=== PATIENT | male | born 1965 | race Caucasian/White ===

== ENCOUNTER 2016-09-24 14:09 | Emergency (ER) | payer MEDICARE ==
[~2016-09-24] VITALS: Ht 180.3 cm; Wt 85.3 kg
[~2016-09-24 14:09] MED LIST: /DULO30CA PO; ACET500C OR; AMBI10TA OR; ASPI81TA83 OR; COUM1TAB17 PO; COUM2.5T17 PO; CYMB60CA3 PO; EPIP0.3I IM; LISI10TA4 PO; LISINOPRIL/HCTZ PO; LYRI150C OR; MULTIVIT PO; OXYC-141 PO; OXYC-517 PO; PERC5TAB12 PO; TYLE325T5 PO
[2016-09-24] MEDS ORDERED: HYDROmorphone HCL 1 MG/ML SYRINGE (J1170) IM ONE (15:30)
[2016-09-24] MEDS ORDERED: HYDROmorphone HCL 1 MG/ML SYRINGE (J1170) IV ONE (15:30)
--- NOTE | 2016-09-24 16:18 | REP ---
RIGHT FEMUR: AP and lateral views of the right femur are performed. No fracture or dislocation is seen. Total right knee prosthesis is noted. There are moderate degenerative changes at the right hip with joint space narrowing, subchondral sclerosis and spurring. IMPRESSION: No acute fracture or dislocation. Signed by Dre Fuller MD 09/24/2016 05:26 P
[2016-09-24 16:26] VITALS: BP 153/87
[2016-12-21] MEDS ORDERED: VITA100054 PO (11:05)
[2016-12-21] MEDS ORDERED: AMBI5TAB PO (11:05)
[2017-01-12] MEDS ORDERED: OXYC10TA12 PO (09:55)
[2017-01-12] MEDS ORDERED: COLA100C5 PO (09:55)
== END 2016-09-24 16:35 | disposition home or self-care (01) ==
LOC: M ED 15:27
DX: S73.101A Unspecified sprain of right hip, initial encounter (principal); W01.0XXA Fall on same level from slipping, tripping and stumbling without subsequent striking against object, initial encounter; Y92.019 Unspecified place in single-family (private) house as the place of occurrence of the external cause; Y93.89 Activity, other specified; Y99.9 Unspecified external cause status; I10 Essential (primary) hypertension; J30.1 Allergic rhinitis due to pollen; Z87.442 Personal history of urinary calculi; Z96.651 Presence of right artificial knee joint; Z79.891 Long term (current) use of opiate analgesic; Z79.899 Other long term (current) drug therapy; Z91.030 Bee allergy status
CPT/HCPCS: 73552; 96372; 99283; J1170

== ENCOUNTER → 2016-09-28 | Outpatient (CLI) | payer MEDICARE ==
[~2016-09-28] MED LIST changes: +CONRAY-43 43% 50ML VIAL (Q9960) As Ordered ONE; +COUM2.5T11 PO; -COUM2.5T17 PO; +LIDOCAINE 1% MDV 20ML VIAL As Ordered ONE; -OXYC-141 PO; +OXYC-299 PO; -PERC5TAB12 PO; +PERC5TAB6 PO; +TRIAMCINOLONE ACETONIDE SUSP 40 MG/ML VIAL (J3301) As Ordered ONE
== END ==
LOC: M RADPRO 10:18
PROVIDERS: ATTEND Physician Assistant
DX: M16.11 Unilateral primary osteoarthritis, right hip (principal); Z91.030 Bee allergy status; J30.89 Other allergic rhinitis
CPT/HCPCS: 20610; 77002; J3301; Q9960

== ENCOUNTER 2016-12-22 13:20 | Outpatient (CLI) | payer MEDICARE ==
[~2016-12-22] VITALS: Ht 180.3 cm; Wt 90.7 kg
[~2016-12-22 13:20] MED LIST changes: +AMBI5TAB PO; -CONRAY-43 43% 50ML VIAL (Q9960) As Ordered ONE; -COUM2.5T11 PO; +COUM2.5T17 PO; -LIDOCAINE 1% MDV 20ML VIAL As Ordered ONE; +OXYC-141 PO; -OXYC-299 PO; +PERC5TAB12 PO; -PERC5TAB6 PO; -TRIAMCINOLONE ACETONIDE SUSP 40 MG/ML VIAL (J3301) As Ordered ONE; +VITA100054 PO
[2016-12-22] MEDS ORDERED: NS 1,000 ML IV ONE (13:30)
[2016-12-22] MEDS ORDERED: LIDOCAINE 2% INJ 100 MG/5 ML SDV (FOR ANES.) As Ordered ONE (13:58)
[2016-12-22] MEDS ORDERED: PROPOFOL 200 MG/20 ML VIAL As Ordered ONE (13:58)
--- NOTE | 2016-12-22 14:17 | ROOR ---
Patient Name: Aaron Ceja Procedure Date: 12/22/2016 1:58 PM Date of : 1965 Age: 51 Room: [facility] Gender: Male Note Status: Finalized Procedure: Total Colonoscopy to Cecum Indications: Screening for colorectal malignant neoplasm, Last colonoscopy: 2006 Providers: Zackary Torres MD Referring MD: KAPIL BRISENO Requesting Provider: Medicines: Monitored Anesthesia Care Complications: No immediate complications. Procedure: Pre-Anesthesia Assessment: - The heart rate, respiratory rate, oxygen saturations, blood pressure, adequacy of pulmonary ventilation, and response to care were monitored throughout the procedure. The Colonoscope was introduced through the anus and advanced to the cecum, identified by appendiceal orifice and ileocecal valve. The colonoscopy was performed without difficulty. The patient tolerated the procedure well. The quality of the bowel preparation was excellent. Findings: The perianal and digital rectal examinations were normal. Non-bleeding internal hemorrhoids were found during retroflexion. The hemorrhoids were small and Grade I (internal hemorrhoids that do not prolapse). Multiple small and large-mouthed diverticula were found in the recto-sigmoid colon, sigmoid colon and descending colon. The exam was otherwise without abnormality on direct and retroflexion views. Impression: - Non-bleeding internal hemorrhoids. - Diverticulosis in the recto-sigmoid colon, in the sigmoid colon and in the descending colon. - The examination was otherwise normal on direct and retroflexion views. - No specimens collected. - The exam was otherwise normal to the cecum. Recommendation: - Patient has a contact number available for emergencies. The signs and symptoms of potential delayed complications were discussed with the patient. Return to normal activities tomorrow. Written discharge instructions were provided to the patient. - High fiber diet. - Discharge patient to home. - Continue present medications. - Repeat colonoscopy in 10 years for screening purposes. - Return to referring physician. - The findings and recommendations were discussed with the patient's family. Zackary Torres MD Zackary Torres MD 12/22/2016 2:17:02 PM This report has been signed electronically. Number of Addenda: 0 Note Initiated On: 12/22/2016 1:58 PM Estimated Blood Loss: Estimated blood loss: none.
[2016-12-22 14:43] VITALS: BP 120/83
[2017-01-12] MEDS ORDERED: COLA100C5 PO (09:55)
[2017-01-12] MEDS ORDERED: OXYC10TA12 PO (09:55)
== END 2016-12-22 14:46 | disposition home or self-care (01) ==
LOC: M OPP 13:20
PROVIDERS: ATTEND Internal Medicine Gastroenterology
DX: Z12.11 Encounter for screening for malignant neoplasm of colon (principal); K64.0 First degree hemorrhoids; K57.30 Diverticulosis of large intestine without perforation or abscess without bleeding; I10 Essential (primary) hypertension; F17.210 Nicotine dependence, cigarettes, uncomplicated; M19.90 Unspecified osteoarthritis, unspecified site; Z79.899 Other long term (current) drug therapy; Z91.030 Bee allergy status; J30.2 Other seasonal allergic rhinitis

== ENCOUNTER → 2017-01-12 | Outpatient (CLI) | payer MEDICARE ==
[~2017-01-12] MED LIST changes: +COLA100C5 PO; +OXYC10TA12 PO
[2017-01-12 11:04] LABS: MEAN CORPUSCULAR HEMOGLOBIN 32.8 pg (27.0-33.0); MEAN CORPUSCULAR HGB CONC 33.6 g/dl (32.0-36.5); MEAN CORPUSCULAR VOLUME 97.8 fl (80.0-96.0); RED CELL DISTRIBUTION WIDTH 13.8 % (11.5-14.5); WHITE BLOOD COUNT 10.8 10^3/uL (4.0-10.0)
[2017-01-12 11:14] LABS: INR 1.07
--- NOTE | 2017-01-12 11:41 | REP ---
A PA and lateral chest: Comparison 11/03/2015. There is chronic elevation of the right hemidiaphragm, unchanged, likely eventration. There is an orthopedic stabilization plate of the left clavicle, unchanged. Lung copeland are clear. Cardiac size is normal. The eligio, mediastinum, and bony thorax are unremarkable. Impression: There are no acute cardiopulmonary findings. There are chronic stable findings as described. Signed by Dre Rick MD 01/12/2017 11:32 A
[2017-01-12 11:44] LABS: ALBUMIN/GLOBULIN RATIO 1.29 (1.00-1.93); ALKALINE PHOSPHATASE 101 U/L (45-117); ALT/SGPT 22 U/L (12-78); ANION GAP 5 MEQ/L (8-16); AST/SGOT 14 U/L (15-37); BILIRUBIN,TOTAL 0.4 MG/DL (0.2-1.0); BLOOD UREA NITROGEN 19 MG/DL (7-18); CALCIUM LEVEL 9.6 MG/DL (8.5-10.1); CARBON DIOXIDE LEVEL 29 MEQ/L (21-32); CHLORIDE LEVEL 106 MEQ/L (98-107); CREATININE FOR GFR 1.09 MG/DL (0.70-1.30); GLOMERULAR FILTRATION RATE > 60.0 (>56); GLUCOSE, FASTING 90 MG/DL (70-105); SODIUM LEVEL 140 MEQ/L (136-145); TOTAL PROTEIN 7.1 GM/DL (6.4-8.2)
--- NOTE | 2017-01-12 20:58 | ECGEPIP ---
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
== END ==
LOC: M ADMPAT 09:25
PROVIDERS: ATTEND Orthopaedic Surgery
DX: M16.11 Unilateral primary osteoarthritis, right hip (principal); Z01.818 Encounter for other preprocedural examination; I10 Essential (primary) hypertension; F32.9 Major depressive disorder, single episode, unspecified; Z79.899 Other long term (current) drug therapy

== ENCOUNTER 2017-01-26 05:44 | Inpatient (IN) | payer MEDICARE ==
[2017-01-12 09:58] VITALS: BP 128/80
--- NOTE | 2017-01-24 08:04 | HPE ---
DATE OF ADMISSION: 01/26/2017 ATTENDING PHYSICIAN: Dr. Rivero CHIEF COMPLAINT: Right hip pain and stiffness. HISTORY: This pleasant 51-year-old male patient with progressive worsening left hip pain and stiffness. He failed to improve with conservative management. He has elected for surgery for his continued symptoms. He has pain with weightbearing activities and activities of daily living. He has consented for a right total hip arthroplasty by Dr. Rivero. X-rays notable for end-stage degenerative changes of his right hip. Medical optimization by Dr. Cali not present for review today. ALLERGIES: NO KNOWN DRUG ALLERGIES. CURRENT MEDICATIONS: - Lisinopril 40 mg 1 tablet once per day - Colace 100 mg 1 tablet twice a day - Ambien 5 mg at bedtime as needed - vitamin D 50,000 units 1 tablet once per week - oxycodone 10 mg 1 tablet twice a day as needed for pain MEDICAL HISTORY: Includes symptomatic osteoarthritis of the right hip, hypertension, depression. PAST SURGICAL HISTORY: Includes kidney stone, bilateral knee replacement. SOCIAL HISTORY: Does smoke. He does not use alcohol. FAMILY HISTORY: Noncontributory. REVIEW OF SYSTEMS: Denies fever or chills. Denies chest pain, shortness breath or cough. Denies difficulty breathing. Denies abdominal pain. Denies nausea or vomiting. He has persistent pain in his right hip with weightbearing activities. PHYSICAL EXAMINATION: Exam today reveals a well-nourished, well-developed alert male patient. His mood and affect appropriate for situation. He sits comfortably in the exam room table. Neck is supple without adenopathy or JVD. Lungs are clear to auscultation without rales or wheeze. Heart: Regular rate and rhythm. Abdomen: Bowel sounds are present. Vital signs: Height 70 inches, weight 196 pounds, temperature 97.3, blood pressure 110/62, pulse 71, respirations 15. Exam of the right hip reveals a decreased internal-external rotation of the hip and very irritable hip range of motion. Straight leg raise testing is negative. The skin is intact. No erythema, edema or ecchymosis. Well-perfused right lower extremity sensation is intact. Distal neurovascular intact as well. LABORATORY DATA: His PT is 14.0, INR 1.07, glucose 90.19, creatinine 1.09, sodium 140, potassium 5. Urine culture no growth. Nasal culture normal yossi. Urinalysis within normal limits. Sed rate 12, WBC count is 10.8, RBC count 4.84, hemoglobin 14.7, hematocrit 43.7. Chest x-ray: No acute cardiopulmonary process noted. EKG sinus rhythm. IMPRESSION: Symptomatic osteoarthritis of the right hip. PLAN: He has consented for right total hip arthroplasty by Dr. Rivero. cc: Stephon Rivero MD
[~2017-01-26] VITALS: Ht 180.3 cm; Wt 88.0 kg
[2017-01-26] VITALS (8 sets, daily range): BP systolic 100–122; BP diastolic 63–82; O2SAT 98
[2017-01-26] MEDS ORDERED: LR 1,000 ML IV ONE (06:00)
[2017-01-26] MEDS ORDERED: LR 1,000 ML IV SCH ×3 (06:30→09:45)
[2017-01-26] MEDS ORDERED: ceFAZolin 1GM INJ (J0690) As Ordered ONE (06:36)
[2017-01-26] MEDS ORDERED: EPINEPHrine INJ 1 MG/ML 1ML AMP As Ordered ONE (06:37)
[2017-01-26] MEDS ORDERED: TRANEXAMIC ACID 100 MG/ML 10ML VIAL As Ordered ONE (06:37)
--- NOTE | 2017-01-26 08:05 | IPN ---
DATE: 01/26/2017 Patient wishes to proceed with a right total hip arthroplasty. He was seen and examined today. He understands the nature of the procedure, the risks of bleeding, infection, damage to nerves, vessels, persistent pain, wear loosening, dislocation, leg length inequality, blood clots, medical problems, , among others. I anticipate doing a right [place] total hip arthroplasty and he has chosen to go with a likely ceramic head.
[2017-01-26] MEDS ORDERED: VASOPRESSIN INJ 20 UNITS/ML VIAL As Ordered ONE (08:08)
[2017-01-26] MEDS ORDERED: KETAMINE HCL 200 MG/20 ML VIAL As Ordered ONE (08:29)
[2017-01-26] MEDS ORDERED: ATROPINE SULF 1MG/10ML SYRINGE (J0461) As Ordered ONE ×2 (08:38→10:37)
[2017-01-26] MEDS ORDERED: CALCIUM CHLORIDE 10% 1 GM/10 ML SYR As Ordered ONE (08:38)
[2017-01-26] MEDS ORDERED: LIDOCAINE 2% INJ 100 MG/5 ML SDV (FOR ANES.) As Ordered ONE (08:38)
[2017-01-26] MEDS ORDERED: fentaNYL 100 MCG/2 ML INJECTION (J3010) As Ordered ONE (08:39)
[2017-01-26] MEDS ORDERED: MIDAZOLAM INJ 2 MG/2 ML VIAL (J2250) As Ordered ONE (08:39)
[2017-01-26] MEDS ORDERED: PROPOFOL 500 MG/50 ML VIAL As Ordered ONE (08:39)
[2017-01-26] MEDS ORDERED: PHENYLEPHRINE INJ 10MG/ML VIAL (J2370) As Ordered ONE (08:42)
[2017-01-26] MEDS ORDERED: PHENYLephrine HCL 500 MCG/5 ML (100MCG/ML) SYRINGE (J2370) As Ordered ONE (08:46)
[2017-01-26] MEDS ORDERED: MORPHINE 1MG/ML IN 0.9% NACL 100ML IV BAG As Ordered ONE (08:46)
[2017-01-26] MEDS ORDERED: ePHEDrine SULFATE 25 MG/5 ML(5MG/ML) SYRINGE As Ordered ONE (08:46)
[2017-01-26] MEDS ORDERED: ONDANSETRON 4MG/2ML VIAL (J2405) IV PRN ×2 (09:45→10:00)
[2017-01-26] MEDS ORDERED: fentaNYL 100 MCG/2 ML INJECTION (J3010) IV PRN (09:45)
[2017-01-26] MEDS ORDERED: MORPHINE 1MG/ML IN 0.9% NACL 100ML IV BAG IV PRN (10:00)
[2017-01-26] MEDS ORDERED: diphenhydrAMINE INJ 50MG/ML VIAL (J1200) IV PRN (10:00)
[2017-01-26] MEDS ORDERED: NALOXONE INJ 0.4 MG/1 ML VIAL (J2310) IV PRN ×2 (10:00→15:30)
[2017-01-26] MEDS ORDERED: EPIDURAL/PCA KEYS XX PRN (10:00)
[2017-01-26] MEDS ORDERED: NALBUPHINE HCL 10 MG/ML AMP (J2300) IV PRN (10:00)
[2017-01-26] MEDS ORDERED: ACETAMINOPHEN TAB 650MG DOSE (2X325MG) PO PRN (10:00)
[2017-01-26] MEDS ORDERED: FLEET ENEMA PR PRN (10:00)
--- NOTE | 2017-01-26 11:33 | RO ---
DATE OF PROCEDURE: 01/26/2017 PREOPERATIVE DIAGNOSIS: Right hip osteoarthritis. POSTOPERATIVE DIAGNOSIS: Right hip osteoarthritis. PROCEDURE: Right total hip arthroplasty using a Bowie size 6, a +5, 36 ball and a 54 cup. This is a ceramic ball SURGEON: Stephon Rivero MD PATCHER WOOD WELDER: Letitia Rivero NP ANESTHESIA: Spinal. ESTIMATED BLOOD LOSS: 200 COMPLICATIONS: None. INDICATIONS: This is a 51-year-old gentleman who has had gradually worsening right hip pain. He has done well with knee replacement in the past. He wished to go ahead with a hip replacement due to severe arthritis and ongoing pain. He understood the nature of this. The risks of bleeding, infection, damage to nerves, vessels, persistent pain, wear loosening, dislocation, leg length inequality, blood clots, medical problems, among others. DESCRIPTION OF PROCEDURE: The patient taken to replace supine position after spinal anesthesia was induced. He was placed in the left lateral decubitus position on the [place] positioner. All areas were padded appropriately. The right hip was prepped and draped in usual sterile fashion. Time-out was performed. I then created a longitudinal incision over the lateral aspect the hip and sharp dissection was carried down subcutaneous tissue, controlled hemostasis with cautery, incised the fascia jessica and then divided the abductors, taking approximately the anterior 40% of the abductor off of the femur, gradually externally rotated the femur as we exposed the neck and divided the labrum. I then dislocated the hip with a bone hook and the journeyman operator assistant's help and put the leg in the bag. Used a canal initiating reamer followed by the intramedullary canal finding reamer, the lateralizing reamer and then placed a trial broach in the canal as a template and made the neck cut at about three-quarters of a fingerbreadth up from the lesser trochanter. The head was removed. There is advanced arthritis. We then directed our attention to the acetabulum, anterior and posterior retractors were placed. I removed the labrum from around the acetabulum and the floor of the acetabulum was palpated. I then sequentially began reaming, reamed up to a size 53, which had good bleeding bone and good concentric reaming. I felt that this was the appropriate size. I then irrigated copiously and placed the 54 cup in the appropriate amount of anteversion and horizontal tilt and then impacted it in place. Excellent fit was noted. It seemed to be down and well seated. The apex hole eliminator was placed. The 54 x 36 cup was then inserted, impacted in place, that is the liner impacted into the cup. Again irrigated and directed our attention back to the femur, removed some of the proximal metaphyseal bone and then broached up to a size 6, which had a good fit. It was well aligned with the cut. Then I placed the +1.5 followed by the +5 neck length on the 36 ball and reduced the hip with the journeyman operator assistant's help. Put the hip through range of motion. I liked the 5 better. There was still little bit of shuck in full extension and it was very stable in flexion, internal rotation, extension, external rotation. There was no impingement. I then removed the trial components and irrigated copiously. Impacted in the size 6 standard stem Bowie and this was very well seated. I had irrigated prior to placement of this. I then dried the taper placed the ceramic 36 ball +5, impacted this in place, made sure it was well seated and then reduced the hip the journeyman operator assistant's help. I put the hip through range of motion and was very pleased with the stability and soft tissue tension and positioning. Copious irrigation was then performed. At this point, TXA solution was utilized. The deep layer was closed with #1-0 Vicryl suture. The abductor was repaired with multiple #1-0 Vicryl sutures and excellent repair was noted. I then repaired the fascia jessica with #1-0 Vicryl suture in interrupted fashion, followed by a Stratafix running suture in both directions. Excellent watertight closure was noted. I then irrigated, closed the subcutaneous with #2-0 Vicryl and the skin with janna. Sterile dressing was applied. He was taken to recovery room in stable condition. There were no known complications. He appeared to have symmetric leg lengths. The journeyman operator assistant was instrumental in holding retractors and helping reduce and dislocate the hip, assisting in wound closure.
[2017-01-26] MEDS ORDERED: ACETAMINOPHEN 500 MG TAB PO PRN (15:30)
[2017-01-26] MEDS: PERCOCET 5MG/325MG TAB PO PRN ×2 (15:42→23:58)
[2017-01-26] MEDS ORDERED: WARFARIN SOD 7.5 MG TAB PO ONE (17:00)
[2017-01-26] MEDS: ACETAMINOPHEN 500 MG TAB PO SCH (21:05)
[2017-01-26] MEDS: MORPHINE 30 MG SA TAB PO SCH (21:05)
[2017-01-27 00:45] VITALS: BP 116/58
[2017-01-27] MEDS: PERCOCET 5MG/325MG TAB PO PRN ×3 (04:14→18:46)
[2017-01-27 06:00] VITALS: BP 106/66
[2017-01-27 07:11] LABS: MEAN CORPUSCULAR HEMOGLOBIN 32.4 pg (27.0-33.0); MEAN CORPUSCULAR HGB CONC 33.7 g/dl (32.0-36.5); MEAN CORPUSCULAR VOLUME 96.1 fl (80.0-96.0); RED CELL DISTRIBUTION WIDTH 13.5 % (11.5-14.5); WHITE BLOOD COUNT 10.5 10^3/uL (4.0-10.0)
[2017-01-27 07:25] LABS: INR 1.34
--- NOTE | 2017-01-27 07:45 | IPNPDOC ---
Subjective Date Seen The patient was seen on 01/27/17. Subjective Chief Complaint/HPI The patient is a 51-year-old male admitted with a reason for visit of Arthritis Right Hip. General: Denies: ROS Unobtainable, Chills, Night Sweats, Fatigue, Malaise, Normal Appetite, Other Symptoms Constitutional: Denies: Chills, Fever, Malaise, Night Sweats, Weakness, Fatigue , Weight Loss, Lethargy, Other Eyes: Denies: Pain, Vision change, Conjunctivae inflammation, Eyelid inflammation, Redness, Other ENT: Denies: Head Aches, Ear Pain, Dysphagia, Sinus Congestion, Post Nasal Drip , Sore Throat, Epistaxis, Other Symptoms Skin: Denies: Rash, Lesions, Jaundice, Bruising, Itching, Dry, Breakdown, Nail Changes, Other Pulmonary: Denies: Dyspnea, Cough, Pleuritic Chest Pain, Other Symptoms Cardiovascular: Denies: Chest Pain, Palpitations, Orthopnea, Paroxysmal Noc. Dyspnea, Edema, Lt Headedness, Other Symptoms Gastrointestinal: Denies: Nausea, Vomiting, Abdominal Pain, Diarrhea, Constipation, Melena, Hematochezia, Other Symptoms Genitourinary: Denies: Dysuria, Frequency, Incontinence, Hematuria, Retention, Other Symptoms Hematologic: Denies: Bruising, Bleeding Excessively, Petecchia, Purpura, Enlarged Lymph Nodes, Other Hematologic Musculoskeletal: Reports: Leg Pain Objective Physical Examination General Exam: Positive: Alert, Cooperative, No Acute Distress Eye Exam: Positive: PERRLA, Conjunctiva & lids normal, EOMI ENT Exam: Positive: Atraumatic Neck Exam: Positive: Supple Chest Exam: Positive: Clear to auscultation, Normal air movement Heart Exam: Positive: Rate Normal, Regular Rhythm Abdomen Exam: Positive: Normal bowel sounds, Soft, Negative: Tenderness Extremity Exam: Negative: Edema Neuro Exam: Positive: Normal Speech Psych Exam: Positive: Mental status NL, Mood NL Assessment /Plan Problems (1) Osteoarthritis Status: Chronic Problem Specific Plan: Consult Specialist (2) Hypertension Status: Chronic Problem Specific Plan: Monitor Clinically Problem Text: lisinopril on hold (3) Depression Status: Chronic Problem Specific Plan: Monitor Clinically Plan/VTE VTE Prophylaxis Ordered?: Yes (as per ortho) Plan Diet: Continue Current (as per ortho) Activity: Continue Current Therapy: PT Diagnostics: Repeat Labs in AM Anticipated Discharge: Home, Home With Services VS, I&O, 24H, [place]q Vital Signs/I&O Vital Signs Date Time Temp Pulse Resp B/P (MAP) Pulse Ox O2 Delivery O2 Flow Rate FiO2 01/27/17 06:00 97.8 91 18 106/66 (79) 96 Nasal Cannula 2.0 Laboratory Data 24H LABS Laboratory Tests 2 01/27/17 06:45: Nucleated Red Blood Cells % (auto) 0.0, Prothrombin Time 16.9H, Prothromb Time International Ratio 1.34 CBC/BMP Laboratory Tests 01/27/17 06:45 Red Blood Count 4.11 L, Mean Corpuscular Volume 96.1 H, Mean Corpuscular Hemoglobin 32.4, Mean Corpuscular Hemoglobin Concent 33.7, Red Cell Distribution Width 13.5 FATUMA WANG MD Jan 27, 2017 07:45
[2017-01-27] MEDS: ACETAMINOPHEN 500 MG TAB PO SCH ×2 (08:11→21:50)
[2017-01-27] MEDS: SENOKOT S TAB PO SCH ×2 (08:11→21:50)
[2017-01-27] MEDS: MIRALAX *UNIT DOSE* 17GM PACKET PO SCH (08:12)
[2017-01-27] MEDS: MORPHINE 30 MG SA TAB PO SCH ×2 (08:12→21:49)
[2017-01-27] MEDS: MOM 30ML SUSPENSION UDC PO SCH (08:12)
--- NOTE | 2017-01-27 09:21 | REP ---
RIGHT HIP, TWO VIEWS: HISTORY: Hip replacement. COMPARISON: 09/24/2016. The patient is status post right total hip replacement. There is no acute fracture dislocation. Surgical janna are present in the overlying soft tissue. IMPRESSION: The patient is status post right total hip replacement. There is anatomic alignment. Signed by Luis Alberto Moise MD 01/27/2017 09:28 A
[2017-01-27 15:35] VITALS: BP 80/50
[2017-01-27] MEDS ORDERED: NS 500 ML IV ONE (16:15)
[2017-01-27 16:28] LABS: ANION GAP 7 MEQ/L (8-16); BLOOD UREA NITROGEN 21 MG/DL (7-18); CALCIUM LEVEL 8.9 MG/DL (8.5-10.1); CARBON DIOXIDE LEVEL 26 MEQ/L (21-32); CHLORIDE LEVEL 99 MEQ/L (98-107); CREATININE FOR GFR 1.06 MG/DL (0.70-1.30); GLOMERULAR FILTRATION RATE > 60.0 (>56); GLUCOSE, FASTING 98 MG/DL (70-105); POTASSIUM SERUM 4.5 MEQ/L (3.5-5.1); SODIUM LEVEL 132 MEQ/L (136-145)
[2017-01-27] MEDS ORDERED: WARFARIN SOD 7.5 MG TAB PO ONE (17:00)
[2017-01-27 18:46] VITALS: BP 119/59
[2017-01-27 22:00] VITALS: BP 107/68; O2SAT 94
[2017-01-28 06:00] VITALS: BP 127/86
[2017-01-28 06:38] LABS: MEAN CORPUSCULAR HEMOGLOBIN 32.4 pg (27.0-33.0); MEAN CORPUSCULAR HGB CONC 33.2 g/dl (32.0-36.5); MEAN CORPUSCULAR VOLUME 97.5 fl (80.0-96.0); PLATELET COUNT, AUTOMATED 257 10^3/uL (150-450); RED CELL DISTRIBUTION WIDTH 13.6 % (11.5-14.5); WHITE BLOOD COUNT 9.7 10^3/uL (4.0-10.0)
[2017-01-28] MEDS: PERCOCET 5MG/325MG TAB PO PRN ×2 (06:47→14:12)
[2017-01-28 06:51] LABS: INR 2.14
[2017-01-28] MEDS: MIRALAX *UNIT DOSE* 17GM PACKET PO SCH (08:43)
[2017-01-28] MEDS: MORPHINE 30 MG SA TAB PO SCH ×2 (08:44→21:07)
[2017-01-28] MEDS: ACETAMINOPHEN 500 MG TAB PO SCH ×2 (08:45→21:08)
[2017-01-28] MEDS: SENOKOT S TAB PO SCH ×2 (08:45→21:08)
[2017-01-28] MEDS: MOM 30ML SUSPENSION UDC PO SCH (08:46)
[2017-01-28 09:00] VITALS: O2SAT 94
[2017-01-28 14:00] VITALS: BP 142/90
[2017-01-28 20:00] VITALS: O2SAT 96
[2017-01-28 22:00] VITALS: BP 128/67
[2017-01-29] MEDS: PERCOCET 5MG/325MG TAB PO PRN ×3 (02:00→11:44)
[2017-01-29 06:00] VITALS: BP_SYST 128; BP_SYST 153; BP_DIAS 67; BP_DIAS 74
[2017-01-29 07:08] LABS: INR 2.46
[2017-01-29] MEDS: MOM 30ML SUSPENSION UDC PO SCH ×2 (08:40→08:41)
[2017-01-29] MEDS: MIRALAX *UNIT DOSE* 17GM PACKET PO SCH ×2 (08:40→08:41)
[2017-01-29] MEDS: ACETAMINOPHEN 500 MG TAB PO SCH (08:40)
[2017-01-29] MEDS: MORPHINE 30 MG SA TAB PO SCH (08:40)
[2017-01-29] MEDS: SENOKOT S TAB PO SCH (08:40)
[2017-01-29] MEDS ORDERED: PERC5TAB12 PO (08:54)
[2017-01-29] MEDS ORDERED: COUM2.5T17 PO (08:56)
--- NOTE | 2017-02-01 18:21 | DSES ---
DATE OF ADMISSION: 01/26/2017 DATE OF DISCHARGE: 01/29/2017 ATTENDING PHYSICIAN: Dr Stephon Rivero ADMITTING DIAGNOSIS: Right hip osteoarthritis. OTHER DIAGNOSES: 1. Hypertension. 2. Depression. DISCHARGE DIAGNOSIS: Right hip osteoarthritis status post right total hip arthroplasty. HISTORY: Patient is a 51-year-old male with progressively worsening right hip pain and stiffness. He failed to improve with conservative measures. He continues to have pain with weightbearing activities and activities of daily living. Patient consented for an elective right total hip arthroplasty with Dr. Rivero for his continued symptoms. OPERATION PERFORMED: Right total hip arthroplasty. HOSPITAL COURSE: The patient underwent a right total hip arthroplasty under spinal anesthesia, which was uneventful. Hospital course was without complication, and he was up with physical therapy per their protocol weightbearing as tolerated on the right lower extremity. He was discharged on oral pain medications and will resume his preoperative medications and diet. He will take his Coumadin and use his thromboembolic deterrent stockings for 30 days postoperatively to prevent deep vein thrombosis. He will followup in our office in 12-14 days for a wound check and staple removal. He is encouraged to contact our office sooner if there is any increased pain, drainage, numbness or tingling in the extremity, redness, fever greater than 101 degrees, or any other concerns. Please see medical record for additional details. PINA
== END 2017-01-29 14:30 | disposition home health service (06) | DRG 470 ==
LOC: M OR 05:44 → M MS5PR 11:55
PROVIDERS: ADMIT Orthopaedic Surgery; ATTEND Orthopaedic Surgery
PROC: 0SR904Z Replacement of Right Hip Joint with Ceramic on Polyethylene Synthetic Substitute, Open Approach (ICD-10-PCS; principal; 2017-01-26 07:30)
DX: M16.11 Unilateral primary osteoarthritis, right hip (principal); I10 Essential (primary) hypertension; F17.210 Nicotine dependence, cigarettes, uncomplicated; F32.9 Major depressive disorder, single episode, unspecified; G47.00 Insomnia, unspecified; J30.9 Allergic rhinitis, unspecified; E55.9 Vitamin D deficiency, unspecified; Z96.653 Presence of artificial knee joint, bilateral; Z79.891 Long term (current) use of opiate analgesic; Z79.899 Other long term (current) drug therapy; Z91.030 Bee allergy status

== ENCOUNTER → 2017-02-01 | Outpatient (REF) | payer MEDICARE ==
[2017-02-01 14:24] LABS: INR 1.45
== END ==
LOC: M SHH 13:34
PROVIDERS: ATTEND Nurse Practitioner Family
DX: Z51.81 Encounter for therapeutic drug level monitoring (principal); Z79.01 Long term (current) use of anticoagulants

== ENCOUNTER → 2017-02-03 | Outpatient (REF) | payer MEDICARE ==
[2017-02-03 14:55] LABS: INR 1.46
== END ==
LOC: M SHH 14:07
PROVIDERS: ATTEND Nurse Practitioner Family
DX: Z51.81 Encounter for therapeutic drug level monitoring (principal); Z79.01 Long term (current) use of anticoagulants

== ENCOUNTER → 2017-02-07 | Outpatient (REF) | payer MEDICARE ==
[2017-02-07 14:00] LABS: INR 1.4
== END ==
LOC: M SHH 13:18
PROVIDERS: ATTEND Nurse Practitioner Family
DX: Z51.81 Encounter for therapeutic drug level monitoring (principal); Z79.01 Long term (current) use of anticoagulants

== ENCOUNTER → 2017-02-17 | Outpatient (REF) | payer MEDICARE ==
[2017-02-17 13:08] LABS: INR 1.59
== END ==
LOC: M SHH 12:34
PROVIDERS: ATTEND Nurse Practitioner Family
DX: Z51.81 Encounter for therapeutic drug level monitoring (principal); Z79.01 Long term (current) use of anticoagulants

== ENCOUNTER → 2017-02-22 | Outpatient (REF) | payer MEDICARE ==
[2017-02-22 15:22] LABS: INR 1.09
== END ==
LOC: M SHH 14:37
PROVIDERS: ATTEND Nurse Practitioner Family
DX: Z51.81 Encounter for therapeutic drug level monitoring (principal); Z79.01 Long term (current) use of anticoagulants

== ENCOUNTER → 2017-02-24 | Outpatient (REF) | payer MEDICARE ==
[2017-02-24 14:23] LABS: INR 1.29
== END ==
LOC: M SHH 13:49
PROVIDERS: ATTEND Nurse Practitioner Family
DX: Z51.81 Encounter for therapeutic drug level monitoring (principal); Z79.01 Long term (current) use of anticoagulants

== ENCOUNTER 2017-12-01 20:05 | Emergency (ER) | payer MEDICARE ==
[2017-12-01] MEDS: methylPREDNISolone INJ 125 MG/2 ML VIAL (J2930) IV (20:26)
[2017-12-01] MEDS: diphenhydrAMINE INJ 50MG/ML VIAL (J1200) IV (20:27)
[2017-12-01 20:28] LABS: BASO % 0.4 % (0.0-1.0); EOS # 0.2 10^3/uL (0.0-0.50); EOS % 2.4 % (0.0-3.0); HEMATOCRIT 46.4 % (42.0-52.0); HEMOGLOBIN 16.2 g/dl (13.5-17.5); IMMATURE GRANULOCYTE % 0.4 % (0-3.0); LYMPH # 2.1 10^3/uL (1.5-4.5); LYMPH % 26.6 % (24.0-44.0); MEAN CORPUSCULAR HEMOGLOBIN 32.9 pg (27.0-33.0); MEAN CORPUSCULAR HGB CONC 34.9 g/dl (32.0-36.5); MEAN CORPUSCULAR VOLUME 94.3 fl (80.0-96.0); MONO # 0.7 10^3/uL (0.0-0.8); MONO % 8.5 % (0.0-5.0); NEUTROPHILS # 4.9 10^3/uL (1.8-7.7); NEUTROPHILS % 61.7 % (36.0-66.0); PLATELET COUNT, AUTOMATED 313 10^3/uL (150-450); RED BLOOD COUNT 4.92 10^6/uL (4.30-6.10); WHITE BLOOD COUNT 7.9 10^3/uL (4.0-10.0)
[2017-12-01] MEDS: FAMOTIDINE IV BAG 20 MG in APPROPRIATE DILUENT 1 EA IV (20:36)
[2017-12-01 20:55] LABS: ANION GAP 10 MEQ/L (8-16); BLOOD UREA NITROGEN 31 MG/DL (7-18); CALCIUM LEVEL 9.5 MG/DL (8.5-10.1); CARBON DIOXIDE LEVEL 22 MEQ/L (21-32); CHLORIDE LEVEL 108 MEQ/L (98-107); CREATININE FOR GFR 1.46 MG/DL (0.70-1.30); GLOMERULAR FILTRATION RATE 53.6 (>56); GLUCOSE, FASTING 90 MG/DL (70-100); POTASSIUM SERUM 4.4 MEQ/L (3.5-5.1); SODIUM LEVEL 140 MEQ/L (136-145)
== END 2017-12-01 23:52 | disposition home or self-care (01) ==
LOC: M ED 20:05
DX: T63.441A Toxic effect of venom of bees, accidental (unintentional), initial encounter (principal); R21 Rash and other nonspecific skin eruption; L29.9 Pruritus, unspecified; F17.200 Nicotine dependence, unspecified, uncomplicated; I10 Essential (primary) hypertension
CPT/HCPCS: J1200

== ENCOUNTER → 2018-03-20 | Outpatient (CLI) | payer MEDICARE ==
[2018-03-20 13:34] LABS: ANION GAP 7 MEQ/L (8-16); BLOOD UREA NITROGEN 22 MG/DL (7-18); CALCIUM LEVEL 8.8 MG/DL (8.5-10.1); CARBON DIOXIDE LEVEL 24 MEQ/L (21-32); CHLORIDE LEVEL 108 MEQ/L (98-107); CHOLESTEROL LEVEL 161 MG/DL (<200); CHOLESTEROL RISK RATIO 4.025 (<5); CREATININE FOR GFR 1.06 MG/DL (0.70-1.30); GLOMERULAR FILTRATION RATE > 60.0 (>56); GLUCOSE, FASTING 89 MG/DL (70-100); HDL CHOLESTEROL 40 MG/DL (>40); LDL CHOLESTEROL 104 MG/DL (<100); NON-HDL-C 121 MG/DL; POTASSIUM SERUM 4.9 MEQ/L (3.5-5.1); SODIUM LEVEL 139 MEQ/L (136-145); TRIGLYCERIDES LEVEL 87 MG/DL (<150)
[2018-03-20 13:36] LABS: TOTAL 25(OH) VITAMIN D 37.9 NG/ML (30.0-100.0)
== END ==
LOC: M LAB 12:12
DX: I10 Essential (primary) hypertension (principal); E55.9 Vitamin D deficiency, unspecified
CPT/HCPCS: 82306

== ENCOUNTER 2018-04-28 06:02 | Day surgery (SDC) | payer MEDICARE ==
[~2018-04-28] VITALS: Ht 180.3 cm; Wt 91.6 kg
[~2018-04-28 06:02] MED LIST changes: +GABA-843 PO; +PRED20TA PO; +VITA50005 PO
[2018-04-28] MEDS ORDERED: LR 1,000 ML IV ONE (07:00)
[2018-04-28] MEDS ORDERED: LIDOCAINE 1% SDV INJ 30 ML VIAL As Ordered ONE (07:11)
[2018-04-28] MEDS ORDERED: BUPIVACAINE HCL 0.25% 30 ML VIAL As Ordered ONE (07:11)
[2018-04-28] MEDS ORDERED: NEOSTIGMINE 10 MG/10 ML VIAL (J2710) As Ordered ONE (07:49)
[2018-04-28] MEDS ORDERED: ONDANSETRON 4MG/2ML VIAL (J2405) As Ordered ONE (07:49)
[2018-04-28] MEDS ORDERED: ROCURONIUM BROMIDE 50 MG/5 ML VIAL As Ordered ONE ×2 (07:49→08:20)
[2018-04-28] MEDS ORDERED: GLYCOPYRROLATE INJ 0.2 MG/ML 2 ML VIAL As Ordered ONE (07:49)
[2018-04-28] MEDS ORDERED: MIDAZOLAM INJ 2 MG/2 ML VIAL (J2250) As Ordered ONE (07:49)
[2018-04-28] MEDS ORDERED: fentaNYL 250 MCG/5 ML INJECTION (J3010) As Ordered ONE (07:49)
[2018-04-28] MEDS ORDERED: dexameTHASONE 4 MG/ML 1ML VIAL (J1100) As Ordered ONE (07:49)
[2018-04-28] MEDS ORDERED: PROPOFOL 200 MG/20 ML VIAL As Ordered ONE (07:49)
[2018-04-28] MEDS ORDERED: METOCLOPRAMIDE INJ 10MG/2ML VIAL (J2765) As Ordered ONE (07:49)
[2018-04-28] MEDS ORDERED: LIDOCAINE 2% INJ 100 MG/5 ML SDV (FOR ANES.) As Ordered ONE (07:49)
[2018-04-28] MEDS ORDERED: KETOROLAC 60 MG/2 ML VIAL (J1885) As Ordered ONE (08:12)
[2018-04-28] MEDS ORDERED: LR 1,000 ML IV SCH (09:30)
[2018-04-28] MEDS ORDERED: ONDANSETRON 4MG/2ML VIAL (J2405) IV PRN ×2 (09:30→09:45)
[2018-04-28] MEDS: PERCOCET 5MG/325MG TAB PO PRN ×2 (09:37→10:10)
[2018-04-28] MEDS: fentaNYL 100 MCG/2 ML INJECTION (J3010) IV PRN ×4 (09:37→09:52)
[2018-04-28] MEDS ORDERED: PERCOCET 5MG/325MG TAB PO PRN ×2 (09:45)
[2018-04-28] MEDS ORDERED: KETOROLAC 30 MG/ML VIAL (J1885) IV PRN (09:45)
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
[2018-04-28] MEDS ORDERED: MORPHINE 10 MG/ML 1ML VIAL (J2270) As Ordered ONE (09:56)
[2018-04-28] MEDS: MORPHINE 10 MG/ML 1ML VIAL (J2270) IV PRN ×4 (10:00→10:24)
[2018-04-28 13:20] VITALS: BP 134/92
== END 2018-04-28 13:30 | disposition home or self-care (01) ==
LOC: M SDC 06:02
PROVIDERS: ATTEND Surgery
DX: K43.0 Incisional hernia with obstruction, without gangrene (principal); I10 Essential (primary) hypertension; Z79.899 Other long term (current) drug therapy; F17.210 Nicotine dependence, cigarettes, uncomplicated; Z91.030 Bee allergy status
CPT/HCPCS: 49654; C1781; J0690; J1100; J1885; J2250; J2270; J2405; J2710; J2765; J3010

== ENCOUNTER 2018-05-13 18:38 | Emergency (ER) | payer MEDICARE ==
[~2018-05-13] VITALS: Ht 180.3 cm; Wt 98.2 kg
[2018-05-13] MEDS ORDERED: MORPHINE 2 MG/ML 1ML SYRINGE (J2270) IV PRN (20:00)
[2018-05-13] MEDS ORDERED: NS 1,000 ML IV ONE (20:00)
[2018-05-13] MEDS ORDERED: ONDANSETRON 4MG/2ML VIAL (J2405) IV ONE (20:00)
[2018-05-13 20:31] LABS: BASO # 0.1 10^3/uL (0.0-0.2); BASO % 0.9 % (0.0-1.0); EOS # 0.4 10^3/uL (0.0-0.50); EOS % 6.9 % (0.0-3.0); HEMATOCRIT 40.8 % (42.0-52.0); HEMOGLOBIN 13.6 g/dl (13.5-17.5); LYMPH # 1.6 10^3/uL (1.5-4.5); LYMPH % 27.7 % (24.0-44.0); MEAN CORPUSCULAR HEMOGLOBIN 32.9 pg (27.0-33.0); MEAN CORPUSCULAR HGB CONC 33.3 g/dl (32.0-36.5); MEAN CORPUSCULAR VOLUME 98.8 fl (80.0-96.0); MONO # 0.7 10^3/uL (0.0-0.8); MONO % 12.3 % (0.0-5.0); NEUTROPHILS # 2.9 10^3/uL (1.8-7.7); NEUTROPHILS % 51.7 % (36.0-66.0); PLATELET COUNT, AUTOMATED 350 10^3/uL (150-450); RED BLOOD COUNT 4.13 10^6/uL (4.30-6.10); WHITE BLOOD COUNT 5.6 10^3/uL (4.0-10.0)
--- NOTE | 2018-05-13 20:35 | REP ---
Clinical: Trauma. Fall. Technique: AP, lateral, bilateral oblique views of the left hand. Findings: Advanced chronic osteoarthritic changes at the third and fourth distal interphalangeal joints with chronic subluxation and angulation is appreciated. Underlying acute injury cannot be excluded. Mild/moderate arthritic degenerative changes are also appreciated involving the remainder of the interphalangeal joints and first metacarpophalangeal joint. Degenerative changes at the wrist including subchondral sclerosis, spurring and joint space narrowing at the first carpometacarpal joint as well as chondrocalcinosis at the radiocarpal joint. Evidence for old ulnar styloid fracture. Impression: 1. Osteoarthritic degenerative changes primarily noted at the third and fourth distal interphalangeal joints where superimposed acute subluxation or injury cannot be excluded. Correlation with mechanism of injury and point of tenderness is recommended. 2. Further osteoarthritic degenerative changes of the hand and wrist as noted above. Electronically Signed by Lawrence Kelly MD 05/13/2018 08:26 P
[2018-05-13 20:45] LABS: PROTHROMBIN TIME 13.3 SECONDS (12.1-14.4)
[2018-05-13 20:57] LABS: BLOOD UREA NITROGEN 16 MG/DL (7-18); CALCIUM LEVEL 8.7 MG/DL (8.5-10.1); CARBON DIOXIDE LEVEL 25 MEQ/L (21-32); CHLORIDE LEVEL 110 MEQ/L (98-107); CREATININE FOR GFR 1.05 MG/DL (0.70-1.30); GLOMERULAR FILTRATION RATE > 60.0 (>56); GLUCOSE, FASTING 87 MG/DL (70-100); POTASSIUM SERUM 4.5 MEQ/L (3.5-5.1); SODIUM LEVEL 143 MEQ/L (136-145)
[2018-05-13] MEDS ORDERED: ISOVUE-370 76% 100ML VIAL (Q9967) As Ordered ONE (21:00)
--- NOTE | 2018-05-13 22:16 | REPVR ---
EXAM: CT Abdomen and Pelvis With Contrast EXAM DATE/TIME: 05/13/2018 9:06 PM CLINICAL HISTORY: 53 years old, male; Injury or trauma; Fall; Initial encounter; Blunt; Generalized; Prior surgery; Surgery date: 3-7 days post-operative; Surgery type: Umbilical hernia repair; Additional info: Fall post surgical TECHNIQUE: Axial computed tomography images of the abdomen and pelvis with intravenous contrast. All CT scans at this facility use at least one of these dose optimization techniques: automated exposure control; mA and/or kV adjustment per patient size (includes targeted exams where dose is matched to clinical indication); or iterative reconstruction. Coronal and sagittal reformatted images were created and reviewed. CONTRAST: 100 ml of ISOVUE 370 administered intravenously. COMPARISON: CT ABD PELVIS W/O CONTRAST 05/13/2014 9:29 PM FINDINGS: Lower thorax: Linear stranding and groundglass at the lung bases, likely due to atelectasis and/or scarring. 4 mm left lower lobe nodular density (series 201, image 21). Elevated right hemidiaphragm. Small hiatal hernia and mild nonspecific distal esophageal wall thickening, suggesting chronic reflux/esophagitis. ABDOMEN: Liver: 6 mm low density lesion in the hepatic dome on the right, too small to characterize. Gallbladder and bile ducts: No radiodense gallstones. No biliary ductal dilatation. Pancreas: Unremarkable. Spleen: Unremarkable. Adrenals: Mild nonspecific bilateral adrenal thickening. 4 mm fat density right adrenal lesion, likely a myelolipoma. Kidneys and ureters: Mild left renal cortical scarring. 7.4 x 6.8 cm right renal cyst, similar to prior. No radiodense calculi. No hydronephrosis. Stomach and bowel: Moderate amount of retained stool in the colon. Scattered colonic diverticula without evidence of diverticulitis. No obstruction. No bowel wall thickening. No pneumatosis. Appendix: Normal. PELVIS: Bladder: Unremarkable. Reproductive: Mildly enlarged prostate. ABDOMEN and PELVIS: Intraperitoneal space: Trace ascites. No organized fluid collection. No free air. Bones/joints: No acute osseous abnormality. Osteopenia. Degenerative changes. Right hip arthroplasty in place. Right L5 pars defect. Soft tissues: Post surgical changes in the anterior abdominal wall. Fat containing supraumbilical hernias, similar to prior. Fat containing left inguinal hernia. Small right inguinal hernia, containing fat and a nonobstructed loop of small bowel. Vasculature: Mild atherosclerotic disease. No aneurysm or dissection. Lymph nodes: Small mesenteric lymph nodes, nonspecific in appearance. No pathologically enlarged lymph nodes. IMPRESSION: 1. No CT evidence of acute intra-abdominal or pelvic traumatic injury. 2. Trace nonspecific ascites. 3. 4 mm left lower lobe nodular density. For patients at low risk (minimal or absent history of smoking and of other known risk factors), no routine follow-up is indicated. For patients at high risk (history of smoking or of other known risk factors), consider optional CT at 12 months. (Amos et al., Fleischner Society, 2017) 4. Additional findings, as above. Electronically signed by: Jameel Marinelli On 05/13/2018 22:15:42 PM
[2018-05-13 22:53] VITALS: BP 133/78
--- NOTE | 2018-05-14 17:03 | ED PDOC ---
Post-Departure Follow-Up hope tian faxed formal report of ct abd/p fo rfu Floresita Castillo MD May 14, 2018 17:03
== END 2018-05-13 22:56 | disposition home or self-care (01) ==
LOC: M ED 18:38
DX: S60.222A Contusion of left hand, initial encounter (principal); S39.011A Strain of muscle, fascia and tendon of abdomen, initial encounter; W10.8XXA Fall (on) (from) other stairs and steps, initial encounter; Y92.018 Other place in single-family (private) house as the place of occurrence of the external cause; I10 Essential (primary) hypertension; Z79.899 Other long term (current) drug therapy; Z91.030 Bee allergy status; J30.89 Other allergic rhinitis
CPT/HCPCS: 73130; 74177; 80048; 85025; 85610; 96361; 96374; 96375; 99284; J2270; J2405; Q9967

== ENCOUNTER → 2019-01-09 | Outpatient (CLI) | payer MEDICARE ==
[~2019-01-09] MED LIST changes: -/DULO30CA PO; +CYMB1CAP5 PO; +LISI20TA19 PO; +NAPR-885 PO
[2019-01-09 15:12] LABS: HEMATOCRIT 50.2 % (42.0-52.0); HEMOGLOBIN 16.8 g/dl (13.5-17.5); MEAN CORPUSCULAR HEMOGLOBIN 33.6 pg (27.0-33.0); MEAN CORPUSCULAR HGB CONC 33.5 g/dl (32.0-36.5); MEAN CORPUSCULAR VOLUME 100.4 fl (80.0-96.0); PLATELET COUNT, AUTOMATED 346 10^3/uL (150-450); WHITE BLOOD COUNT 7.6 10^3/uL (4.0-10.0)
[2019-01-09 15:37] LABS: ALT/SGPT 26 U/L (12-78); BILIRUBIN,TOTAL 0.6 MG/DL (0.2-1.0); BLOOD UREA NITROGEN 23 MG/DL (7-18); CALCIUM LEVEL 10.3 MG/DL (8.5-10.1); CARBON DIOXIDE LEVEL 27 MEQ/L (21-32); CHLORIDE LEVEL 108 MEQ/L (98-107); CREATININE FOR GFR 1.23 MG/DL (0.70-1.30); GLOMERULAR FILTRATION RATE > 60.0 (>56); GLUCOSE, FASTING 121 MG/DL (70-100); POTASSIUM SERUM 4.6 MEQ/L (3.5-5.1); SODIUM LEVEL 143 MEQ/L (136-145); TOTAL PROTEIN 7.4 GM/DL (6.4-8.2)
[2019-01-09 16:02] LABS: ERYTHROCYTE SEDIMENTATION RATE 6 mm/hr (0-20)
--- NOTE | 2019-01-09 17:10 | REP ---
HISTORY: Preoperative examination due to arthritis. COMPARISON: 01/12/2017 Chronic right CP angle blunting is noted, status quo. There is a curvilinear right basilar density representing a change from the prior exam and likely representing either chronic subsegmental atelectatic change or chronic fibrosis. The lung copeland are otherwise clear and stable. The cardiomediastinal silhouette is unchanged. The heart is not enlarged. There is no significant change in the appearance of the osseous structures. IMPRESSION: Chronic findings suspected as described above. Electronically Signed by Byron Cherry DO 01/10/2019 11:29 A
--- NOTE | 2019-01-10 00:35 | ECGEPIP ---
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
== END ==
LOC: M LAB 14:15
PROVIDERS: ATTEND Orthopaedic Surgery
DX: M16.12 Unilateral primary osteoarthritis, left hip (principal)

== ENCOUNTER 2019-01-19 05:42 | Inpatient (IN) | payer MEDICARE ==
--- NOTE | 2019-01-17 15:29 | HPE ---
DATE OF ADMISSION: 01/19/2019 He arrived today for preoperative history and physical concerning his symptomatic left hip osteoarthritis. Mr. Ceja has consented for left total hip arthroplasty per Dr. Stephon Rivero. Medical optimization is pending. X-rays are consistent with advanced osteoarthritis. ALLERGIES: None known to drugs. MEDICAL PROBLEM LIST: Includes symptomatic left hip osteoarthritis, hypertension, depression, prior history of closed reduction clavicle. PAST SURGICAL HISTORY: Pertinent for right knee replacement, left knee replacement and left shoulder, and kidney stone removal. FAMILY HISTORY: Positive for heart disease, hypertension, diabetes, arthritis, hypercholesteremia. SOCIAL HISTORY: He is a current smoker, smokes every day half-pack. Rarely consumes ethanol. Denies illicit drugs. REVIEW OF SYSTEMS: Denies chest pain, shortness of breath, dyspnea on exertion, fever, chills, malaise, upper respiratory or urinary tract symptoms. CURRENT MEDICATIONS: - lidocaine 5% - lisinopril 40 mg - vitamin D 50,000 units Chest x-ray per [facility] service date 01/09 04/19: Chronic findings, specifically the right CP angle blunting. Curvilinear right basilar density representing a change from prior exam and likely representing either chronic subsegmental atelectatic change or chronic fibrosis. Lung copeland are otherwise clear and stable. The cardiomediastinal silhouette is unchanged. Heart is not enlarged, as read by Dr. Byron Cherry. EKG result showed sinus rhythm, minimal ST elevation noted mainly in the inferior leads, probably related to early repolarization. Compared to last three traces in the system, no significant changes as read by Dr. Jc Pink per [facility] service date 01/09/2019. LABORATORY DATA: Glucose at 121, that was fasting. BUN 23, GFR was greater than 60. Chloride level 108, calcium level 10.3. Mean corpuscular volume 100.4, mean corpuscular hemoglobin 33.6. PHYSICAL EXAMINATION Blood pressure 150/80, pulse 84, temperature 97.3, height 71 inches, weight 200 pounds, BMI 27.9, respiration 18. This is a pleasant well-developed, well-nourished male in no acute distress. Alert and oriented times three. Mood and affect are appropriate. He is ambulating without assistive device, favoring as noted about the right lower extremity. Left hip range of motion is limited and irritable through internal and external range of motion. Bilateral lower extremity skin is intact, benign and noninfectious looking. Bowel sounds soft, nontender times four. Chest with regular rate and rhythm. Negative murmurs, gallops or rubs. Lungs clear. Neck supple. Negative jugular venous distention (JVD) or bruits. Normocephalic. IMPRESSION: 1. Symptomatic left hip osteoarthritis. 2. The patient consented for left total hip of plenty per Dr. Stephon Rivero. 3. Medical optimization pending clearance. 4. On-call OR, 2 grams IV Kefzol in OR. 5. SCD and TEDs in OR.
[~2019-01-19] VITALS: Ht 180.3 cm; Wt 90.7 kg
[2019-01-19] MEDS ORDERED: LIDOCAINE 1% MDV 20ML VIAL SQ PRN (06:00)
[2019-01-19] MEDS ORDERED: LR 1,000 ML IV ONE (06:00)
[2019-01-19] MEDS ORDERED: ceFAZolin 2 GM/D5W 50 ML IV BAG (J0690 PER 500MG) As Ordered ONE (06:05)
[2019-01-19] MEDS ORDERED: ceFAZolin SOD 2 GM in IV 1 EA IV ONE (06:15)
[2019-01-19 06:22] LABS: INR 1.02; PROTHROMBIN TIME 13.1 SECONDS (11.8-14.0)
[2019-01-19] MEDS ORDERED: TRANEXAMIC ACID 100 MG/ML 10ML VIAL As Ordered ONE (06:54)
[2019-01-19] MEDS ORDERED: EPINEPHrine INJ 1 MG/ML 1ML AMP As Ordered ONE (06:55)
[2019-01-19] MEDS ORDERED: ceFAZolin 1GM INJ (J0690 PER 500MG) As Ordered ONE (06:55)
[2019-01-19] MEDS ORDERED: BUPIVACAINE LIPOSOME/PF 1.3% 20ML VIAL (13.3MG/ML)(EXPAREL)(C9290 PER1MG) As Ordered ONE (06:55)
[2019-01-19] MEDS ORDERED: PROPOFOL 200 MG/20 ML VIAL As Ordered ONE (07:16)
[2019-01-19] MEDS ORDERED: MIDAZOLAM INJ 2 MG/2 ML VIAL (J2250) As Ordered ONE (07:17)
[2019-01-19] MEDS ORDERED: fentaNYL 100 MCG/2 ML INJECTION (J3010) As Ordered ONE (07:17)
[2019-01-19] MEDS ORDERED: LIDOCAINE 2% INJ 100 MG/5 ML SDV (FOR ANES.) As Ordered ONE (07:19)
[2019-01-19] MEDS ORDERED: PHENYLephrine HCL 500 MCG/5 ML (100MCG/ML) SYRINGE (J2370) As Ordered ONE (08:09)
[2019-01-19] MEDS ORDERED: PHENYLEPHRINE INJ 10MG/ML VIAL (J2370) As Ordered ONE (08:16)
[2019-01-19] MEDS ORDERED: KETOROLAC 60 MG/2 ML VIAL (J1885) As Ordered ONE (08:43)
[2019-01-19] MEDS ORDERED: dexameTHASONE 4 MG/ML 1ML VIAL (J1100) As Ordered ONE (08:43)
[2019-01-19] MEDS ORDERED: ONDANSETRON 4MG/2ML VIAL (J2405) As Ordered ONE (08:43)
[2019-01-19] MEDS ORDERED: ACETAMINOPHEN 1000MG 100ML IV BTL (OFIRMEV) (J0131 PER 10MG) As Ordered ONE (08:43)
[2019-01-19] MEDS ORDERED: LR 1,000 ML IV SCH ×2 (09:30)
[2019-01-19] MEDS ORDERED: FLEET ENEMA PR PRN (09:30)
[2019-01-19] MEDS ORDERED: fentaNYL 100 MCG/2 ML INJECTION (J3010) IV PRN (09:30)
[2019-01-19] MEDS ORDERED: ONDANSETRON 4MG/2ML VIAL (J2405) IV PRN ×2 (09:30)
[2019-01-19] MEDS ORDERED: ACETAMINOPHEN TAB 650MG DOSE (2X325MG) PO PRN (09:30)
[2019-01-19] MEDS ORDERED: PERCOCET 5MG/325MG TAB PO PRN ×3 (09:30→13:45)
[2019-01-19] MEDS ORDERED: MORPHINE 4 MG/ML 1ML VIAL/SYRINGE (J2270) IV PRN ×2 (09:30)
[2019-01-19] MEDS ORDERED: METOCLOPRAMIDE INJ 10MG/2ML VIAL (J2765) IV PRN (09:30)
--- NOTE | 2019-01-19 09:53 | REP ---
Left hip: Portable exam two views. History: Postop. Findings: Portably obtained AP and lateral views of the left hip document left hip arthroplasty components in good position. Lateral skin janna and soft tissue swelling are seen. Some postoperative soft tissue emphysema is visible. Impression: Status post left hip arthroplasty. Electronically Signed by Mahendra Titus MD 01/19/2019 09:45 A
--- NOTE | 2019-01-19 11:20 | IPN ---
DATE: 01/19/2019 The patient seen and examined. He wished to have a left total hip arthroplasty. He understands the nature this and the risks of bleeding, infection, damage to nerves, vessels, persistent pain, blood clots, medical problems, among others. He wished to ahead with a ceramic head on polyethylene.
[2019-01-19 12:55] VITALS: BP 134/80
[2019-01-19 14:39] VITALS: BP 127/85
[2019-01-19] MEDS: ceFAZolin SOD 2 GM in IV 1 EA IV SCH ×2 (15:46→22:09)
[2019-01-19] MEDS: PERCOCET 5MG/325MG TAB PO PRN ×2 (15:46→20:19)
--- NOTE | 2019-01-19 16:08 | RO ---
DATE OF PROCEDURE: 01/19/2019 PREOPERATIVE DIAGNOSIS: Left hip osteoarthritis. POSTOPERATIVE DIAGNOSIS: Left hip osteoarthritis. PROCEDURE: Left total hip arthroplasty using a [employer] [place] standard size 6 stem, 54 acetabular component, 36 femoral head, +5 neck. SURGEON: Stephon Rivero MD SOLDERER: KAPIL Read ANESTHESIA: Spinal. ESTIMATED BLOOD LOSS: 200. COMPLICATIONS: None. INDICATIONS: This is a 53-year-old gentleman's who has had gradually worsening hip pain and he wished proceed with surgical treatment. DESCRIPTION OF PROCEDURE: The patient was taken to the operating room and placed in the right lateral decubitus position on the [facility] area. All areas were padded appropriately. The left hip was prepped and draped in usual sterile fashion. Time-out was performed. I then created a longitudinal incision over the lateral aspect of the hip. Sharp dissection was carried down through the subcutaneous tissue. Controlled hemostasis with cautery. I incised the fascia jessica and exposed the abductors. About the anterior 40% or so of the abductors were dissected off the femur exposing the head and neck and proximal femur. We externally rotated the femur and dislocated the hip without difficulty. The canal initiating reamer followed by the canal finding reamer and lateralizing reamer were then used on the femoral side and the neck cut was made at about a half of fingerbreadth up from the lesser trochanter. Removed the femoral head, which had severe arthritis. Directed our attention to the acetabulum. I realized I could medialize to some degree. I sequentially reamed up to a size 53 reamer. Good bleeding bone was noted. His acetabular bone was somewhat soft. The wound and cup were irrigated out carefully. I then impacted in a 54 cup and made sure it was well seated. It was in the appropriate amount of anteversion and horizontal tilt. I then impacted in the liner, which is a 54 x 36 liner, made sure it was well seated after irrigation. I then directed attention the femur. A box cutting device was then used, followed by sequential broaches up to a size 6, which had a good fit and fill. I then trialed off this a 1.5 and a 5 neck and elected to go ahead with the +5 neck. I then irrigated the canal copiously, impacted in the size 6 standard stem, which is what I had trialed, and excellent fit was noted. It was solidly seated. I then dried the taper, impacted on the femoral head +5, 36. Made sure this was well seated and then we reduced the hip. I put the hip through a range of motion as I had several times with the trial and was very pleased with the stability and extension external rotation, flexion internal rotation, and he had minimal about 1 mm of shuck in full extension. I then irrigated the wound copiously, placed the Exparel and tranexamic acid (TXA) in the deep wound. The deep layer was closed #1 Vicryl suture. I then irrigated again, closed the medius with #1 Vicryl suture obtaining an excellent closure. I then irrigated, closed the fascia jessica with #1 Vicryl suture in running Stratafix in both directions. Subcu was closed with #2-0 and the skin with janna. Sterile dressing was applied, and he was taken to recovery room in stable condition. There were no known complications. The plan will be routine postop. The assistant hairstylist was instrumental in holding retractors and assisting in reducing and dislocating the hip and assisting in wound closure.
[2019-01-19] MEDS ORDERED: NAPROXEN 250 MG TAB PO PRN (17:00)
[2019-01-19] MEDS ORDERED: zolPIDEM TARTRATE 5 MG TAB PO PRN (17:00)
--- NOTE | 2019-01-19 17:01 | CR.PDOC ---
General Date of Consultation: Jan 19, 2019 Referring Provider: SALTY NICHOLAS DO Consultation REASON FOR CONSULTATION/CHIEF COMPLAINT: Physical evaluation after surgery HISTORY OF PRESENT ILLNESS: Patient is 53 years old male with past medical history of erosive osteoarthritis, hypertension, nephrolithiasis presenting hospital for left hip replacement which was done today. Patient tolerated surgery well. When I saw patient in the room he was resting comfortably on the bed. Patient denies fever, chills, shortness of breath, palpitations, nausea, vomiti ng, diarrhea or dysuria ALLERGIES: Please see below. HOME MEDICATIONS: Please see below. PAST MEDICAL HISTORY: Erosive osteoarthritis, hypertension, insomnia, depression, anxiety, nephrolithiasis PAST SURGICAL HISTORY: Bilateral knee replacement, bilateral hip replacement Multiple hands surgery FAMILY HISTORY: Father: from heart attack Mother: Coronary artery diseases SOCIAL HISTORY: Tobacco use: Active smoker around 1 pack a day ETOH: Occasional IV drug use: Denies REVIEW OF SYSTEMS: 10 point review of system is negative except as listed above PHYSICAL EXAMINATION: VITAL SIGNS: Please see below. GENERAL APPEARANCE: NAD HEENT: PERRLA, EOMI RESPIRATORY: Clear to auscultation CARDIOVASCULAR: S1-S2, no gallops, no rubs ABDOMEN: Nontender, nondistended EXTREMITIES: No swelling, no cyanosis, multiple deformities of the distal phalanx NEUROLOGICAL: Nonfocal, no nuchal rigidity, moves 4 limbs LABORATORY DATA: Please see below. ASSESSMENT/PLAN: Patient is 53 years old male with past medical history of erosive osteoarthritis, hypertension, nephrolithiasis presenting hospital for left hip replacement which was done today. Patient tolerated surgery well. Hypertension Blood pressures under control Continue home medications Status post left hip replacement Pain management Anticoagulation per ortho Insomnia Continue zolpidem Vital Signs/I&O Vital Signs Date Time Temp Pulse Resp B/P (MAP) Pulse Ox O2 Delivery O2 Flow Rate FiO2 01/19/19 16:16 18 01/19/19 12:55 97.6 64 134/80 (98) 94 Laboratory Data Labs 24H Laboratory Tests 2 01/19/19 06:00: Prothrombin Time 13.1, Prothromb Time International Ratio 1.02 Allergies Coded Allergies: HAY FEVER (Verified Allergy, Unknown, 01/08/19) bee venom protein (honey bee) (Verified Allergy, Unknown, HIVES, SWELLING,BREATHING DIFFICULTIES, 01/08/19) Home Medications Scheduled Ergocalciferol (Vitamin D2) (Vitamin D2) 50,000 Unit Cap, 50,000 UNIT PO QMONTH, (Reported) Gabapentin (Gabapentin) 300 Mg Cap, 600 MG PO TID, (Reported) Lisinopril/Hydrochlorothiazide (Lisinopril-Hctz 20-12.5 mg Tab) 1 Each Tablet, 1 TAB PO DAILY, (Reported) Scheduled PRN Naproxen (Naproxen) 500 Mg Tablet, 500 MG PO BID PRN for PAIN, (Reported) Zolpidem Tartrate (Ambien) 5 Mg Tab, 5 MG PO PRN PRN for SLEEP, (Reported) SALTY NICHOLAS DO Jan 19, 2019 17:01
[2019-01-19 18:11] VITALS: BP 143/89
[2019-01-19 20:00] VITALS: BP 137/87
[2019-01-19] MEDS: GABAPENTIN 300 MG CAP PO SCH (20:18)
[2019-01-20 02:11] VITALS: BP 113/64
[2019-01-20] MEDS: PERCOCET 5MG/325MG TAB PO PRN ×2 (06:09→12:08)
[2019-01-20 06:15] VITALS: BP 127/82
[2019-01-20] MEDS ORDERED: PERC5TAB12 PO (06:31)
[2019-01-20] MEDS ORDERED: XARE10TA PO (06:31)
[2019-01-20 06:48] LABS: HEMATOCRIT 38.2 % (42.0-52.0); HEMOGLOBIN 12.9 g/dl (13.5-17.5); MEAN CORPUSCULAR HEMOGLOBIN 33.6 pg (27.0-33.0); MEAN CORPUSCULAR HGB CONC 33.8 g/dl (32.0-36.5); MEAN CORPUSCULAR VOLUME 99.5 fl (80.0-96.0); PLATELET COUNT, AUTOMATED 257 10^3/uL (150-450); RED BLOOD COUNT 3.84 10^6/uL (4.30-6.10); WHITE BLOOD COUNT 14.5 10^3/uL (4.0-10.0)
[2019-01-20 06:53] LABS: PROTHROMBIN TIME 12.9 SECONDS (11.8-14.0)
[2019-01-20] MEDS: GABAPENTIN 300 MG CAP PO SCH (07:53)
[2019-01-20] MEDS ORDERED: VITAMIN D 50,000 UNITS CAPSULE (ERGOCALCIFEROL 1.25MG) PO SCH (09:00)
[2019-01-20] MEDS ORDERED: MIRALAX *UNIT DOSE* 17GM PACKET PO SCH (09:00)
[2019-01-20] MEDS ORDERED: hydroCHLOROthiazide 12.5 MG CAPSULE PO SCH (09:00)
[2019-01-20] MEDS ORDERED: MOM 30ML SUSPENSION UDC PO SCH (09:00)
[2019-01-20] MEDS ORDERED: LISINOPRIL 20 MG TAB PO SCH (09:00)
--- NOTE | 2019-01-20 16:51 | IPNPDOC ---
Text Note Date of Service The patient was seen on 01/20/19. NOTE Subjective: Patient tolerates procedure well. No any acute events overnight. Patient denies fever, chills, shortness of breath, nausea, vomiting, diarrhea or dysuria PHYSICAL EXAMINATION: VITAL SIGNS: Please see below. GENERAL APPEARANCE: NAD HEENT: PERRLA, EOMI RESPIRATORY: Clear to auscultation CARDIOVASCULAR: S1-S2, no gallops, no rubs ABDOMEN: Nontender, nondistended EXTREMITIES: No swelling, no cyanosis, multiple deformities of the distal phalanx NEUROLOGICAL: Nonfocal, no nuchal rigidity, moves 4 limbs ASSESSMENT/PLAN: Patient is 53 years old male with past medical history of erosive osteoarthritis, hypertension, nephrolithiasis presenting hospital for left hip replacement which was done today. Patient tolerated surgery well. Hypertension Blood pressures under control Continue home medications Status post left hip replacement Pain management Anticoagulation per ortho Insomnia Continue zolpidem PT/OT VS,Fishbone, I+O VS, Fishbone, I+O Laboratory Tests 01/20/19 06:27 Red Blood Count 3.84 L, Mean Corpuscular Volume 99.5 H, Mean Corpuscular Hemoglobin 33.6 H, Mean Corpuscular Hemoglobin Concent 33.8, Red Cell Distribution Width 13.4 Vital Signs Date Time Temp Pulse Resp B/P (MAP) Pulse Ox O2 Delivery O2 Flow Rate FiO2 01/20/19 12:38 18 01/20/19 06:15 97.9 85 127/82 (97) 93 I&O- Last 24 Hours up to 6 AM 01/20/19 06:00 Intake Total 3105 ml Output Total 1950 ml Balance 1155 ml SALTY NICHOLAS DO Jan 20, 2019 16:51
[2019-01-20] MEDS ORDERED: RIVAROXABAN 10 MG TAB (XARELTO) PO SCH (18:00)
== END 2019-01-20 13:20 | disposition home health service (06) | DRG 470 ==
LOC: M OR 05:42 → M MS5PR 12:45
PROVIDERS: ADMIT Orthopaedic Surgery; ATTEND Orthopaedic Surgery
PROC: 0SRB04Z Replacement of Left Hip Joint with Ceramic on Polyethylene Synthetic Substitute, Open Approach (ICD-10-PCS; principal; 2019-01-19 07:30)
DX: M16.12 Unilateral primary osteoarthritis, left hip (principal); I10 Essential (primary) hypertension; F32.9 Major depressive disorder, single episode, unspecified; J30.9 Allergic rhinitis, unspecified; G47.00 Insomnia, unspecified; F41.9 Anxiety disorder, unspecified; Z96.653 Presence of artificial knee joint, bilateral; Z87.442 Personal history of urinary calculi; F17.210 Nicotine dependence, cigarettes, uncomplicated; Z79.899 Other long term (current) drug therapy; Z91.030 Bee allergy status

== ENCOUNTER 2019-03-02 03:39 | Emergency (ER) | payer MEDICARE ==
[~2019-03-02] VITALS: Ht 180.3 cm; Wt 95.5 kg
[~2019-03-02 03:39] MED LIST changes: +XARE10TA PO
[2019-03-02 04:30] LABS: BASO # 0.1 10^3/uL (0.0-0.2); BASO % 0.5 % (0.0-1.0); EOS % 0.2 % (0.0-3.0); HEMOGLOBIN 15.4 g/dl (13.5-17.5); LYMPH % 16.5 % (24.0-44.0); MEAN CORPUSCULAR HEMOGLOBIN 32.6 pg (27.0-33.0); MEAN CORPUSCULAR HGB CONC 32.8 g/dl (32.0-36.5); MEAN CORPUSCULAR VOLUME 99.6 fl (80.0-96.0); MONO # 0.8 10^3/uL (0.0-0.8); MONO % 6.8 % (0.0-5.0); NEUTROPHILS # 9.1 10^3/uL (1.5-8.5); NEUTROPHILS % 75.5 % (36.0-66.0); PLATELET COUNT, AUTOMATED 339 10^3/uL (150-450); RED BLOOD COUNT 4.72 10^6/uL (4.30-6.10); WHITE BLOOD COUNT 12.1 10^3/uL (4.0-10.0)
[2019-03-02 04:42] LABS: INR 1.13; PROTHROMBIN TIME 14.2 SECONDS (11.8-14.0)
[2019-03-02 04:52] LABS: CALCIUM LEVEL 9.8 MG/DL (8.5-10.1); CREATININE FOR GFR 1.45 MG/DL (0.70-1.30); GLOMERULAR FILTRATION RATE 53.8 (>56); POTASSIUM SERUM 4.7 MEQ/L (3.5-5.1)
[2019-03-02] MEDS ORDERED: ISOVUE-370 76% 100ML VIAL (Q9967) As Ordered ONE (05:05)
--- NOTE | 2019-03-02 05:57 | REPVR ---
PROCEDURE INFORMATION: Exam: CT Angiography Abdomen and Pelvis With Contrast Exam date and time: 03/02/2019 5:14 AM Age: 53 years old Clinical history: Pain; Other: Leg; Additional info: Cold pain left TECHNIQUE: Imaging protocol: Computed tomographic angiography of the abdomen and pelvis with intravenous contrast material. 3D rendering: MIP and/or 3D reconstructed images were created and reviewed. COMPARISON: No relevant prior studies available. FINDINGS: Lungs: There are left basilar atelectatic changes. Aorta: Noncalcified mural plaque seen in the supra-and infrarenal abdominal aorta resulting in less than 30% stenosis. Celiac trunk and mesenteric arteries: The SMA, celiac trunk as well as the renal arteries are patent. There is less than 50% stenosis of the accessory right renal artery. The SALINAS is patent however with atherosclerotic plaque possibly resulting in high grade stenosis at the origin. Renal arteries: See Celiac Trunk And Mesenteric Arteries Finding. Right iliac arteries: The right internal iliac artery is widely patent. Left iliac arteries: The left internal iliac artery is widely patent. The left external iliac artery is widely patent. Left femoral/popliteal arteries: There is noncalcified plaque in the left common femoral artery resulting in less than 30% stenosis. Liver: No mass. Gallbladder and bile ducts: Unremarkable. No calcified stones. No ductal dilation. Pancreas: Unremarkable. No mass. No ductal dilation. Spleen: Unremarkable. No splenomegaly. Adrenals: There is diffuse thickening of the adrenal glands. Kidneys and ureters: Unremarkable. No solid mass. No hydronephrosis. Stomach and bowel: There is descending colon diverticulosis. Appendix: No evidence of appendicitis. Intraperitoneal space: Unremarkable. No free air. No significant fluid collection. Lymph nodes: Unremarkable. No enlarged lymph nodes. Bladder: Unremarkable. No mass. Reproductive: Unremarkable as visualized. Bones/joints: The right common iliac and proximal external iliac are widely patent. Soft tissues: There is a small left inguinal fat containing hernia. IMPRESSION: 1. Calcified plaques in the abdominal aorta and left AYANA resulting in less than 30% stenosis. 2. Noncalcified plaque at the origin of patent SALINAS however resulting in severe stenosis at least 70-90%. 3. Descending colon diverticulosis. 4. Right side of the abdomen including the right hepatic lobe, gallbladder, right kidney as well as the right colon and some of the small bowel loops are not included on this exam. PROCEDURE INFORMATION: Exam: CTA Left Lower Extremity With Contrast Exam date and time: 03/02/2019 5:14 AM Age: 53 years old Clinical history: Pain; Other: Leg; Additional info: Cold pain left TECHNIQUE: Imaging protocol: Computed tomographic angiography of the Left lower extremity with intravenous contrast. 3D rendering: MIP reconstructed images were created and reviewed. MIP and/or 3D reconstructed images were created and reviewed. Radiation optimization: All CT scans at this facility use at least one of these dose optimization techniques: automated exposure control; mA and/or kV adjustment per patient size (includes targeted exams where dose is matched to clinical indication); or iterative reconstruction. Contrast material: ISOVUE 370; Contrast volume: 100 ml; Contrast route: IV; COMPARISON: No relevant prior studies available. FINDINGS: Left femoral/popliteal arteries: There is a noncalcified thrombus in the left common femoral artery extending to the bifurcation at the origin of the deep femoral and superficial femoral arteries. The left deep femoral artery and its muscular branches are patent. The left superficial femoral artery is widely patent. Evaluation of the popliteal artery is limited due to streak artifacts from left knee prosthesis however filling defects seen in the left popliteal artery. The distal left popliteal artery is patent. The left HARMONY is patent and then occludes in its distal third with no flow seen in the dorsal artery. Left infrapopliteal arteries: The left TP trunk is widely patent. The left posterior tibial artery is widely patent with flow seen to the level of the hindfoot. No flow seen in the plantar artery. Other arteries: The proximal peroneal artery is patent then occludes throughout its distal half. Bones/joints: A prosthesis is seen and appears grossly intact. There is a linear lucency across the anterior cortex best seen on axial image 168 Soft tissues: Unremarkable. IMPRESSION: 1. Large left CURATOR [employer]USCRIPTS thrombus with some flow seen extending to the bifurcation at the origin of the left deep and superficial femoral arteries in addition to clot in the left popliteal artery evaluation of which is limited due to left knee prosthesis however there is apparent short segmental occlusion followed by occluded distal left HARMONY and peroneal artery with single vessel flow to the ankle via the X RAY EXAMINER OF AIRCRAFT which is occluded at the level of the hindfoot with no flow in the plantar artery. Essentially no flow seen in the foot via the dorsal or plantar artery. 2. Left hip and knee prosthesis. 3. Apparent linear defect at the anterior and posterior cortex of the left femoral neck suspicious for fracture. Electronically signed by: Maurice Rome On 03/02/2019 05:57:03 AM
[2019-03-02] MEDS ORDERED: HEPARIN DRIP 25,000 UNITS in IV 1 EA IV SCH (06:00)
[2019-03-02] MEDS ORDERED: HEPARIN SOD (PORCINE) 5000 UNITS/ML VIAL IV ONE (06:00)
[2019-03-02] MEDS ORDERED: MORPHINE 4 MG/ML 1ML VIAL/SYRINGE (J2270) IV ONE (06:15)
[2019-03-02 07:10] VITALS: BP 110/63
== END 2019-03-02 07:15 | disposition short-term general hospital (02) ==
LOC: M ED 03:39
DX: I74.3 Embolism and thrombosis of arteries of the lower extremities (principal); I10 Essential (primary) hypertension; F33.9 Major depressive disorder, recurrent, unspecified; Z79.899 Other long term (current) drug therapy; Z91.030 Bee allergy status; J30.89 Other allergic rhinitis; F17.210 Nicotine dependence, cigarettes, uncomplicated
CPT/HCPCS: 73706; 80048; 85025; 85610; 85730; 96374; 96375; 99284; J2270; Q9967

== ENCOUNTER 2019-03-09 14:27 | Emergency (ER) | payer MEDICARE ==
[~2019-03-09] VITALS: Ht 180.3 cm; Wt 93.2 kg
[2019-03-09] MEDS ORDERED: MORPHINE 4 MG/ML 1ML VIAL/SYRINGE (J2270) IV ONE (15:30)
[2019-03-09] MEDS ORDERED: OXYC1TAB23 PO (15:50)
[2019-03-09] MEDS ORDERED: XARE10TA PO (15:50)
[2019-03-09] MEDS ORDERED: LISI20TA20 PO (15:50)
--- NOTE | 2019-03-09 16:04 | REP ---
Clinical: Trauma. Evaluate for fracture. Technique: Single view of the pelvis with neutral and frog lateral views of the left hip. Findings: Evidence of prior bilateral hip replacement. No acute fracture or dislocation. Surrounding soft tissues grossly normal. Impression: No acute fracture or dislocation. Electronically Signed by Lawrence Kelly MD 03/09/2019 03:56 P
[2019-03-09 16:08] LABS: BASO # 0.1 10^3/uL (0.0-0.2); BASO % 0.5 % (0.0-1.0); EOS # 0.3 10^3/uL (0.0-0.5); EOS % 3.1 % (0.0-3.0); HEMATOCRIT 37.8 % (42.0-52.0); HEMOGLOBIN 12.2 g/dl (13.5-17.5); LYMPH # 1.9 10^3/uL (1.5-5.0); LYMPH % 18.4 % (24.0-44.0); MEAN CORPUSCULAR HGB CONC 32.3 g/dl (32.0-36.5); MEAN CORPUSCULAR VOLUME 102.2 fl (80.0-96.0); MONO % 9.5 % (0.0-5.0); NEUTROPHILS # 7.1 10^3/uL (1.5-8.5); NEUTROPHILS % 67.6 % (36.0-66.0); PLATELET COUNT, AUTOMATED 348 10^3/uL (150-450); WHITE BLOOD COUNT 10.5 10^3/uL (4.0-10.0)
--- NOTE | 2019-03-09 16:10 | REP ---
Clinical: Trauma. Fall. Technique: AP and frog lateral views of the femur (in conjunction with left hip series). Findings: Evidence for left hip and left knee replacement. No acute fracture or dislocation. Surrounding soft tissues are unremarkable. Impression: No acute fracture or dislocation. Electronically Signed by Lawrence Kelly MD 03/09/2019 04:02 P
[2019-03-09 16:27] LABS: INR 1.27; PROTHROMBIN TIME 15.6 SECONDS (11.8-14.0)
[2019-03-09 16:28] LABS: PARTIAL THROMBOPLASTIN TIME 31.4 SECONDS (25.0-38.4)
[2019-03-09 16:30] LABS: ALBUMIN 3.8 GM/DL (3.2-5.2); ALT/SGPT 35 U/L (12-78); BILIRUBIN,DIRECT 0.2 MG/DL (0.0-0.2); BILIRUBIN,TOTAL 0.7 MG/DL (0.2-1.0); BLOOD UREA NITROGEN 24 MG/DL (7-18); CALCIUM LEVEL 9.5 MG/DL (8.5-10.1); CARBON DIOXIDE LEVEL 24 MEQ/L (21-32); CHLORIDE LEVEL 107 MEQ/L (98-107); CPK CREATINE PHOSPHOKINASE 160 U/L (39-308); GLOMERULAR FILTRATION RATE > 60.0 (>56); GLUCOSE, FASTING 95 MG/DL (70-100); POTASSIUM SERUM 4.7 MEQ/L (3.5-5.1); SODIUM LEVEL 137 MEQ/L (136-145); TOTAL PROTEIN 7.1 GM/DL (6.4-8.2)
--- NOTE | 2019-03-09 16:46 | REP ---
Clinical: Left lower extremity pain and swelling . Technique: Fuller scale and color Doppler evaluation using linear high frequency transducer. Findings: Ultrasound examination of the left lower extremity deep venous structures from the common femoral vein to the popliteal vein demonstrates normal compressibility flow and wave patterns in response to respiration and augmentation. There is no evidence for deep venous thrombosis. Impression: No evidence for deep venous thrombosis. Electronically Signed by Lawrence Kelly MD 03/09/2019 04:37 P
[2019-03-09 18:01] VITALS: BP 119/74
== END 2019-03-09 18:02 | disposition home or self-care (01) ==
LOC: M ED 14:27
DX: M79.605 Pain in left leg (principal); E11.9 Type 2 diabetes mellitus without complications; I10 Essential (primary) hypertension; M19.90 Unspecified osteoarthritis, unspecified site; E78.9 Disorder of lipoprotein metabolism, unspecified; Z79.899 Other long term (current) drug therapy; Z79.01 Long term (current) use of anticoagulants; J30.89 Other allergic rhinitis; Z91.030 Bee allergy status; F17.210 Nicotine dependence, cigarettes, uncomplicated
CPT/HCPCS: 73502; 73552; 80048; 80076; 82550; 85025; 85610; 85730; 93971; 96374; 99284; J2270

== ENCOUNTER 2019-03-27 20:35 | Emergency (ER) | payer MEDICARE ==
[~2019-03-27] VITALS: Ht 180.3 cm; Wt 95.5 kg
[2019-03-27 20:35] VITALS: BP 152/82
[~2019-03-27 20:35] MED LIST changes: +LISI20TA20 PO; +OXYC1TAB23 PO
[2019-03-27] MEDS ORDERED: CYCL10TA PO (20:41)
[2019-03-27] MEDS ORDERED: ROBA750T4 PO (21:27)
[2019-03-27] MEDS ORDERED: METHOCARBAMOL 750 MG TAB PO ONE (21:30)
--- NOTE | 2019-03-28 08:11 | ECGEPIP ---
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 Order Number: [id number] Reading MD: Marisa Goldsmith Measurements Intervals [place] Rate: 98 P: -24 ME: 150 QRS: 31 QRSD: 84 T: 46 QT: 323 QTc: 414 Interpretive Statements SINUS RHYTHM EARLY REPOLARIZATION SIMILAR 01/09/19 Electronically Signed on 03-28-2019 8:11:30 EST by Marisa Goldsmith
== END 2019-03-27 21:34 | disposition home or self-care (01) ==
LOC: M ED 20:35
DX: M43.6 Torticollis (principal); Z86.718 Personal history of other venous thrombosis and embolism; Z79.899 Other long term (current) drug therapy; Z79.01 Long term (current) use of anticoagulants; Z91.030 Bee allergy status; J30.89 Other allergic rhinitis; F17.210 Nicotine dependence, cigarettes, uncomplicated

== ENCOUNTER 2019-06-19 01:44 | Inpatient (IN) | payer MEDICARE ==
[2019-06-19] VITALS (8 sets, daily range): BP systolic 102–139; BP diastolic 62–85
[~2019-06-19] VITALS: Ht 177.8 cm; Wt 99.0 kg
[~2019-06-19 01:44] MED LIST changes: +CYCL10TA PO; +ROBA750T4 PO
[2019-06-19 02:05] LABS: BASO # 0.1 10^3/uL (0.0-0.2); BASO % 0.5 % (0.0-1.0); EOS # 0.1 10^3/uL (0.0-0.5); EOS % 0.9 % (0.0-3.0); HEMATOCRIT 47.4 % (42.0-52.0); HEMOGLOBIN 14.9 g/dl (13.5-17.5); LYMPH # 1.6 10^3/uL (1.5-5.0); LYMPH % 15.1 % (24.0-44.0); MEAN CORPUSCULAR HEMOGLOBIN 30.6 pg (27.0-33.0); MEAN CORPUSCULAR HGB CONC 31.4 g/dl (32.0-36.5); MEAN CORPUSCULAR VOLUME 97.3 fl (80.0-96.0); MONO # 0.5 10^3/uL (0.0-0.8); MONO % 4.4 % (0.0-5.0); NEUTROPHILS # 8.6 10^3/uL (1.5-8.5); NEUTROPHILS % 78.7 % (36.0-66.0); PLATELET COUNT, AUTOMATED 284 10^3/uL (150-450); RED BLOOD COUNT 4.87 10^6/uL (4.30-6.10); WHITE BLOOD COUNT 10.9 10^3/uL (4.0-10.0)
[2019-06-19] MEDS ORDERED: XARE20TA (02:12)
[2019-06-19] MEDS ORDERED: FUROSEMIDE 100 MG/10 ML VIAL (J1940) IV ONE (02:15)
[2019-06-19] MEDS ORDERED: dexameTHASONE 20 MG/5 ML VIAL (J1100) IV ONE (02:15)
[2019-06-19 02:16] LABS: INR 1.55; PARTIAL THROMBOPLASTIN TIME 31.8 SECONDS (25.0-38.4); PROTHROMBIN TIME 18.4 SECONDS (11.8-14.0)
[2019-06-19] MEDS: IPRATROPIUM 0.5MG/ALBUTEROL 2.5MG INH SOL UD 3ML (DUONEB)(J7620) NEB SCH ×3 (02:22→09:28)
[2019-06-19 02:40] LABS: ABG HCO3 16.8 MEQ/L (22.0-26.0); ABG O2 SATURATION 92.9 % (95.0-99.0); ABG PARTIAL PRESSURE CO2 29.6 mmHg (35.0-45.0); ABG PARTIAL PRESSURE O2 66.7 mmHg (75.0-100.0); ABG STANDARD HCO3 18.8 MEQ/L (22.0-26.0); ABG TOTAL CO2 17.8 MEQ/L (22.0-29.0); ABG pH (ARTERIAL) 7.373 UNITS (7.350-7.450)
[2019-06-19 02:46] LABS: BLOOD UREA NITROGEN 35 MG/DL (7-18); CALCIUM LEVEL 9.4 MG/DL (8.5-10.1); CARBON DIOXIDE LEVEL 25 MEQ/L (21-32); CHLORIDE LEVEL 109 MEQ/L (98-107); CK-MB VALUE MASS 65.8 NG/ML (<3.6); CPK CREATINE PHOSPHOKINASE 3818 U/L (39-308); CREATININE FOR GFR 2.37 MG/DL (0.70-1.30); GLOMERULAR FILTRATION RATE 30.4 (>56); GLUCOSE, FASTING 132 MG/DL (70-100); MB/CK RELATIVE INDEX 1.72 (< OR =4); POTASSIUM SERUM 5.3 MEQ/L (3.5-5.1); SODIUM LEVEL 140 MEQ/L (136-145); TROPONIN I < 0.02 NG/ML (< 0.10)
[2019-06-19 03:13] LABS: AMPHETAMINES LEVEL URINE POSITIVE (NEGATIVE); BARBITURATES URINE NEGATIVE (NEGATIVE); BENZODIAZEPINES URINE NEGATIVE (NEGATIVE); CANNABINOIDS URINE NEGATIVE (NEGATIVE); COCAINE METABOLITE URINE NEGATIVE (NEGATIVE); METHADONE URINE NEGATIVE (NEGATIVE); OPIATES URINE POSITIVE (NEGATIVE); PHENCYCLIDINE URINE NEGATIVE (NEGATIVE)
[2019-06-19] MEDS ORDERED: NS 1,000 ML IV ONE ×4 (03:15→13:00)
--- NOTE | 2019-06-19 03:30 | IPNPDOC ---
Text Note Date of Service The patient was seen on 06/19/19. NOTE TIME OF SERVICE 545AM is a54 yr old M w a PMH of HTN, Dyslipidemia. L fem thrombus who presented w AMS 2/2 drug OD; he is more alert now. He will be admitted for: 1 SIRS w lactic acidosis possibly 2/2 drug use f/u UA, respiratory panel and final chest x-ray report 2 Hypoxia possibly 2/2 aspiration pneumonitis ABG reviewed c/w O2, f/u xray report and resp panel 3 Hyperkalemia 2/2 DURGA IVF / f/u ulytes and renal US / f/u repeat K 4 Rhabdo 2/2 Drug use IVF / trend CPK / f/u ETHO / CIWA protocol / fall and seizure precautions / will ask staff to put him on camview 5 AMS 2/2 drug OD resolved. Rest per 's note VS,Fishbone, I+O VS, Fishbone, I+O Laboratory Tests 06/19/19 01:56 Vital Signs Date Time Temp Pulse Resp B/P (MAP) Pulse Ox O2 Delivery O2 Flow Rate FiO2 06/19/19 03:16 119/70 (86) 06/19/19 03:14 109 20 98 Non-Rebreather 10.0 06/19/19 01:59 99.1 KY OLIVIER MD Jun 19, 2019 03:30
[2019-06-19] MEDS ORDERED: SOD POLYSTYRENE SULFONATE SUSP 15 GM/60 ML UD PO ONE (03:45)
[2019-06-19] MEDS ORDERED: DICL1GEL3 TOP (04:08)
[2019-06-19] MEDS ORDERED: CYCL10TA PO (04:08)
[2019-06-19] MEDS ORDERED: OXYC10TA12 PO (04:08)
[2019-06-19] MEDS ORDERED: XARE20TA PO (04:08)
[2019-06-19] MEDS ORDERED: PROAAER10 INH (04:08)
[2019-06-19] MEDS ORDERED: VITA50005 PO (04:08)
[2019-06-19] MEDS ORDERED: ALBUTEROL 90 MCG/ACT 8GM HFA INHALER INH PRN (04:15)
--- NOTE | 2019-06-19 04:55 | HPEPDOC ---
[facility] Medical History & Physical Date of Admission Jun 19, 2019 Date of Service: Jun 19, 2019 Attending Physician: KY OLIVIER MD History and Physical CHIEF COMPLAINT: Cocaine overdose HISTORY OF PRESENT ILLNESS: Patient is a 54-year-old male who presents with emergency department via EMS status post Narcan administration after he was found unresponsive in his home following intranasal heroine use at approximately 2300 on 06/18/19. 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 Patient states that this evening, he snorted an undetermined amount of cocaine in an attempt to help him relax, focus, and assist with his chronic pain. He does not use recreational drugs. He does take opioid medications pain. He denies any intent to harm himself. He does not have any history of suicide attempts or overdoses. Prior to his heroine use this evening, patient reports being in his usual state of health. Upon arrival to the emergency department, patient was found to be afebrile, normotensive with a pulse ox of 93%. Patient was placed on 10 L of oxygen via nonrebreathing mask. EKG did not show any arrhythmia or concerning signs of i schemia. Further evaluation demonstrated a mild leukocytosis of 10.9 with macrocytosis of 97.3 MCV. H/H of 14.9/47.7. INR of 1.5. Potassium of 5.3. BUN/Cr of 35/2.37. Baseline creatinine of 1.0. Lactic acid of 3.6. CK of 3,818. Tox screen was positive for opiates and amphetamines. Patient's rhabdo/DURGA was treated with a 1 L saline bolus. Patient was given albuterol nebulizers, dexamethasone for his hypoxia which subsequently improved significantly prior to evaluation. REVIEW OF SYSTEMS: CONSTITUTIONAL: Patient denies any recent fevers, chills, night sweats, generalized fatigue or changes in weight HEENT: Denies any headache, recent changes in vision, photophobia, rhinorrhea or nasal congestion, earache or ear pain, decreased hearing, sore throat or difficulty swallowing. CARDIOVASCULAR: Denies any chest pain, palpitations RESPIRATORY: Denies any shortness of breath, recent cough or respiratory illness. No history of orthopnea or sleep apnea GASTROINTESTINAL: No reflux, abdominal pain, diarrhea or constipation, black or tarry stools GENITOURINARY: Reports a history of feeling of incomplete voids, otherwise denies dysuria or hematuria SKIN: Denies any rashes or new lesions MUSCULOSKELETAL: Patient does have a number of chronic MSK complaints including bilateral knee replacements. He reports that his right knee is currently bothering him when he flexes. Patient also carries a history of significant left shoulder pain, low back pain, cervical pain. NEUROLOGICAL: Denies any confusion, does not remember hitting his head. Denies any tongue or cheek bites. No history of migraines. No history of peripheral neuropathy. Denies being weak in any of his extremities. PSYCHIATRIC: Patient denies any depression. Reports some work-related anxiety. Denies any suicidal ideation or intent. HEMATOLOGIC/LYMPHATIC: Patient carries a history of left femoral artery occlusion. Per patient, he has seen hematology in the recent past with a negative workup. PAST MEDICAL HISTORY: Hypertension Hypercholesterolemia Osteoarthritis Left femoral artery thrombosis, status post angioplasty, on Xarelto PAST SURGICAL HISTORY: Exploratory laparotomy, 1986 Right hand fracture, 1990 Inguinal hernia repair, 1993 Clavicular fracture, 1995 Kidney stone removal 1997, 1998 Right knee replacement Left knee replacement Left shoulder replacement SOCIAL HISTORY: Marital status: , 9 years Resides in: Patient lives alone in his own home. No birds cancer dogs. Travel: Patient denies any recent travel outside the immediate area. Tobacco use: Smokes approximately one pack per day, cigarettes ETOH: Reports occasional alcohol use, none prior to presentation. Illicit drug use: Admits to using marijuana recreationally, no prior history of cocaine use IV drug use: Patient denies IV heroin use FAMILY HISTORY: Father: , age 64, heart attack Mother: Alive, healthy Siblings: 2 brothers, 2 sisters, no known medical problems Children: 2 sons, healthy Unexpected deaths due to medical reasons: No family history of breast, colon or prostate cancer ALLERGIES: Patient reports anaphylaxis to honeybee venom HOME MEDICATIONS: Please see below. PHYSICAL EXAMINATION: VITAL SIGNS: Temperature 99.1, pulse 109, respiratory rate 20, blood pressure 119/70 (86), pulse oximetry 98 % 10 L via nonrebreather. GENERAL APPEARANCE: Patient was interviewed and examined in the emergency department. Patient was found to be resting comfortably on his stretcher. He is alert and oriented 3. He does appear somewhat anxious. He is able to answer questions regarding his medical history and the events leading to his presentation appropriately. Non-diaphoretic though patient does appear to have rigors. HEENT: Normocephalic, atraumatic. His pupils are equal, approximately 0.3mm in diameter, reactive to light bilaterally. EOMI. Sclera are nonicteric, noninjected. Nasal turbinates are pink and moist. Fair oral hygiene. Mucous membranes are moist. No posterior erythema or tonsillar swelling/exudates CARDIOVASCULAR: Tachycardic on examination, regular rhythm with normal S1 and S2. No murmurs LUNGS: Crackles noted in the right base posteriorly. Patient was otherwise clear to auscultation with good air movement without discernible wheezing or rhonchi. CHEST: Surgical scar noted over her left shoulder. Nontender to palpation ABDOMEN: Soft, nontender, nondistended MUSCULOSKELETAL: Patient does have right knee pain with extreme flexion. No effusions appreciated. Hips and shoulders are stable. No point tenderness along see, T, L-spine. EXTREMITIES: No lower extremity swelling or edema. Posterior tibial and radial pulses are 2+. Capillary refill less than 2 seconds. R Hand s/p saw injury in early 90s. NEUROLOGICAL: Cranial nerves III through XII are intact. Strength in upper and lower extremities is 5 out of 5, myotomes are intact. Sensation is equal bilaterally. Symmetric soft palate elevation and tongue protrusion. PSYCHIATRIC: Mood and affect are appropriate given patient's current medical condition. LABORATORY DATA: See below. IMAGING: Chest x-ray (06/19/2019): Pending official radiologic read. Chest x-ray reviewed. Suspicion of aspiration pneumonitis, particularly on the right. MICROBIOLOGY: Please see below. ASSESSMENT: Patient is a 54-year-old male who presented to emergency department on 06/19/19 the EMS, status post Narcan, after being found by his friend unresponsive on the floor after utilizing intranasal cocaine. Patient denies intent to harm himself. He does carry a past medical history significant for hypertension, left sided femoral artery thrombosis and significant osteoarthritis requiring replacement of his bilateral knees, and hips. In the emergency department, patient was found to be tachycardic. He has a significant elevation in his CK indicating some degree of rhabdomyolysis with an overlying DURGA. PLAN: #Heroine overdose -AMS, resolved at time of admission. -PCU admission with telemetry and continuous pulse ox. -Fall/seizure precautions -Vitals every 4 with active monitoring for hyperthermia, seizures. #Rhabdomyolysis -CK of 3818, >5x ULN, continue to trend -Patient is status post 1L IV bolus in the emergency department. -Patient also received a dose of IV Lasix to increase urine output and reduce the likelihood of hyperkalemia. -Moisés score for rhabdomyolysis: 6.5 points, indicating not low risk. -Renal protective therapy with fluid resuscitation at 200 ml/hr targeting a urinary output of at least 2-3 ml/kg/hr. Close monitoring as to not volume overload the patient. -Strict I&Os -Close monitoring of patient's potassium and calcium with BMP every 6 hours -Consider urine alkalinization with sodium bicarbonate after initial resuscitation if urine pH remains less than 6.0 #DURGA -BUN/Cr of 35/2.37. Baseline creatinine of 1.0. -Will continue with aggressive IV hydration, close monitoring of I's and O's #Hypoxia 2/2 to suspected aspiration pneumonitis -Patient received DuoNeb's and dexamethasone in the emergency department. -Oxygen therapy to maintain saturations above 92%. -Repeat CXR if warranted by radiology report. -Consider Respiratory panel if no improvement. -Continue supportive care. #SIRS criteria with Lactic Acidosis -Pt meets criteria for sepsis given HR >90 and PaCO2 <32 mmHg. Likely 2/2 to drug use and hyperventilation. -Lactic acidosis of 3.6 -UA, repeat CXR to rule out source of infection #Tachycardia -Suspected likely due to patient's amphetamine overdose. Tachycardia improving. Admission to PCU with telemetry monitoring. -Troponins ordered in the ER and found to be negative. #Right knee pain -History of significant bilateral knee pain. Patient reporting specific, new on set of right knee pain status post fall this evening. -Nonemergent plain film imaging to rule out fracture or prosthesis instability #Hyperkalemia -Potassium of 5.3. Pt did receive IV lasix in ED. -Continue to monitor with BMPs #Hypertension -Normotensive on admission -We'll continue patient's home lisinopril/hydrochlorothiazide #Diabetes Patient carries a history of diabetes though he is on any home medications. -A1c to be ordered and patient placed on appropriate pharmacotherapy prior to discharge. #Obesity -BMI of >30, complicating care. Consider sleep study for SALVADOR. Recommend lifesty le modifications DVT prophylaxis: Patient currently anticoagulated with Xarelto. DISPO: will need at least 2 midnight's stay Laboratory Data Labs 24H Laboratory Tests 2 06/19/19 01:56: Immature Granulocyte % (Auto) 0.4, Neutrophils (%) (Auto) 78.7H, Lymphocytes (%) (Auto) 15.1L, Monocytes (%) (Auto) 4.4, Eosinophils (%) (Auto) 0.9, Basophils (%) (Auto) 0.5, Neutrophils # (Auto) 8.6H, Lymphocytes # (Auto) 1.6, Monocytes # (Auto) 0.5, Eosinophils # (Auto) 0.1, Basophils # (Auto) 0.1, Nucleated Red Blood Cells % (auto) 0.0, Prothrombin Time 18.4H, Prothromb Time International Ratio 1.55, Activated Partial Thromboplast Time 31.8, Anion Gap 6L, Glomerular Filtration Rate 30.4L, Lactic Acid Level 3.6*H, Calcium Level 9.4, Total Creatine Kinase 3818H, Creatine Kinase MB 65.8H, Creatine Kinase MB Relative Index 1.72, Troponin I < 0.02 06/19/19 02:26: Blood Gas Bicarbonate Standard 18.8L, Arterial Blood pH 7.373, Arterial Blood Partial Pressure CO2 29.6L, Arterial Blood Partial Pressure O2 66.7L, Arterial Blood Total CO2 17.8L, Arterial Blood HCO3 16.8L, Arterial Blood Base Excess - 7.0L, Arterial Blood Oxygen Saturation 92.9L 06/19/19 02:56: Urine Opiates Screen POSITIVEH, Urine Methadone Screen NEGATIVE, Urine Barbiturates Screen NEGATIVE, Urine Phencyclidine Screen NEGATIVE, Urine Ampheta mines Screen POSITIVEH, Urine Benzodiazepines Screen NEGATIVE, Urine Cocaine Metabolite Screen NEGATIVE, Urine Cannabinoids Screen NEGATIVE CBC/BMP Laboratory Tests 06/19/19 01:56 Home Medications Scheduled Ergocalciferol (Vitamin D2) (Vitamin D2) 50,000 Units Cap, 50,000 UNITS PO QMONTH 1ST OF EVERY MONTH Gabapentin (Gabapentin) 300 Mg Cap, 600 MG PO TID Lisinopril/Hydrochlorothiazide (Lisinopril-Hctz 20-25 mg Tab) 1 Each Tablet, 1 TAB PO DAILY Rivaroxaban (Xarelto) 20 Mg Tablet, 20 MG PO DAILY Scheduled PRN Albuterol Sulfate (Proair Hfa) 8.5 Gm Hfa.aer.ad, 2 PUFF INH Q4H PRN for SHORTNESS OF BREATH Cyclobenzaprine HCl (Cyclobenzaprine HCl) 10 Mg Tablet, 10 MG PO TID PRN for MUSCLE SPASMS Diclofenac Sodium (Diclofenac Sodium) 1% 100GM Gel..gram., 2 GM TOP BID PRN for PAIN APPLIES TO HANDS AND WRISTS NEEDED Oxycodone HCl (Oxycodone HCl) 10 Mg Tablet, 10 MG PO TID PRN for PAIN Allergies Coded Allergies: HAY FEVER (Verified Allergy, Unknown, 01/08/19) bee venom protein (honey bee) (Verified Allergy, Unknown, HIVES, SWELLING,BREATHING DIFFICULTIES, 01/08/19) A-FIB/CHADSVASC A-FIB History Current/History of A-Fib/PAF?: No GME ATTESTATION GME ATTESTATION My faculty preceptor for this patient encounter was physically present during the encounter and was fully available. All aspects of the patient interview, ex amination, medical decision making process, and medical care plan development were reviewed and approved by the faculty preceptor. The faculty preceptor is aware and concurs with the plan as stated in the body of this note and will attest to such by his/her cosignature. ATTENDING NOTE Pls see my progress note from 06/19/19. I reviewed and edited the note and agree with the findings as documented by JENNIFER Cruz DO Jun 19, 2019 04:55 KY OLIVIER MD Jun 21, 2019 07:36
[2019-06-19] MEDS ORDERED: NS 1,000 ML IV SCH ×2 (05:15→13:00)
[2019-06-19] MEDS ORDERED: LORazepam 2 MG TAB PO PRN (05:30)
[2019-06-19] MEDS: THIAMINE 100 MG TAB PO SCH ×2 (05:38→20:05)
[2019-06-19] MEDS ORDERED: LIDOCAINE 5% OINT 30 GM TOP PRN (06:15)
[2019-06-19] MEDS ORDERED: oxyCODONE 5MG TAB PO PRN ×2 (06:15→10:15)
[2019-06-19 06:28] LABS: BLOOD UREA NITROGEN 36 MG/DL (7-18); CARBON DIOXIDE LEVEL 22 MEQ/L (21-32); CHLORIDE LEVEL 109 MEQ/L (98-107); CREATININE FOR GFR 1.98 MG/DL (0.70-1.30); ETHYL ALCOHOL (ETHANOL) < 0.003 % (0.000-0.010); GLOMERULAR FILTRATION RATE 37.4 (>56); GLUCOSE, FASTING 116 MG/DL (70-100); HEMOGLOBIN A1c 6.4 %; POTASSIUM SERUM 4.6 MEQ/L (3.5-5.1); SODIUM LEVEL 138 MEQ/L (136-145)
--- NOTE | 2019-06-19 07:26 | REP ---
Portable chest, 01:58 a.m., single AP view with the patient semi upright: Comparison is the PA and lateral chest study of 01/09/2019. The lung copeland are clear. The cardiac size is normal. The eligio, mediastinum, and skeletal structures are unremarkable. There is an internal fixation plate on the left clavicle, unchanged. Impression: Negative portable chest. There is no interval change. Electronically Signed by Dre Rick MD 06/19/2019 07:17 A
[2019-06-19] MEDS ORDERED: ACETAMINOPHEN 650MG ER TAB (TYLENOL ARTHRITIS) PO SCH (08:00)
--- NOTE | 2019-06-19 08:16 | REP ---
Renal ultrasound for A K I: Comparison is the abdomen/pelvis CT with IV contrast dated 05/13/2018. The right kidney measures 14.0 x 6.3 x 7.3 cm. The left kidney measures 12.0 x 4.9 x 5.7 cm. The kidneys are normal size. Renal cortical echogenicity is normal bilaterally. There is no hydronephrosis or calculus on the right or the left. There are no solid renal masses on the right or the left. There is a right renal mid pole Bosniak type 1 cyst containing a small thin septation, and measuring 5.8 x 6.6 x 6.8 centimeters, similar to the comparison CT. No other cysts are identified. Bladder: No bladder wall polyps or masses are identified. No bladder calculi are identified. Impression: There is a 6.8 cm Bosniak type 1 right renal cyst. Otherwise, negative renal ultrasound. Electronically Signed by Dre Rick MD 06/19/2019 08:07 A
[2019-06-19] MEDS ORDERED: hydroCHLOROthiazide 25 MG TAB PO SCH (09:00)
[2019-06-19] MEDS ORDERED: GABAPENTIN 300 MG CAP PO SCH (09:00)
[2019-06-19] MEDS ORDERED: lisinopriL 20 MG TAB PO SCH (09:00)
[2019-06-19] MEDS: FOLIC ACID 1 MG TAB PO SCH (10:53)
[2019-06-19] MEDS: oxyCODONE 5MG TAB PO SCH ×3 (10:54→20:07)
[2019-06-19] MEDS: RIVAROXABAN 20 MG TAB (XARELTO) PO SCH (10:54)
[2019-06-19] MEDS: GABAPENTIN 300 MG CAP PO SCH ×2 (10:55→20:05)
[2019-06-19] MEDS: MULTIVITAMINS/MINERALS THERAP 1 TAB PO SCH (10:55)
[2019-06-19 11:11] LABS: CALCIUM LEVEL 8.8 MG/DL (8.5-10.1); CREATININE FOR GFR 1.87 MG/DL (0.70-1.30); POTASSIUM SERUM 4.8 MEQ/L (3.5-5.1)
[2019-06-19] MEDS: NS 1,000 ML IV SCH ×2 (14:23→20:50)
[2019-06-19] MEDS: ACETAMINOPHEN 650MG ER TAB (TYLENOL ARTHRITIS) PO SCH ×2 (14:24→20:07)
[2019-06-19 19:29] LABS: C REACTIVE PROTEIN QUANTITATIV 7.34 MG/DL (0.00-0.30); CALCIUM LEVEL 7.8 MG/DL (8.5-10.1); CREATININE FOR GFR 1.54 MG/DL (0.70-1.30); POTASSIUM SERUM 4.1 MEQ/L (3.5-5.1)
[2019-06-20] MEDS: NS 1,000 ML IV SCH ×4 (03:47→21:28)
[2019-06-20 04:00] VITALS: BP_SYST 132; BP_DIAS 67; BP_DIAS 68
[2019-06-20 05:11] LABS: BASO % 0.1 % (0.0-1.0); HEMATOCRIT 35.3 % (42.0-52.0); HEMOGLOBIN 11.2 g/dl (13.5-17.5); LYMPH # 0.7 10^3/uL (1.5-5.0); LYMPH % 5.7 % (24.0-44.0); MEAN CORPUSCULAR HEMOGLOBIN 30.7 pg (27.0-33.0); MEAN CORPUSCULAR HGB CONC 31.7 g/dl (32.0-36.5); MEAN CORPUSCULAR VOLUME 96.7 fl (80.0-96.0); MONO # 0.6 10^3/uL (0.0-0.8); MONO % 5.3 % (0.0-5.0); NEUTROPHILS # 10.2 10^3/uL (1.5-8.5); NEUTROPHILS % 88.3 % (36.0-66.0); PLATELET COUNT, AUTOMATED 198 10^3/uL (150-450); RED BLOOD COUNT 3.65 10^6/uL (4.30-6.10); WHITE BLOOD COUNT 11.5 10^3/uL (4.0-10.0)
[2019-06-20 05:55] LABS: BLOOD UREA NITROGEN 30 MG/DL (7-18); CALCIUM LEVEL 7.8 MG/DL (8.5-10.1); CARBON DIOXIDE LEVEL 25 MEQ/L (21-32); CHLORIDE LEVEL 108 MEQ/L (98-107); CPK CREATINE PHOSPHOKINASE 2111 U/L (39-308); CREATININE FOR GFR 1.29 MG/DL (0.70-1.30); GLOMERULAR FILTRATION RATE > 60.0 (>56); GLUCOSE, FASTING 179 MG/DL (70-100); MAGNESIUM LEVEL 2.2 MG/DL (1.8-2.4); SODIUM LEVEL 140 MEQ/L (136-145)
[2019-06-20 06:00] VITALS: BP 122/64
[2019-06-20] MEDS: ACETAMINOPHEN 650MG ER TAB (TYLENOL ARTHRITIS) PO SCH ×3 (06:51→21:32)
[2019-06-20 08:00] VITALS: BP 135/71
[2019-06-20] MEDS: GABAPENTIN 300 MG CAP PO SCH ×2 (08:25→19:57)
[2019-06-20] MEDS: MULTIVITAMINS/MINERALS THERAP 1 TAB PO SCH (08:25)
[2019-06-20] MEDS: THIAMINE 100 MG TAB PO SCH ×2 (08:27→19:56)
[2019-06-20] MEDS: FOLIC ACID 1 MG TAB PO SCH (08:27)
[2019-06-20] MEDS: RIVAROXABAN 20 MG TAB (XARELTO) PO SCH (08:27)
[2019-06-20] MEDS: oxyCODONE 5MG TAB PO SCH ×3 (08:27→19:56)
[2019-06-20] MEDS: TAMSULOSIN 0.4 MG CAP PO SCH (14:52)
[2019-06-20 15:30] VITALS: BP 136/99
[2019-06-20 15:40] VITALS: BP 136/99
--- NOTE | 2019-06-20 16:14 | IPNPDOC ---
Subjective Date Seen The patient was seen on 06/20/19. Subjective Chief Complaint/HPI Resting in bed awake and alert, repentant this morning. Says it was unintentional OD. Objective Physical Examination General Exam: Positive: Alert, Cooperative, No Acute Distress Eye Exam: Negative: Sclera icteric ENT Exam: Positive: Mucous membr. moist/pink Neck Exam: Positive: Supple Chest Exam: Positive: Clear to auscultation Abdomen Exam: Positive: Normal bowel sounds Extremity Exam: Negative: Edema Skin Exam: Negative: Rash Neuro Exam: Positive: Normal Speech Psych Exam: Positive: Mental status NL, Mood NL Assessment /Plan Assessment # Heroin overdose - transfer to med/surg - NA referral as outpatient - likely home in 24-48 hours - pt eval # Acute Rhabdomyolysis - improved, continue IVFs #DURGA - resolved #Hypoxia 2/2 to suspected aspiration pneumonitis and narcotic effect - nebs prn #SIRS due to non-infectious cause #Hyperkalemia - resolved #Hypertension -Normotensive on admission -We'll continue patient's home lisinopril/hydrochlorothiazide #Diabetes Patient carries a history of diabetes though he is on any home medications. -A1c to be ordered and patient placed on appropriate pharmacotherapy prior to discharge. Plan/VTE VTE Prophylaxis Ordered?: Yes VTE Exclusion Mechanical Proph: N/A:VTE Prophy Ordered VTE Exclusion Pharmacological: N/A:VTE Prophy Ordered VS[facility] Sign[facility]/I&O Vital Signs Date Time Temp Pulse Resp B/P (MAP) Pulse Ox O2 Delivery O2 Flow Rate FiO2 06/20/19 15:40 79 136/99 06/20/19 15:30 97.8 18 93 Room Air 06/20/19 04:00 1.0 I&O- Last 24 Hours up to 6 AM 06/20/19 06:00 Intake Total 8080 ml Output Total 1450 ml Balance 6630 ml Laboratory Data 24H LABS Laboratory Tests 2 06/19/19 18:55: Erythrocyte Sedimentation Rate 28H, Anion Gap 6L, Glomerular Filtration Rate 50.0L, Lactic Acid Level 4.6*H, Calcium Level 7.8L, C-Reactive Protein, Quantitative 7.34H 06/19/19 23:35: Lactic Acid Followup at 4 Hours 3.1*H 06/20/19 04:24: Anion Gap 7L, Glomerular Filtration Rate > 60.0, Calcium Level 7.8L, Immature Granulocyte % (Auto) 0.6, Neutrophils (%) (Auto) 88.3H, Lymphocytes (%) (Auto) 5.7L, Monocytes (%) (Auto) 5.3H, Eosinophils (%) (Auto) 0.0, Basophils (%) (Auto) 0.1, Neutrophils # (Auto) 10.2H, Lymphocytes # (Auto) 0.7L, Monocytes # (Auto) 0.6, Eosinophils # (Auto) 0.0, Basophils # (Auto) 0.0, Nucleated Red Blood Cells % (auto) 0.0, Magnesium Level 2.2, Total Creatine Kinase 2111H CBC/BMP Laboratory Tests 06/19/19 18:55 06/20/19 04:24 Microbiology Microbiology 06/19/19 Blood Culture, Received Pending 06/19/19 Blood Culture, Received Pending 06/19/19 Respiratory Virus Panel (PCR) (ROLANDA) - Final, Complete JULIOCESAR CRYSTAL MD Jun 20, 2019 16:14
--- NOTE | 2019-06-20 20:41 | ECGEPIP ---
[facility] - ED Test Date: 2019-06-19 Pat Name: SARAH YOU Department: Room: 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
[2019-06-20 22:00] VITALS: BP 140/98
[2019-06-21] MEDS: NS 1,000 ML IV SCH (05:00)
[2019-06-21] MEDS: ACETAMINOPHEN 650MG ER TAB (TYLENOL ARTHRITIS) PO SCH (05:00)
[2019-06-21 06:00] VITALS: BP 147/87
[2019-06-21] MEDS ORDERED: ALBUTEROL SULFATE 2.5 MG/0.5 ML INH NEB SOLN NEB ONE (06:00)
[2019-06-21 07:28] LABS: HEMATOCRIT 34.1 % (42.0-52.0); HEMOGLOBIN 11.1 g/dl (13.5-17.5); MEAN CORPUSCULAR HEMOGLOBIN 31.3 pg (27.0-33.0); MEAN CORPUSCULAR HGB CONC 32.6 g/dl (32.0-36.5); MEAN CORPUSCULAR VOLUME 96.1 fl (80.0-96.0); PLATELET COUNT, AUTOMATED 182 10^3/uL (150-450); RED BLOOD COUNT 3.55 10^6/uL (4.30-6.10); WHITE BLOOD COUNT 8.6 10^3/uL (4.0-10.0)
[2019-06-21 08:06] LABS: ALBUMIN 2.6 GM/DL (3.2-5.2); ALT/SGPT 41 U/L (12-78); BILIRUBIN,TOTAL 0.2 MG/DL (0.2-1.0); BLOOD UREA NITROGEN 23 MG/DL (7-18); CALCIUM LEVEL 7.8 MG/DL (8.5-10.1); CARBON DIOXIDE LEVEL 24 MEQ/L (21-32); CHLORIDE LEVEL 112 MEQ/L (98-107); CPK CREATINE PHOSPHOKINASE 769 U/L (39-308); CREATININE FOR GFR 0.96 MG/DL (0.70-1.30); GLOMERULAR FILTRATION RATE > 60.0 (>56); GLUCOSE, FASTING 91 MG/DL (70-100); POTASSIUM SERUM 4.2 MEQ/L (3.5-5.1); SODIUM LEVEL 140 MEQ/L (136-145); TOTAL PROTEIN 5.3 GM/DL (6.4-8.2)
[2019-06-21] MEDS: GABAPENTIN 300 MG CAP PO SCH (08:07)
[2019-06-21] MEDS: FOLIC ACID 1 MG TAB PO SCH (08:07)
[2019-06-21] MEDS: RIVAROXABAN 20 MG TAB (XARELTO) PO SCH (08:07)
[2019-06-21] MEDS: MULTIVITAMINS/MINERALS THERAP 1 TAB PO SCH (08:07)
[2019-06-21] MEDS: TAMSULOSIN 0.4 MG CAP PO SCH (08:07)
[2019-06-21] MEDS: THIAMINE 100 MG TAB PO SCH (08:07)
[2019-06-21] MEDS: oxyCODONE 5MG TAB PO SCH (08:07)
[2019-06-21] MEDS ORDERED: DOXY-350 PO (10:54)
[2019-06-21] MEDS ORDERED: PROAAER10 INH (10:54)
[2019-06-21] MEDS ORDERED: FLOM0.4C39 PO (10:54)
--- NOTE | 2019-06-21 10:58 | IPNPDOC ---
Subjective Date Seen The patient was seen on 06/21/19. Subjective Chief Complaint/HPI feels alot better, ambulating ok. Objective Physical Examination General Exam: Positive: Alert, Cooperative, No Acute Distress Eye Exam: Negative: Sclera icteric ENT Exam: Positive: Mucous membr. moist/pink Neck Exam: Positive: Supple Chest Exam: Positive: Clear to auscultation Abdomen Exam: Positive: Normal bowel sounds Extremity Exam: Negative: Edema Skin Exam: Negative: Rash Neuro Exam: Positive: Normal Speech Psych Exam: Positive: Mental status NL, Mood NL Assessment /Plan Assessment # Heroin overdose - discharge home today - f/u with pcp in 1 week # Acute Rhabdomyolysis - resolving with improved CPK level #DURGA - resolved #Hypoxia 2/2 to suspected aspiration pneumonitis and narcotic effect - nebs prn - doxy x 5 days - albuterol inh prn #SIRS due to non-infectious cause #Hyperkalemia - resolved #Hypertension -Normotensive on admission -We'll continue patient's home lisinopril/hydrochlorothiazide #Diabetes Patient carries a history of diabetes though he is on any home medications. -A1c 6.4, continue diet control, no need for medications Plan/VTE VTE Prophylaxis Ordered?: Yes VTE Exclusion Mechanical Proph: N/A:VTE Prophy Ordered VTE Exclusion Pharmacological: N/A:VTE Prophy Ordered VS, I&O, 24H, Fishbone Vital Signs/I&O Vital Signs Date Time Temp Pulse Resp B/P (MAP) Pulse Ox O2 Delivery O2 Flow Rate FiO2 06/21/19 09:00 18 Room Air 06/21/19 06:00 98.7 70 147/87 (107) 94 06/20/19 04:00 1.0 I&O- Last 24 Hours up to 6 AM 06/21/19 06:00 Intake Total 5070 ml Output Total 800 ml Balance 4270 ml Laboratory Data 24H LABS Laboratory Tests 2 06/21/19 07:10: Nucleated Red Blood Cells % (auto) 0.0, Anion Gap 4L, Glomerular Filtration Rate > 60.0, Calcium Level 7.8L, Total Bilirubin 0.2, Aspartate Amino Transf (AST/SGOT) 45H, Alanine Aminotransferase (ALT/SGPT) 41, Alkaline Phosphatase 66, Total Creatine Kinase 769H, Total Protein 5.3L, Albumin 2.6L, Albumin/Globulin Ratio 0.96L CBC/BMP Laboratory Tests 06/21/19 07:10 Microbiology Microbiology 06/19/19 Blood Culture - Preliminary, Resulted No growth after 24 hours . All specim... 06/19/19 Blood Culture - Preliminary, Resulted No growth after 24 hours . All specim... 06/19/19 Respiratory Virus Panel (PCR) (ROLANDA) - Final, Complete JULIOCESAR CRYSTAL MD Jun 21, 2019 10:58
--- NOTE | 2019-06-21 12:59 | REP ---
Chest x-ray: Two views. History: Shortness of breath. Comparison study: June 19, 2019. Findings: Right hemidiaphragm is slightly elevated unchanged. There is mild linear fibrosis in the right base and right perihilar region also unchanged. Lung copeland are otherwise clear. Pleural angles are sharp. Heart is not enlarged. The patient is status post screw plate fixation device in the left clavicle. No other bony abnormality is seen. Impression: Elevated right hemidiaphragm with right perihilar and right base fibrosis. No acute disease. Electronically Signed by Mahendra Titus MD 06/21/2019 12:51 P
== END 2019-06-21 11:45 | disposition home or self-care (01) | DRG 917 ==
LOC: M ED 01:44 → M ED INP 03:27 → ENRESERVTM 04:13 → ENRESERVDT 04:13 → ENRESERVTM 07:51 → ENRESERVDT 07:51 → M ICU 08:53 → M MS5PR 06-20 15:15
PROVIDERS: ADMIT Internal Medicine; ATTEND Internal Medicine
DX: T40.1X1A Poisoning by heroin, accidental (unintentional), initial encounter (principal); J69.0 Pneumonitis due to inhalation of food and vomit; M62.82 Rhabdomyolysis; N17.9 Acute kidney failure, unspecified; E87.2 Acidosis; R65.10 Systemic inflammatory response syndrome (SIRS) of non-infectious origin without acute organ dysfunction; I10 Essential (primary) hypertension; R09.02 Hypoxemia; E78.00 Pure hypercholesterolemia, unspecified; E11.9 Type 2 diabetes mellitus without complications; J30.1 Allergic rhinitis due to pollen; M19.90 Unspecified osteoarthritis, unspecified site; Z86.718 Personal history of other venous thrombosis and embolism; Z79.01 Long term (current) use of anticoagulants; Z96.651 Presence of right artificial knee joint; Z96.611 Presence of right artificial shoulder joint; Z96.612 Presence of left artificial shoulder joint; Z87.891 Personal history of nicotine dependence; Z87.442 Personal history of urinary calculi; E87.5 Hyperkalemia; E66.9 Obesity, unspecified; Z68.30 Body mass index [BMI] 30.0-30.9, adult; Z79.899 Other long term (current) drug therapy; Z91.030 Bee allergy status

== ENCOUNTER → 2019-09-10 | Outpatient (CLI) | payer MEDICARE ==
[~2019-09-10] MED LIST changes: +CYCL-707 PO; -CYCL10TA PO; +DICL1GEL3 TOP; +DOXY-350 PO; +FLOM0.4C39 PO; +ISOVUE-370 76% 100ML VIAL As Ordered ONE; +PROAAER10 INH; +XARE20TA; +XARE20TA PO
--- NOTE | 2019-09-11 00:09 | REP ---
REASON FOR EXAM: Followup pulmonary nodule. The only prior for comparison is dated 03/06/2019 from an outside institution. I have no report from that exam. CONTRAST: 100 mL Isovue-370. There is no mediastinal or hilar adenopathy. There are no pleural or pericardial effusions. The imaged upper abdomen again shows a large right renal cyst and partially imaged on this chest CT. The imaged osseous structures are within normal limits for the patient's age and unchanged. Evaluation of the lung copeland shows a wedge shaped opacity in the right lower lobe with some air bronchograms within it. There is a curvilinear density in the right middle lobe. The asymmetric, somewhat round density seen previously in the superior segment of the right lower lobe has resolved. A few parenchymal bullae are seen in its stead. There is a 5 mm sized nodule in the left lower lobe. This is unchanged from the prior exam. There are three intrafissural nodules on the left, also unchanged. There is an incidental calcified granuloma in the left upper lobe. IMPRESSION: 1. Asymmetric, somewhat wedge shaped density in the right lower lobe with air bronchograms, suspicious for subsegmental atelectatic and/or fibrotic change. 2. Curvilinear, somewhat discoid appearing density in the right middle lobe, likely chronic fibrotic and/or subsegmental atelectatic change. 3. Resolution of the nodular irregular density in the superior segment of the right lower lobe and now with possible postinfectious pneumatocele. 4. Lung nodules, as described above. 5. A 3-month followup is recommended to ensure resolution of the aforementioned right lung findings. There is no revised Fleischner Society criteria on the recommendation for followup of such findings. Electronically Signed by Byron Cherry DO 09/11/2019 08:08 A
== END ==
LOC: M RAD 16:09
PROVIDERS: ATTEND Physician Assistant Medical
DX: R91.8 Other nonspecific abnormal finding of lung field (principal)
CPT/HCPCS: 71260; Q9967

== ENCOUNTER → 2019-12-19 | Outpatient (CLI) | payer MEDICARE ==
[~2019-12-19] MED LIST changes: -LISI20TA19 PO; +LISI20TA35 PO
--- NOTE | 2020-01-09 12:51 | REP ---
CONTRAST ENHANCED CHEST CT: 12/19/19 CLINICAL: Follow-up solitary pulmonary nodule. TECHNIQUE: Axial contrast enhanced images from the thoracic inlet to the upper abdomen using 75cc Isovue 370 intravenous contrast material with coronal and sagittal reformations. COMPARISON: 09/10/19, 03/06/19. FINDINGS: Curvilinear fibrotic scarring in the right middle lobe and lingula are again noted and stable. Post infectious changes in the apical segment of the right lower lobe with small pneumatocele and linear adjacent scarring appears slightly more prominent than prior examination (images [id number]). The previously noted wedge shaped atelectasis in the anterior segment right lower lobe has resolved. No new areas of consolidation or atelectasis are appreciated. Previously noted scattered non-calcified nodules primarily identified in a left perifascial distribution and within the left lower lobe remained stable. No new area of consolidation, nodule or mass lesion appreciated. No effusion. No pneumothorax. Tracheobronchial tree is patent. No significant adenopathy. Further evaluation of the mediastinum demonstrates normal thoracic aorta, pulmonary vasculature, and heart/pericardium. Surrounding musculoskeletal structures are intact and without focal osseous abnormality. Limited upper abdomen again demonstrates adenomatosis changes to the bilateral adrenal glands and incompletely evaluated right renal cyst measuring at least 6.5cm diameter. IMPRESSION: 1. The previously noted wedge shaped atelectasis in the right lower lobe has resolved and linear fibrotic changes in the right middle lobe and lingula remain stable along with stable small non-calcified nodules primarily noted in the left lower lobe. 2. The postinfectious changes in the apical right lower lobe now demonstrate slightly increased linear presumed scarring. This may warrant follow-up at 6 months to confirm stability. 3. No further acute mediastinal or pleural parenchymal process appreciated. MTDD
== END ==
LOC: M RAD 14:13
PROVIDERS: ATTEND Nurse Practitioner Family
DX: R91.1 Solitary pulmonary nodule (principal)
CPT/HCPCS: 71260; Q9967

== ENCOUNTER 2020-02-09 17:13 | Emergency (ER) | payer MEDICARE ==
[~2020-02-09] VITALS: Ht 180.3 cm; Wt 90.9 kg
[~2020-02-09 17:13] MED LIST changes: -ISOVUE-370 76% 100ML VIAL As Ordered ONE
[2020-02-09] MEDS ORDERED: NS 1,000 ML IV ONE ×2 (17:45→18:15)
[2020-02-09] MEDS ORDERED: ONDANSETRON 4MG/2ML VIAL IV ONE (18:00)
--- NOTE | 2020-02-09 18:33 | REPVR ---
PROCEDURE INFORMATION: Exam: CT Chest Without Contrast Exam date and time: 02/09/2020 5:59 PM Age: 54 years old Clinical indication: Other: Recent femoral surgery sudden pain; Prior surgery; Surgery date: 3-7 days post-operative; Surgery type: Femoral artery; Additional info: Llq pain TECHNIQUE: Imaging protocol: Computed tomography of the chest without contrast. Radiation optimization: All CT scans at this facility use at least one of these dose optimization techniques: automated exposure control; mA and/or kV adjustment per patient size (includes targeted exams where dose is matched to clinical indication); or iterative reconstruction. COMPARISON: CT Chest with contrast 12/19/2019 2:46 PM FINDINGS: Lungs: Bilateral apical pleuroparenchymal scarring. Thickened inferior aspect of the left major fissure. Lungs otherwise clear. Calcified and noncalcified granulomas left lower lobe abut the major fissure. Calcified granuloma left upper lobe. Pleural space: Unremarkable. No pneumothorax. No pleural effusion. Heart: Unremarkable. No cardiomegaly. No pericardial effusion. Aorta: There is fusiform dilatation of the ascending thoracic aorta which measures 3.7 cm. maximally. There is no saccular component. Lymph nodes: Unremarkable. No enlarged lymph nodes. Bones/joints: Unremarkable. No acute fracture. Soft tissues: Unremarkable. Other findings: Status post ORIF left clavicle. IMPRESSION: 1. There is fusiform dilatation of the ascending thoracic aorta which measures 3.7 cm. maximally. There is no saccular component. 2. Findings consistent with remote intrathoracic granulomatous infection. 3. No acute findings. Electronically signed by: Holland Tidwell On 02/09/2020 18:32:59 PM
[2020-02-09 18:34] LABS: BASO # 0.1 10^3/uL (0.0-0.2); BASO % 0.4 % (0.0-1.0); EOS % 0.2 % (0.0-3.0); HEMATOCRIT 52.4 % (42.0-52.0); HEMOGLOBIN 17.3 g/dl (13.5-17.5); LYMPH # 1.9 10^3/uL (1.5-5.0); LYMPH % 13.8 % (24.0-44.0); MEAN CORPUSCULAR HEMOGLOBIN 31.7 pg (27.0-33.0); MEAN CORPUSCULAR VOLUME 96.1 fl (80.0-96.0); MONO # 1.4 10^3/uL (0.0-0.8); MONO % 9.9 % (0.0-5.0); NEUTROPHILS # 10.2 10^3/uL (1.5-8.5); NEUTROPHILS % 75.1 % (36.0-66.0); PLATELET COUNT, AUTOMATED 421 10^3/uL (150-450); RED BLOOD COUNT 5.45 10^6/uL (4.30-6.10); WHITE BLOOD COUNT 13.6 10^3/uL (4.0-10.0)
--- NOTE | 2020-02-09 18:38 | REPVR ---
PROCEDURE INFORMATION: Exam: CT Abdomen And Pelvis Without Contrast Exam date and time: 02/09/2020 5:59 PM Age: 54 years old Clinical indication: Abdominal pain; Localized; Left lower quadrant (llq); Additional info: Llq pain TECHNIQUE: Imaging protocol: Computed tomography of the abdomen and pelvis without contrast. Radiation optimization: All CT scans at this facility use at least one of these dose optimization techniques: automated exposure control; mA and/or kV adjustment per patient size (includes targeted exams where dose is matched to clinical indication); or iterative reconstruction. COMPARISON: CT PELVIS W/ CONTRAST - OUTSIDE PRIOR 03/03/2019 12:00 AM FINDINGS: Liver: Normal. No mass. Gallbladder and bile ducts: Normal. No calcified stones. No ductal dilation. Pancreas: Normal. No ductal dilation. Spleen: Normal. No splenomegaly. Adrenal glands: There is bilateral adrenal hyperplasia. Kidneys and ureters: Large cyst right kidney measures 6.5 cm with a thin calcified septum (Bosniak type II lesion). No follow-up suggested. Stomach and bowel: Mild diverticulosis is present in the left colon. No diverticulitis. Appendix: No evidence of appendicitis. Intraperitoneal space: Unremarkable. No free air. No significant fluid collection. Vasculature: The aortoiliac vessels demonstrate mild atherosclerotic calcification. Lymph nodes: Unremarkable. No enlarged lymph nodes. Urinary bladder: Unremarkable as visualized. Reproductive: The prostate gland demonstrates mild hyperplasia. Bones/joints: There is a grade 1/2 anterior spondylolisthesis of L5 on S1 secondary to bilateral L5 spondylolysis. Status post bilateral hip replacements. Soft tissues: Calcified injection granuloma anterior abdominal wall. Fatty supraumbilical hernia without incarceration. IMPRESSION: 1. There is a grade 1/2 anterior spondylolisthesis of L5 on S1 secondary to bilateral L5 spondylolysis. 2. There is bilateral adrenal hyperplasia. 3. Large cyst right kidney measures 6.5 cm with a thin calcified septum (Bosniak type II lesion). No follow-up suggested. 4. Mild diverticulosis is present in the left colon. No diverticulitis. 5. Mild prostatic hyperplasia. 6. Fatty supraumbilical hernia without incarceration. COMMENTS: Consistent with the [employer]'s Incidental Findings Committee white paper (J Am Jodi Radiol 2018): Any incidental renal lesion less than 1 cm or classified as too small to characterize, or any incidental cystic renal lesion characterized as simple-appearing, is likely benign. No follow-up imaging is recommended for these lesions per consensus recommendations based on imaging criteria. Electronically signed by: Holland Tidwell On 02/09/2020 18:38:16 PM
[2020-02-09 19:10] LABS: ALBUMIN 4.3 GM/DL (3.2-5.2); BILIRUBIN,DIRECT 0.3 MG/DL (0.0-0.2); BILIRUBIN,TOTAL 1.4 MG/DL (0.2-1.0); TOTAL PROTEIN 8.1 GM/DL (6.4-8.2)
[2020-02-09] MEDS: fentaNYL 100 MCG/2 ML INJECTION (J3010) IV PRN ×3 (19:36→19:39)
[2020-02-09 19:41] VITALS: BP 127/76
--- NOTE | 2020-02-09 22:13 | ECGEPIP ---
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
== END 2020-02-09 19:52 | disposition short-term general hospital (02) ==
LOC: M ED 17:13
DX: J96.00 Acute respiratory failure, unspecified whether with hypoxia or hypercapnia (principal); R10.30 Lower abdominal pain, unspecified; I95.9 Hypotension, unspecified; I10 Essential (primary) hypertension; J44.9 Chronic obstructive pulmonary disease, unspecified; N40.0 Benign prostatic hyperplasia without lower urinary tract symptoms; Z79.899 Other long term (current) drug therapy; Z79.01 Long term (current) use of anticoagulants; Z91.030 Bee allergy status; F17.210 Nicotine dependence, cigarettes, uncomplicated
CPT/HCPCS: 36415; 71250; 74176; 80076; 81001; 83690; 85025; 86850; 86900; 86901; 87040; 87086; 93005; 93041; 96361; 96374; 96375; 99291; 99292; J2405; J3010; U0002

== ENCOUNTER → 2020-05-15 | Outpatient (CLI) | payer MEDICARE ==
[~2020-05-15] MED LIST changes: +GABA-282 PO; -GABA-843 PO
[2020-05-15 14:07] LABS: BASO % 0.6 % (0.0-1.0); EOS % 0.4 % (0.0-3.0); HEMOGLOBIN 13.3 g/dl (13.5-17.5); LYMPH # 1.8 10^3/uL (1.5-5.0); MEAN CORPUSCULAR HEMOGLOBIN 31.2 pg (27.0-33.0); MEAN CORPUSCULAR HGB CONC 31.7 g/dl (32.0-36.5); MEAN CORPUSCULAR VOLUME 98.6 fl (80.0-96.0); MONO # 0.7 10^3/uL (0.0-0.8); MONO % 9.9 % (0.0-5.0); NEUTROPHILS # 4.4 10^3/uL (1.5-8.5); NEUTROPHILS % 62.8 % (36.0-66.0); PLATELET COUNT, AUTOMATED 310 10^3/uL (150-450); RED BLOOD COUNT 4.26 10^6/uL (4.30-6.10)
[2020-05-15 14:41] LABS: C REACTIVE PROTEIN QUANTITATIV < 0.30 MG/DL (0.00-0.30); RHEUMATOID FACTOR QUANT < 10.0 IU/ML (<15.0)
[2020-05-15 14:42] LABS: ERYTHROCYTE SEDIMENTATION RATE 7 mm/hr (0-20)
[2020-05-16 17:12] LABS: ANTINUCLEAR ANTIBODIES DIRECT Negative (Negative); Lyme Disease IgG/IgM Antibodie <0.91 ISR (0.00-0.90); Lyme Disease IgM Ab Quantitati <0.80 index (0.00-0.79)
== END ==
LOC: M LAB 12:39
PROVIDERS: ATTEND Orthopaedic Surgery
DX: M19.071 Primary osteoarthritis, right ankle and foot (principal); Z79.899 Other long term (current) drug therapy

== ENCOUNTER → 2020-05-15 | Outpatient (CLI) | payer MEDICARE ==
[2020-05-15 14:07] LABS: BASO % 0.5 % (0.0-1.0); EOS % 0.6 % (0.0-3.0); HEMATOCRIT 41.4 % (42.0-52.0); LYMPH # 1.6 10^3/uL (1.5-5.0); MEAN CORPUSCULAR HEMOGLOBIN 31.1 pg (27.0-33.0); MEAN CORPUSCULAR HGB CONC 31.4 g/dl (32.0-36.5); MONO # 0.6 10^3/uL (0.0-0.8); MONO % 9.6 % (0.0-5.0); NEUTROPHILS # 4.2 10^3/uL (1.5-8.5); PLATELET COUNT, AUTOMATED 307 10^3/uL (150-450); RED BLOOD COUNT 4.18 10^6/uL (4.30-6.10); WHITE BLOOD COUNT 6.6 10^3/uL (4.0-10.0)
[2020-05-15 14:46] LABS: ALBUMIN 3.9 GM/DL (3.2-5.2); ALT/SGPT 41 U/L (12-78); BILIRUBIN,TOTAL 0.2 MG/DL (0.2-1.0); BLOOD UREA NITROGEN 29 MG/DL (7-18); CALCIUM LEVEL 9.8 MG/DL (8.5-10.1); CARBON DIOXIDE LEVEL 25 MEQ/L (21-32); CHLORIDE LEVEL 111 MEQ/L (98-107); CHOLESTEROL LEVEL 122 MG/DL (<200); CREATININE FOR GFR 1.02 MG/DL (0.70-1.30); GLOMERULAR FILTRATION RATE > 60.0 (>56); GLUCOSE, FASTING 113 MG/DL (70-100); HDL CHOLESTEROL 40 MG/DL (>40); LDL CHOLESTEROL 47 MG/DL (<100); NON-HDL-C 82 MG/DL; POTASSIUM SERUM 4.5 MEQ/L (3.5-5.1); SODIUM LEVEL 144 MEQ/L (136-145); TOTAL PROTEIN 6.8 GM/DL (6.4-8.2); TRIGLYCERIDES LEVEL 173 MG/DL (<150)
== END ==
LOC: M LAB 12:35
PROVIDERS: ATTEND Nurse Practitioner Family
DX: I10 Essential (primary) hypertension (principal)

== ENCOUNTER 2020-06-08 17:49 | Emergency (ER) | payer MEDICARE ==
[~2020-06-08] VITALS: Ht 180.3 cm; Wt 89.5 kg
[~2020-06-08 17:49] MED LIST changes: +LISI10TA22 PO; -LISI10TA4 PO
[2020-06-08] MEDS ORDERED: LISI10TA22 (18:01)
[2020-06-08] MEDS ORDERED: NS 1,000 ML IV SCH (18:18)
[2020-06-08] MEDS ORDERED: ONDANSETRON 4MG/2ML VIAL IV ONE (18:20)
[2020-06-08 18:44] LABS: BASO % 0.6 % (0.0-1.0); EOS # 0.2 10^3/uL (0.0-0.5); EOS % 3.6 % (0.0-3.0); HEMATOCRIT 46.8 % (42.0-52.0); HEMOGLOBIN 15.1 g/dl (13.5-17.5); LYMPH # 1.7 10^3/uL (1.5-5.0); LYMPH % 27.3 % (24.0-44.0); MEAN CORPUSCULAR HEMOGLOBIN 30.2 pg (27.0-33.0); MEAN CORPUSCULAR HGB CONC 32.3 g/dl (32.0-36.5); MEAN CORPUSCULAR VOLUME 93.6 fl (80.0-96.0); MONO # 0.7 10^3/uL (0.0-0.8); MONO % 11.3 % (2.0-8.0); NEUTROPHILS # 3.5 10^3/uL (1.5-8.5); NEUTROPHILS % 56.9 % (36.0-66.0); PLATELET COUNT, AUTOMATED 306 10^3/uL (150-450); WHITE BLOOD COUNT 6.2 10^3/uL (4.0-10.0)
[2020-06-08 18:54] LABS: INR 0.97; PROTHROMBIN TIME 13.1 SECONDS (12.5-14.3)
[2020-06-08] MEDS: MORPHINE 4 MG/ML 1ML VIAL/SYRINGE (J2270) IV PRN ×2 (18:54→19:49)
[2020-06-08 19:48] LABS: ALBUMIN 3.4 GM/DL (3.2-5.2); ALT/SGPT 30 U/L (12-78); BILIRUBIN,DIRECT < 0.1 MG/DL (0.0-0.2); BILIRUBIN,TOTAL < 0.1 MG/DL (0.2-1.0); BLOOD UREA NITROGEN 18 MG/DL (7-18); CALCIUM LEVEL 9.3 MG/DL (8.5-10.1); CARBON DIOXIDE LEVEL 23 MEQ/L (21-32); CHLORIDE LEVEL 111 MEQ/L (98-107); CREATININE FOR GFR 0.89 MG/DL (0.70-1.30); GLOMERULAR FILTRATION RATE > 60.0 (>56); GLUCOSE, FASTING 81 MG/DL (70-100); LIPASE 125 U/L (73-393); POTASSIUM SERUM 4.4 MEQ/L (3.5-5.1); SODIUM LEVEL 141 MEQ/L (136-145); TOTAL PROTEIN 6.6 GM/DL (6.4-8.2)
[2020-06-08] MEDS ORDERED: TAMSULOSIN 0.4 MG CAP PO ONE (22:00)
[2020-06-08] MEDS ORDERED: KETOROLAC 30 MG/ML 1ML VIAL IV ONE (22:00)
--- NOTE | 2020-06-08 22:42 | REPVR ---
PROCEDURE INFORMATION: Exam: CT Abdomen And Pelvis Without Contrast Exam date and time: 06/08/2020 10:06 PM Age: 55 years old Clinical indication: Abdominal pain; Localized; Left; Additional info: Kidney stone protocol if possible cut low to include hips TECHNIQUE: Imaging protocol: Computed tomography of the abdomen and pelvis without contrast. Radiation optimization: All CT scans at this facility use at least one of these dose optimization techniques: automated exposure control; mA and/or kV adjustment per patient size (includes targeted exams where dose is matched to clinical indication); or iterative reconstruction. COMPARISON: CT ABD PELVIS W/O CONTRAST 02/09/2020 5:55 PM FINDINGS: Lungs: There is dependent atelectasis in both lower lobes. The lungs were not fully imaged. Heart: No cardiomegaly or pericardial effusion. Diaphragm: There is mild elevation of the right hemidiaphragm. Liver: Unremarkable. No liver lesion is identified. The contour of the liver is smooth. No hepatomegaly is noted. Gallbladder and bile ducts: No calcified gallstones are noted. No gallbladder wall thickening, pericholecystic fluid, or pericholecystic inflammatory changes are identified. No dilation of the bile ducts is noted. No calcified stones are seen in the common bile duct. Pancreas: Unremarkable. No dilation of the main pancreatic duct is noted. There is no inflammatory fat stranding around the pancreas to suggest acute pancreatitis. Spleen: Unremarkable. No splenomegaly is noted. Incidental note is made of a small accessory spleen. Adrenal glands: There is thickening of the adrenal glands that is similar in appearance compared to the prior CT abdomen and pelvis on 02/09/2020. Kidneys and ureters: There is a 6.5 cm benign-appearing cyst containing a thin calcified septation that is unchanged compared to the prior CT abdomen and pelvis on 02/09/2020 and for which follow-up imaging is not recommended. There is nonobstructive right nephrolithiasis. No stones are seen in the left kidney or ureters. No hydronephrosis or hydroureter is noted. Stomach and bowel: The stomach is decompressed, limiting its optimal evaluation. The small bowel is unremarkable. There is colonic diverticulosis without evidence for diverticulitis. There is no evidence for a bowel obstruction, colitis, pneumatosis intestinalis, intussusception, volvulus, or perforated viscus. Appendix: Normal. There is no evidence for appendicitis. Intraperitoneal space: No free air. No ascites. No abscess. Retroperitoneal space: No fluid collection. No mass. Vasculature: The abdominal aorta is normal in caliber. There are mild atherosclerotic calcifications. Lymph nodes: No enlarged lymph nodes. Urinary bladder: The distended urinary bladder is normal in appearance. No stones or masses are seen in the bladder. Reproductive: The prostate gland is enlarged and measures 3.8 cm x 5 cm x 4.3 cm and the volume of the prostate gland is increased and measures 42.7 mL. The seminal vesicles are unremarkable. Bones/joints: There is no fracture or dislocation. No suspicious osteolytic or osteoblastic lesion. Bilateral total hip arthroplasty hardware is in place, which causes streak artifact, and the hardware is intact and appropriately positioned as visualized. However, the femoral stem components of the hardware is were not fully imaged in their distal portions. There is a chronic right L5 pars defect and a grade 1 anterolisthesis of L5 on S1, which are similar findings compared to the prior CT abdomen and pelvis on 02/09/2020. Soft tissues: There is a small fat containing periumbilical hernia located just above the umbilicus, which is similar in appearance compared to the prior CT abdomen and pelvis on 02/09/2020. There is a ventral hernia repair mesh in place above this periumbilical hernia. There are dystrophic calcifications in the subcutaneous tissues in the upper anterior abdominal wall just to the left of midline. IMPRESSION: 1. No acute findings in the abdomen or pelvis. 2. Nonobstructive right nephrolithiasis. No stones in the left kidney, ureters, or urinary bladder. 3. Colonic diverticulosis without evidence for diverticulitis. 4. Small fat containing periumbilical hernia located just above the umbilicus that is stable compared to the prior CT abdomen and pelvis on 02/09/2020. 5. Enlarged prostate. Electronically signed by: Donnie Soto On 06/08/2020 22:42:34 PM
[2020-06-09] MEDS ORDERED: ACETAMINOPHEN 325 MG TAB PO ONE (00:35)
[2020-06-09] MEDS ORDERED: MORPHINE 4 MG/ML 1ML VIAL/SYRINGE (J2270) IV ONE (01:05)
[2020-06-09] MEDS ORDERED: ISOVUE-370 76% 100ML VIAL As Ordered ONE (01:08)
--- NOTE | 2020-06-09 01:50 | REPVR ---
PROCEDURE INFORMATION: Exam: CT Abdomen And Pelvis With Contrast Exam date and time: 06/09/2020 1:21 AM Age: 55 years old Clinical indication: R/O diverticulitis; Abdominal pain; Localized; Left TECHNIQUE: Imaging protocol: Computed tomography of the abdomen and pelvis with contrast. Radiation optimization: All CT scans at this facility use at least one of these dose optimization techniques: automated exposure control; mA and/or kV adjustment per patient size (includes targeted exams where dose is matched to clinical indication); or iterative reconstruction. Contrast material: ISOVUE 370; Contrast volume: 100 ml; Contrast route: INTRAVENOUS (IV); COMPARISON: 1. CT ABD PELVIS W/O CONTRAST 06/08/2020 10:[address] ABD/PEL W/IV CONTRAST ONLY 05/13/2018 8:58:24 PM FINDINGS: Lungs: There is mild dependent atelectasis in both lower lobes. The lungs were not fully imaged. Heart: No cardiomegaly or pericardial effusion. Diaphragm: The right hemidiaphragm is elevated, which is similar in appearance compared to the prior CT abdomen and pelvis on 06/08/2020. Liver: Unremarkable. No liver lesion is identified. The contour of the liver is smooth. No hepatomegaly is noted. Gallbladder and bile ducts: No calcified gallstones are noted. No gallbladder wall thickening, pericholecystic fluid, or pericholecystic inflammatory changes are identified. No dilation of the bile ducts is noted. No calcified stones are seen in the common bile duct. Pancreas: Normal. No dilation of the main pancreatic duct is noted. There is no inflammatory fat stranding around the pancreas to suggest acute pancreatitis. Spleen: Normal. No splenomegaly is noted. Incidental note is made of a small accessory spleen. Adrenal glands: There is thickening of the adrenal glands that is similar in appearance compared to the prior CT abdomen and pelvis on 06/08/2020. Kidneys and ureters: There is a 6.5 cm benign-appearing cyst containing a thin calcified septation in the right kidney that is unchanged compared to the prior CT abdomen and pelvis on 06/08/2020 and for which further imaging follow-up is not necessary. There is a 3 mm calculus in an upper pole calyx of the right kidney that is unchanged compared to the prior CT abdomen and pelvis on 06/08/2020. There is left renal cortical scarring. No solid renal mass is noted. No calculi are noted in the left kidney or in the ureters. There is no hydronephrosis or hydroureter. There are no wedge-shaped areas of low attenuation in the kidneys to suggest pyelonephritis. There is no renal abscess or perinephric fluid collection. Stomach and bowel: The stomach and small bowel are unremarkable. There is colonic diverticulosis without evidence for diverticulitis. There is no evidence for a bowel obstruction, colitis, pneumatosis intestinalis, intussusception, volvulus, or perforated viscus. Appendix: Normal. There is no evidence for appendicitis. Intraperitoneal space: No free air. No ascites. No abscess. Retroperitoneal space: No fluid collection. No mass. Vasculature: The abdominal aorta is patent, normal in caliber, and there is no dissection. The iliac arteries, common femoral arteries, renal arteries, celiac artery, superior mesenteric artery, and inferior mesenteric artery are patent. There are mild atherosclerotic calcifications. Lymph nodes: Normal. No enlarged lymph nodes. Urinary bladder: The distended urinary bladder is normal in appearance. No stones or masses are seen in the bladder. Reproductive: The prostate gland is enlarged and measures 3.8 cm x 5 cm x 4.3 cm and the volume of the prostate gland is increased and measures 42.7 mL. The seminal vesicles are unremarkable. Bones/joints: There is no acute fracture. No suspicious osteolytic or osteoblastic lesion. Bilateral total hip arthroplasty hardware is in place, which causes streak artifact, and the hardware is intact and appropriately positioned as visualized. However, the femoral stem components of the hardware were not fully imaged in their distal portions. There is a chronic right L5 pars defect and a grade 1 anterolisthesis of L5 on S1, which are similar findings compared to the prior CT abdomen and pelvis on 06/08/2020. There is an old healed fracture deformity involving the left posterolateral 7th rib that is unchanged compared to the prior CT abdomen and pelvis on 05/13/2018. There is a mild levoscoliosis of the lumbar spine and degenerative changes in the lumbar spine. Soft tissues: There is a small fat containing periumbilical hernia located just above the umbilicus, which is similar in appearance compared to the prior CT abdomen and pelvis on 06/08/2020. There is a ventral hernia repair mesh in place above this periumbilical hernia. There are dystrophic calcifications in the subcutaneous tissues in the upper anterior abdominal wall just to the left of midline. IMPRESSION: 1. No acute findings in the abdomen or pelvis. 2. Nonobstructive right nephrolithiasis. No stones in the left kidney, ureters, or urinary bladder. 3. Colonic diverticulosis without evidence for diverticulitis. 4. Small fat containing periumbilical hernia located just above the umbilicus that is stable compared to the prior CT abdomen and pelvis on 06/08/2020. 5. Enlarged prostate. Electronically signed by: Donnie Soto On 06/09/2020 01:50:28 AM
[2020-06-09 03:00] VITALS: BP 130/73
[2020-06-09] MEDS ORDERED: CYCLOBENZAPRINE 5MG TABLET PO ONE (03:00)
[2020-06-09] MEDS ORDERED: CYCL-707 PO (03:13)
[2020-06-09] MEDS ORDERED: PERC5TAB12 PO (03:13)
[2020-06-09] MEDS ORDERED: IBUP-1022 PO (03:13)
== END 2020-06-09 03:32 | disposition home or self-care (01) ==
LOC: M ED 17:49
DX: I10 Essential (primary) hypertension (principal); E78.5 Hyperlipidemia, unspecified; M19.90 Unspecified osteoarthritis, unspecified site; Z91.030 Bee allergy status; J30.89 Other allergic rhinitis; Z79.899 Other long term (current) drug therapy; F17.210 Nicotine dependence, cigarettes, uncomplicated
CPT/HCPCS: 74176; 74177; 80048; 80076; 81001; 83690; 85025; 85610; 93041; 96374; 96375; 96376; 99285; J1885; J2270; J2405; Q9967

== ENCOUNTER 2020-07-05 04:38 | Emergency (ER) | payer MEDICARE ==
[~2020-07-05] VITALS: Ht 180.3 cm; Wt 95.5 kg
[~2020-07-05 04:38] MED LIST changes: +IBUP-1022 PO; +LISI10TA22
[2020-07-05 05:05] LABS: HEMATOCRIT 42.9 % (42.0-52.0); HEMOGLOBIN 13.8 g/dl (13.5-17.5); MEAN CORPUSCULAR HEMOGLOBIN 30.7 pg (27.0-33.0); MEAN CORPUSCULAR HGB CONC 32.2 g/dl (32.0-36.5); MEAN CORPUSCULAR VOLUME 95.3 fl (80.0-96.0); PLATELET COUNT, AUTOMATED 290 10^3/uL (150-450); WHITE BLOOD COUNT 12.9 10^3/uL (4.0-10.0)
[2020-07-05 05:32] LABS: ALT/SGPT 28 U/L (12-78); BILIRUBIN,TOTAL 0.3 MG/DL (0.2-1.0); BLOOD UREA NITROGEN 21 MG/DL (7-18); CALCIUM LEVEL 8.9 MG/DL (8.5-10.1); CARBON DIOXIDE LEVEL 26 MEQ/L (21-32); CHLORIDE LEVEL 106 MEQ/L (98-107); CPK CREATINE PHOSPHOKINASE 385 U/L (39-308); CREATININE FOR GFR 0.84 MG/DL (0.70-1.30); ETHYL ALCOHOL (ETHANOL) < 0.003 % (0.000-0.010); GLOMERULAR FILTRATION RATE > 60.0 (>56); GLUCOSE, FASTING 141 MG/DL (70-100); MB/CK RELATIVE INDEX 2.08 (< OR =4); POTASSIUM SERUM 3.8 MEQ/L (3.5-5.1); SODIUM LEVEL 139 MEQ/L (136-145); TOTAL PROTEIN 7.2 GM/DL (6.4-8.2)
[2020-07-05 06:30] LABS: TROPONIN I < 0.02 NG/ML (< 0.10)
[2020-07-05] MEDS ORDERED: LISI20TA33 (07:33)
[2020-07-05 07:37] LABS: AMPHETAMINES LEVEL URINE NEGATIVE (NEGATIVE); BARBITURATES URINE NEGATIVE (NEGATIVE); BENZODIAZEPINES URINE NEGATIVE (NEGATIVE); CANNABINOIDS URINE NEGATIVE (NEGATIVE); COCAINE METABOLITE URINE POSITIVE (NEGATIVE); METHADONE URINE NEGATIVE (NEGATIVE); OPIATES URINE POSITIVE (NEGATIVE); PHENCYCLIDINE URINE NEGATIVE (NEGATIVE)
[2020-07-05 07:46] VITALS: BP 150/98
[2020-07-05 08:03] LABS: BASO # 0.1 10^3/uL (0.0-0.2); BASO % 0.5 % (0.0-1.0); EOS # 0.2 10^3/uL (0.0-0.5); EOS % 1.3 % (0.0-3.0); LYMPH # 1.4 10^3/uL (1.5-5.0); LYMPH % 10.2 % (24.0-44.0); MONO # 0.9 10^3/uL (0.0-0.8); MONO % 6.9 % (2.0-8.0); NEUTROPHILS # 10.6 10^3/uL (1.5-8.5); NEUTROPHILS % 80.6 % (36.0-66.0)
--- NOTE | 2020-07-06 07:33 | ECGEPIP ---
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
== END 2020-07-05 08:27 | disposition home or self-care (01) ==
LOC: M ED 04:38
DX: R41.82 Altered mental status, unspecified (principal); F14.10 Cocaine abuse, uncomplicated; T50.995A Adverse effect of other drugs, medicaments and biological substances, initial encounter; X58.XXXA Exposure to other specified factors, initial encounter; Y92.89 Other specified places as the place of occurrence of the external cause; I10 Essential (primary) hypertension; Z86.718 Personal history of other venous thrombosis and embolism; Z91.030 Bee allergy status; J30.89 Other allergic rhinitis

== ENCOUNTER → 2020-08-11 | Outpatient (CLI) | payer BC, MEDICARE ==
[~2020-08-11] MED LIST changes: +LISI20TA33
--- NOTE | 2020-08-11 23:12 | REP ---
INDICATION: ABNORMAL FINDING OF LUNG FIELD COMPARISON: None TECHNIQUE: Axial noncontrast images from the thoracic inlet to the upper abdomen with coronal and sagittal reformations. This CT examination was performed using the following dose reduction techniques: Automated exposure control, adjustment of mA and/or kv according to the patient's size, and use of iterative reconstruction technique. FINDINGS: Biapical scarring along with few small scattered small calcified and noncalcified parenchymal nodules and perifissural nodules are again identified and similar to prior examination consistent with prior granulomatous disease. There is presumed increased linear fibro atelectatic changes in the posterior right lower lobe. No further acute consolidation. No effusion. No pneumothorax. No significant adenopathy. Tracheobronchial tree is patent. Mediastinum demonstrates mild/moderate aneurysmal dilatation to the ascending thoracic aorta measuring 3.9 cm diameter. Pulmonary vasculature appears normal. Heart and pericardium appear normal. No pericardial effusion. Musculoskeletal structures are intact and without acute osseous abnormality. Limited upper abdomen demonstrates stable hyperplastic changes to the adrenal glands and large incompletely evaluated right renal cyst. IMPRESSION: 1. Parenchymal changes suggesting granulomatous disease with small stable nodules and apical scarring. 2. Increased presumed progressive fibroatelectatic changes in the right lower lobe. No acute consolidation or new suspicious nodule. Consider follow-up examination at 9-12 months if necessary. 3. Aneurysmal dilatation to the ascending thoracic aorta measuring 3.9 cm diameter. Findings slightly increased in size from prior examination of 2019. <Electronically signed by Lawrence Kelly > 08/11/20 [id number]
== END ==
LOC: M RAD 13:20
PROVIDERS: ATTEND Internal Medicine Pulmonary Disease
DX: R91.8 Other nonspecific abnormal finding of lung field (principal); I77.810 Thoracic aortic ectasia

== ENCOUNTER 2020-10-11 13:17 | Inpatient (IN) | payer MEDICARE ==
[~2020-10-11] VITALS: Ht 180.3 cm; Wt 83.4 kg
[~2020-10-11 13:17] MED LIST changes: +ERGO500029 PO; -LISI20TA33; +LISI20TA33 PO
[2020-10-11] MEDS ORDERED: DULO1CAP4 PO (13:35)
[2020-10-11] MEDS ORDERED: ECOT81TA5 PO (13:35)
[2020-10-11] MEDS ORDERED: ONDANSETRON 4MG/2ML VIAL IV ONE (13:55)
[2020-10-11 13:59] LABS: BASO % 0.2 % (0.0-1.0); EOS % 0.1 % (0.0-3.0); HEMATOCRIT 51.7 % (42.0-52.0); HEMOGLOBIN 17.4 g/dl (13.5-17.5); LYMPH # 0.6 10^3/uL (1.5-5.0); LYMPH % 5.9 % (24.0-44.0); MEAN CORPUSCULAR HEMOGLOBIN 31.6 pg (27.0-33.0); MEAN CORPUSCULAR HGB CONC 33.7 g/dl (32.0-36.5); MEAN CORPUSCULAR VOLUME 93.8 fl (80.0-96.0); MONO # 0.3 10^3/uL (0.0-0.8); MONO % 2.6 % (2.0-8.0); NEUTROPHILS # 8.7 10^3/uL (1.5-8.5); NEUTROPHILS % 90.7 % (36.0-66.0); PLATELET COUNT, AUTOMATED 338 10^3/uL (150-450); RED BLOOD COUNT 5.51 10^6/uL (4.30-6.10); WHITE BLOOD COUNT 9.6 10^3/uL (4.0-10.0)
[2020-10-11] MEDS ORDERED: KETOROLAC 30 MG/ML 1ML VIAL IV ONE (14:05)
[2020-10-11] MEDS ORDERED: MORPHINE 4 MG/ML 1ML VIAL/SYRINGE (J2270) IV ONE (14:20)
[2020-10-11 14:21] LABS: ALBUMIN 4.6 GM/DL (3.2-5.2); ALT/SGPT 26 U/L (12-78); BILIRUBIN,DIRECT 0.2 MG/DL (0.0-0.2); BILIRUBIN,TOTAL 0.9 MG/DL (0.2-1.0); LIPASE 97 U/L (73-393); TOTAL PROTEIN 7.8 GM/DL (6.4-8.2)
[2020-10-11 14:30] LABS: BLOOD UREA NITROGEN 21 MG/DL (7-18); CALCIUM LEVEL 10.1 MG/DL (8.5-10.1); CARBON DIOXIDE LEVEL 25 MEQ/L (21-32); CHLORIDE LEVEL 106 MEQ/L (98-107); CREATININE FOR GFR 1.12 MG/DL (0.70-1.30); GLOMERULAR FILTRATION RATE > 60.0 (>56); GLUCOSE, FASTING 122 MG/DL (70-100); POTASSIUM SERUM 4.2 MEQ/L (3.5-5.1); SODIUM LEVEL 137 MEQ/L (136-145)
[2020-10-11] MEDS ORDERED: GASTROGRAFIN SOLUTION 30ML (Q9963) As Ordered ONE (14:48)
[2020-10-11] MEDS: GASTROGRAFIN SOLUTION 30ML PO SCH ×2 (15:12→15:46)
[2020-10-11] MEDS ORDERED: MORPHINE 2 MG/ML 1ML VIAL (J2270) IV ONE (15:35)
[2020-10-11] MEDS ORDERED: ISOVUE-370 76% 100ML VIAL As Ordered ONE (16:40)
--- NOTE | 2020-10-11 17:22 | REP ---
INDICATION: sbo. COMPARISON: 06/09/2020 TECHNIQUE: Axial contrast-enhanced images from the lung bases to the pubic symphysis using oral and 100 cc Isovue 370 intravenous contrast material. Coronal and sagittal reformations obtained. This CT examination was performed using the following dose reduction techniques: Automated exposure control, adjustment of mA and/or kv according to the patient's size, and the use of iterative reconstruction technique. FINDINGS: Liver, spleen, pancreas, gallbladder, and bilateral adrenal glands are essentially normal/stable. Left kidney demonstrates mild cortical scarring, and the right kidney includes 7.8 cm simple cyst with single thin septation. The enteric system including stomach, small, and large bowel appears normal. No evidence for obstruction or acute inflammatory process. Normal terminal ileum and appendix are identified in the right lower quadrant. Sigmoid diverticulosis noted without acute diverticulitis. Fat containing supraumbilical periumbilical again hernia noted. Evaluation of the pelvis is limited due to beam hardening artifact from bilateral hip prostheses. Visualized portions of the bladder and prostate/seminal vesicles appear relatively normal. No ascites. No free air. No intraperitoneal or retroperitoneal adenopathy. Abdominal aorta and vasculature appear normal. Musculoskeletal structures are intact and without acute osseous abnormality. IMPRESSION: No acute abdominopelvic pathology appreciated. Nonacute findings as described above. No ascites, focal inflammatory stranding, free air or adenopathy. <Electronically signed by Lawrence Kelly > 10/11/20 [id number]
[2020-10-11] MEDS ORDERED: hydrALAZINE 20MG/ML 1ML VIAL (J0360 PER 20MG) IV ONE ×3 (17:40→23:05)
[2020-10-11] MEDS ORDERED: HYDROMORPHONE HCL 0.5 MG/ 0.5 ML SYRINGE (J1170 PER 1) IV ONE (18:45)
[2020-10-11] MEDS ORDERED: GI COCKTAIL 50ML BTL(HYOSCYAMINE/MAALOX/LIDOCAINE VISCOUS)(1:3:1) PO ONE (18:55)
[2020-10-11] MEDS ORDERED: MOM 30ML SUSPENSION UDC PO PRN (21:00)
[2020-10-11] MEDS ORDERED: ACETAMINOPHEN TAB 650MG DOSE (2X325MG) PO PRN (21:00)
[2020-10-11 21:03] LABS: RSV AMPLIFICATION NEGATIVE (NEGATIVE)
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
[2020-10-11] MEDS ORDERED: PANTOPRAZOLE 40MG VIAL (C9113 PER 1) IV ONE (21:25)
[2020-10-11] MEDS: NORCO, ANEXSIA 5/325MG TABLET (HYDROcodone/ACETAMINOPHEN) PO PRN (22:08)
[2020-10-11] MEDS: GABAPENTIN 300 MG CAP PO SCH (22:09)
[2020-10-11] MEDS: MORPHINE 4 MG/ML 1ML VIAL/SYRINGE (J2270) IV PRN (22:55)
[2020-10-11 23:30] VITALS: BP 140/99
[2020-10-11] MEDS: DOCUSATE SODIUM 100MG CAPSULE PO SCH (23:43)
[2020-10-11] MEDS: MAALOX 30 ML SUSP *UDC PO PRN (23:46)
[2020-10-12] MEDS: MAALOX 30 ML SUSP *UDC PO PRN (05:28)
[2020-10-12 06:00] VITALS: BP 129/82
[2020-10-12 07:09] LABS: HEMATOCRIT 45.8 % (42.0-52.0); MEAN CORPUSCULAR HEMOGLOBIN 31.3 pg (27.0-33.0); MEAN CORPUSCULAR VOLUME 94.8 fl (80.0-96.0); PLATELET COUNT, AUTOMATED 323 10^3/uL (150-450); RED BLOOD COUNT 4.83 10^6/uL (4.30-6.10); WHITE BLOOD COUNT 8.6 10^3/uL (4.0-10.0)
[2020-10-12 07:11] LABS: HEMOGLOBIN 15.1 g/dl (13.5-17.5)
[2020-10-12 07:21] LABS: ALBUMIN 3.5 GM/DL (3.2-5.2); ALT/SGPT 21 U/L (12-78); BILIRUBIN,TOTAL 0.7 MG/DL (0.2-1.0); BLOOD UREA NITROGEN 20 MG/DL (7-18); CALCIUM LEVEL 9.7 MG/DL (8.5-10.1); CARBON DIOXIDE LEVEL 24 MEQ/L (21-32); CHLORIDE LEVEL 108 MEQ/L (98-107); CREATININE FOR GFR 0.92 MG/DL (0.70-1.30); GLOMERULAR FILTRATION RATE > 60.0 (>56); GLUCOSE, FASTING 86 MG/DL (70-100); MAGNESIUM LEVEL 2.3 MG/DL (1.8-2.4); POTASSIUM SERUM 4.3 MEQ/L (3.5-5.1); SODIUM LEVEL 139 MEQ/L (136-145); TOTAL PROTEIN 6.4 GM/DL (6.4-8.2)
[2020-10-12] MEDS: GABAPENTIN 300 MG CAP PO SCH ×3 (08:28→20:18)
[2020-10-12] MEDS: ASPIRIN 81MG ENTERIC TABLET PO SCH (08:28)
[2020-10-12] MEDS: DULoxetine 20 MG CAP (CYMBALTA) PO SCH (08:28)
[2020-10-12] MEDS: DOCUSATE SODIUM 100MG CAPSULE PO SCH ×2 (08:29→20:18)
[2020-10-12] MEDS: PANTOPRAZOLE 40MG VIAL (C9113 PER 1) IV SCH (08:29)
[2020-10-12] MEDS: ENOXAPARIN 40MG/0.4ML SYRINGE (J1650 PER 10MG) SC SCH (08:29)
[2020-10-12] MEDS: KCL 20MEQ in NS 1000ML 1,000 ML IV SCH ×3 (08:43→20:18)
[2020-10-12] MEDS: NORCO, ANEXSIA 5/325MG TABLET (HYDROcodone/ACETAMINOPHEN) PO PRN ×2 (10:13→18:13)
--- NOTE | 2020-10-12 10:43 | IPN ---
PROGRESS NOTE DATE: 10/12/2020 SUBJECTIVE: Aaron was admitted with intractable abdominal pain. Looking through the ER record he has had this a few times. The pain is significantly better overnight. He does have history of thoracic aortic aneurysm, was mildly larger on CT of the chest on 08/11/[address] from 02/09/2020. His pain is lower abdominal, periumbilical. No pain in the interscapular area, back chest. OBJECTIVE: VITAL SIGNS: Stable. GENERAL: He is alert, conversant, resting comfortably. HEENT: Unremarkable. LUNGS: Clear. HEART: Regular rhythm, no murmur. EXTREMITIES: Good distal pulses, equal bilateral upper and lower extremities. ABDOMEN: Little tender right of the umbilicus, no rebound. Labs were reviewed and unremarkable. Amylase unremarkable. ASSESSMENT/PLAN: Intractable abdominal pain, symptomatically better. Concerned about the aneurysm. His pain does not have any characteristics of thoracic aneurysm but by report he was very uncomfortable in the emergency room. He also has history of positive cocaine metabolites in his urine in the past and wondering if this might be a factor as well. Getting stat CT angiogram of his chest, urinalysis (history of renal stones, not done by emergency room yesterday) and urine culture. DISPOSITION: Will depend on results of these tests.
[2020-10-12 14:00] VITALS: BP 124/83
[2020-10-12] MEDS ORDERED: ISOVUE-370 76% 100ML VIAL As Ordered ONE (17:13)
--- NOTE | 2020-10-12 18:03 | REPVR ---
PROCEDURE INFORMATION: Exam: CTA Chest With Contrast Exam date and time: 10/12/2020 5:18 PM Age: 55 years old Clinical indication: Cardiovascular condition or disease; Aortic aneurysm; Without rupture; Thoracic; Additional info: Thoracic aneurysm, c/w prior TECHNIQUE: Imaging protocol: Computed tomographic angiography of the chest with contrast. 3D rendering (Not supervised by radiologist): MIP and/or 3D reconstructed images were created by the technologist. Radiation optimization: All CT scans at this facility use at least one of these dose optimization techniques: automated exposure control; mA and/or kV adjustment per patient size (includes targeted exams where dose is matched to clinical indication); or iterative reconstruction. Contrast material: ISOVUE 370; Contrast volume: 75 ml; Contrast route: INTRAVENOUS (IV); COMPARISON: CT ANGIO CHEST - OUTSIDE PRIOR 03/06/2019 12:00 AM FINDINGS: Pulmonary arteries: No focal pulmonary artery filling defect to suggest acute pulmonary embolus. Aorta: No thoracic aortic aneurysm or dissection. Lungs: Pulmonary vascular/interstitial pattern does not suggest active pulmonary edema. Focal scarring in the superior segment right lower lobe is present, similar to the prior CT. Mild dependent bilateral lung atelectasis. No concerning lung lesion, central endobronchial lesion or active airspace process. Pleural spaces: No pleural effusion or pneumothorax. Heart: No overt cardiac enlargement or abnormal volume of pericardial fluid. Lymph nodes: No enlarged mediastinal lymph nodes. Kidneys and ureters: Incompletely imaged large 7 cm simple fluid density right renal cyst. Bones/joints: Old post traumatic and postsurgical changes of the left clavicle are demonstrated. Mild degenerative changes in the glenohumeral joints, and sclerotic focus within the left 7th rib lateral aspect is present, benign and unchanged since February 2019. Soft tissues: No asymmetric abnormality of the extrathoracic soft tissues. IMPRESSION: 1. No evidence of acute pulmonary embolus or thoracic aortic aneurysm or dissection. 2. No other acute or concerning focal intrathoracic abnormality. 3. Scarring in the posterior aspect of the left lower lobe superior segment COMMENTS: Consistent with the [employer]'s Incidental Findings Committee white paper (J Am Jodi Radiol 2018): Any incidental renal lesion less than 1 cm or classified as too small to characterize, or any incidental cystic renal lesion characterized as simple-appearing, is likely benign. No follow-up imaging is recommended for these lesions per consensus recommendations based on imaging criteria. Electronically signed by: Daniel David On 10/12/2020 18:02:53 PM
[2020-10-12] MEDS: MORPHINE 4 MG/ML 1ML VIAL/SYRINGE (J2270) IV PRN (22:42)
[2020-10-13] MEDS: NORCO, ANEXSIA 5/325MG TABLET (HYDROcodone/ACETAMINOPHEN) PO PRN ×2 (00:28→11:04)
[2020-10-13 01:17] LABS: AMPHETAMINES LEVEL URINE NEGATIVE (NEGATIVE); BARBITURATES URINE NEGATIVE (NEGATIVE); BENZODIAZEPINES URINE NEGATIVE (NEGATIVE); CANNABINOIDS URINE NEGATIVE (NEGATIVE); COCAINE METABOLITE URINE POSITIVE (NEGATIVE); METHADONE URINE NEGATIVE (NEGATIVE); OPIATES URINE POSITIVE (NEGATIVE); PHENCYCLIDINE URINE NEGATIVE (NEGATIVE)
[2020-10-13] MEDS: KCL 20MEQ in NS 1000ML 1,000 ML IV SCH ×2 (05:21→09:53)
[2020-10-13] MEDS: MORPHINE 4 MG/ML 1ML VIAL/SYRINGE (J2270) IV PRN (05:22)
[2020-10-13 06:00] VITALS: BP 139/93
[2020-10-13 06:24] LABS: HEMATOCRIT 40.2 % (42.0-52.0); MEAN CORPUSCULAR HGB CONC 32.6 g/dl (32.0-36.5); PLATELET COUNT, AUTOMATED 231 10^3/uL (150-450); WHITE BLOOD COUNT 6.4 10^3/uL (4.0-10.0)
[2020-10-13 06:34] LABS: HEMOGLOBIN 13.1 g/dl (13.5-17.5)
[2020-10-13 06:39] LABS: ALT/SGPT 18 U/L (12-78); BILIRUBIN,TOTAL 0.2 MG/DL (0.2-1.0); BLOOD UREA NITROGEN 22 MG/DL (7-18); CALCIUM LEVEL 8.7 MG/DL (8.5-10.1); CARBON DIOXIDE LEVEL 23 MEQ/L (21-32); CHLORIDE LEVEL 113 MEQ/L (98-107); CREATININE FOR GFR 0.93 MG/DL (0.70-1.30); GLOMERULAR FILTRATION RATE > 60.0 (>56); GLUCOSE, FASTING 84 MG/DL (70-100); POTASSIUM SERUM 4.4 MEQ/L (3.5-5.1); SODIUM LEVEL 142 MEQ/L (136-145)
[2020-10-13 06:40] LABS: ALBUMIN 2.8 GM/DL (3.2-5.2); AMYLASE 115 U/L (25-115); LIPASE 203 U/L (73-393); TOTAL PROTEIN 5.4 GM/DL (6.4-8.2)
[2020-10-13 08:36] VITALS: BP 139/93
[2020-10-13] MEDS: DULoxetine 20 MG CAP (CYMBALTA) PO SCH (08:36)
[2020-10-13] MEDS: DOCUSATE SODIUM 100MG CAPSULE PO SCH (08:36)
[2020-10-13] MEDS: GABAPENTIN 300 MG CAP PO SCH (08:36)
[2020-10-13] MEDS: ASPIRIN 81MG ENTERIC TABLET PO SCH (08:36)
[2020-10-13] MEDS: ENOXAPARIN 40MG/0.4ML SYRINGE (J1650 PER 10MG) SC SCH (08:37)
[2020-10-13] MEDS: PANTOPRAZOLE 40MG VIAL (C9113 PER 1) IV SCH (08:37)
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
== END 2020-10-13 13:26 | disposition home or self-care (01) | DRG 392 ==
LOC: M ED 13:17 → ENRESERV 22:09 → M MS5PR 22:18
PROVIDERS: ADMIT Family Medicine; ATTEND Family Medicine
DX: R10.84 Generalized abdominal pain (principal); I10 Essential (primary) hypertension; E78.5 Hyperlipidemia, unspecified; J43.9 Emphysema, unspecified; Z96.643 Presence of artificial hip joint, bilateral; Z96.653 Presence of artificial knee joint, bilateral; Z96.612 Presence of left artificial shoulder joint; N20.0 Calculus of kidney; F17.210 Nicotine dependence, cigarettes, uncomplicated; Z20.822 Contact with and (suspected) exposure to COVID-19; Z79.82 Long term (current) use of aspirin; Z79.899 Other long term (current) drug therapy; Z91.030 Bee allergy status; F14.10 Cocaine abuse, uncomplicated; Z86.79 Personal history of other diseases of the circulatory system

== ENCOUNTER → 2020-11-10 | Outpatient (CLI) | payer MEDICARE ==
[~2020-11-10] MED LIST changes: +DULO1CAP4 PO; +ECOT81TA5 PO
[2020-11-10 13:09] LABS: BASO # 0.1 10^3/uL (0.0-0.2); BASO % 1.1 % (0.0-1.0); EOS # 0.2 10^3/uL (0.0-0.5); EOS % 4.3 % (0.0-3.0); HEMATOCRIT 45.9 % (42.0-52.0); HEMOGLOBIN 14.6 g/dl (13.5-17.5); LYMPH # 1.6 10^3/uL (1.5-5.0); LYMPH % 29.5 % (24.0-44.0); MEAN CORPUSCULAR HGB CONC 31.8 g/dl (32.0-36.5); MEAN CORPUSCULAR VOLUME 100.7 fl (80.0-96.0); MONO # 0.6 10^3/uL (0.0-0.8); MONO % 11.6 % (2.0-8.0); NEUTROPHILS # 2.8 10^3/uL (1.5-8.5); NEUTROPHILS % 53.1 % (36.0-66.0); PLATELET COUNT, AUTOMATED 294 10^3/uL (150-450); RED BLOOD COUNT 4.56 10^6/uL (4.30-6.10); WHITE BLOOD COUNT 5.4 10^3/uL (4.0-10.0)
[2020-11-10 13:22] LABS: APPEARANCE, URINE CLEAR (CLEAR); BACTERIA, URINE AUTO NEGATIVE (NEGATIVE); BILIRUBIN, URINE AUTO NEGATIVE (NEGATIVE); BLOOD, URINE BLOOD NEGATIVE (NEGATIVE); COLOR, URINE YELLOW (YELLOW); GLUCOSE, URINE (UA) AUTO NEGATIVE (NEGATIVE); KETONE, URINE AUTO TRACE mg/dL (NEGATIVE); LEUKOCYTE ESTERASE, URINE AUTO NEGATIVE (NEGATIVE); MUCUS, URINE SMALL (NEGATIVE); NITRITE, URINE AUTO NEGATIVE (NEGATIVE); PROTEIN, URINE AUTO NEGATIVE (NEGATIVE); RBC, URINE AUTO 0 /HPF (0-3); SPECIFIC GRAVITY URINE AUTO 1.026 (1.002-1.035); SQUAMOUS EPITHELIAL CELL UR AU 0 /HPF (0-6); UROBILINOGEN, URINE AUTO 0.2 mg/dL (0.0-2.0); WBC, URINE AUTO 0 /HPF (0-3)
[2020-11-10 13:38] LABS: BLOOD UREA NITROGEN 19 MG/DL (7-18); CALCIUM LEVEL 9.4 MG/DL (8.5-10.1); CARBON DIOXIDE LEVEL 29 MEQ/L (21-32); CHLORIDE LEVEL 109 MEQ/L (98-107); GLOMERULAR FILTRATION RATE > 60.0 (>56); GLUCOSE, FASTING 81 MG/DL (70-100); POTASSIUM SERUM 5.6 MEQ/L (3.5-5.1); SODIUM LEVEL 140 MEQ/L (136-145)
== END ==
LOC: M LAB 11:50
PROVIDERS: ATTEND Nurse Practitioner Family
DX: Z01.818 Encounter for other preprocedural examination (principal); Z79.82 Long term (current) use of aspirin; Z79.891 Long term (current) use of opiate analgesic

== ENCOUNTER → 2020-11-11 | Outpatient (CLI) | payer MEDICARE ==
[~2020-11-11] MED LIST changes: -CYMB60CA3 PO; +CYMB60CA4 PO; -LISI20TA20 PO; +LISI20TA37 PO
== END ==
LOC: M LAB 16:01
PROVIDERS: ATTEND Nurse Practitioner Family
DX: E87.5 Hyperkalemia (principal)

== ENCOUNTER → 2020-11-14 | Outpatient (CLI) | payer MEDICARE ==
[~2020-11-14] MED LIST changes: +CYMB60CA3 PO; -CYMB60CA4 PO; +LISI20TA20 PO; -LISI20TA37 PO
== END ==
LOC: M LAB 08:18
PROVIDERS: ATTEND Nurse Practitioner Family
DX: E87.5 Hyperkalemia (principal)

== ENCOUNTER → 2021-01-22 | Outpatient (CLI) | payer MEDICARE ==
[2021-01-22 15:09] LABS: BASO # 0.1 10^3/uL (0.0-0.2); BASO % 0.8 % (0.0-1.0); EOS # 0.2 10^3/uL (0.0-0.5); HEMATOCRIT 45.5 % (42.0-52.0); HEMOGLOBIN 14.9 g/dl (13.5-17.5); LYMPH % 26.3 % (24.0-44.0); MEAN CORPUSCULAR HEMOGLOBIN 32.6 pg (27.0-33.0); MEAN CORPUSCULAR HGB CONC 32.7 g/dl (32.0-36.5); MEAN CORPUSCULAR VOLUME 99.6 fl (80.0-96.0); MONO # 0.7 10^3/uL (0.0-0.8); MONO % 8.7 % (2.0-8.0); NEUTROPHILS # 4.6 10^3/uL (1.5-8.5); NEUTROPHILS % 60.7 % (36.0-66.0); PLATELET COUNT, AUTOMATED 312 10^3/uL (150-450); RED BLOOD COUNT 4.57 10^6/uL (4.30-6.10); WHITE BLOOD COUNT 7.6 10^3/uL (4.0-10.0)
[2021-01-22 15:17] LABS: APPEARANCE, URINE CLEAR (CLEAR); BACTERIA, URINE AUTO NEGATIVE (NEGATIVE); BILIRUBIN, URINE AUTO NEGATIVE (NEGATIVE); BLOOD, URINE BLOOD NEGATIVE (NEGATIVE); COLOR, URINE YELLOW (YELLOW); GLUCOSE, URINE (UA) AUTO 1+ mg/dL (NEGATIVE); KETONE, URINE AUTO NEGATIVE (NEGATIVE); LEUKOCYTE ESTERASE, URINE AUTO NEGATIVE (NEGATIVE); MUCUS, URINE SMALL (NEGATIVE); NITRITE, URINE AUTO NEGATIVE (NEGATIVE); PROTEIN, URINE AUTO NEGATIVE (NEGATIVE); RBC, URINE AUTO 0 /HPF (0-3); SPECIFIC GRAVITY URINE AUTO 1.021 (1.002-1.035); SQUAMOUS EPITHELIAL CELL UR AU 0 /HPF (0-6); UROBILINOGEN, URINE AUTO 0.2 mg/dL (0.0-2.0); WBC, URINE AUTO 0 /HPF (0-3)
[2021-01-22 15:36] LABS: ERYTHROCYTE SEDIMENTATION RATE 9 mm/hr (0-20)
[2021-01-22 15:46] LABS: ALBUMIN 3.5 GM/DL (3.2-5.2); ALT/SGPT 35 U/L (12-78); BILIRUBIN,DIRECT 0.1 MG/DL (0.0-0.2); BILIRUBIN,TOTAL 0.4 MG/DL (0.2-1.0); BLOOD UREA NITROGEN 26 MG/DL (7-18); C REACTIVE PROTEIN QUANTITATIV 0.37 MG/DL (0.00-0.30); CALCIUM LEVEL 9.3 MG/DL (8.5-10.1); CARBON DIOXIDE LEVEL 26 MEQ/L (21-32); CHLORIDE LEVEL 111 MEQ/L (98-107); CHOLESTEROL LEVEL 108 MG/DL (<200); CHOLESTEROL RISK RATIO 2.918 (<5); CREATININE FOR GFR 1.28 MG/DL (0.70-1.30); FREE T4 1.03 NG/DL (0.76-1.46); GLOMERULAR FILTRATION RATE > 60.0 (>56); GLUCOSE, FASTING 115 MG/DL (70-100); HDL CHOLESTEROL 37 MG/DL (>40); LDH LACTATE DEHYDROGENASE 209 U/L (87-241); LDL CHOLESTEROL 47 MG/DL (<100); MAGNESIUM LEVEL 1.7 MG/DL (1.8-2.4); NON-HDL-C 71 MG/DL; POTASSIUM SERUM 4.5 MEQ/L (3.5-5.1); SODIUM LEVEL 142 MEQ/L (136-145); TRIGLYCERIDES LEVEL 122 MG/DL (<150)
[2021-01-22 16:11] LABS: HEMOGLOBIN A1c 5.2 %
== END ==
LOC: M LAB 14:31
PROVIDERS: ATTEND Nurse Practitioner Family
DX: R63.4 Abnormal weight loss (principal); Z79.899 Other long term (current) drug therapy
CPT/HCPCS: 36415; 80053; 80061; 81001; 82248; 83036; 83615; 83735; 84439; 84443; 85025; 85652; 86140; 87086; G0103

== ENCOUNTER → 2021-01-23 | Outpatient (REF) | payer MEDICARE ==
[~2021-01-23] MED LIST changes: -CYMB60CA3 PO; +CYMB60CA4 PO
== END ==
LOC: M LAB REF 18:23
PROVIDERS: ATTEND Nurse Practitioner Family
DX: R63.4 Abnormal weight loss (principal)

== ENCOUNTER → 2021-01-29 | Outpatient (CLI) | payer MEDICARE ==
[~2021-01-29] MED LIST changes: +ISOVUE-370 76% 100ML VIAL As Ordered ONE
--- NOTE | 2021-01-29 13:29 | REP ---
INDICATION: F/U PULMONARY NODULES COMPARISON: Multiple the latest 10/12/2020 a contrast-enhanced exam CT angio chest. TECHNIQUE: Standard helical technique after the intravenous administration of 100 cc Isovue 370 FINDINGS: There is no mediastinal or hilar adenopathy. There are no pleural or pericardial effusions. The imaged osseous structures are unchanged. The imaged upper abdomen is unchanged. Once again, there is partially imaged right renal cyst Evaluation of the lung [place] shows significant improvement in the asymmetric density seen previously in the superior segment of the right lower lobe. This region is less dense compared to prior exams. There is biapical pleuroparenchymal scarring status quo. There is an unchanged nodule in the left lower lobe abutting the major fissure. Just medial to this and inferiorly there is an additional nodule within the major fissure which is also unchanged. There is a 5 mm sized pleural base nodule in the left lower lobe which is stable. No new abnormal nodules, masses, or opacities have developed. IMPRESSION: There is no evidence of acute disease. There are stable nodules as described above. The asymmetric density seen previously in the superior segment the right lower lobe is much less dense and has more of a ground-glass appearance. Although less dense, since it has changed in appearance I would recommend a short interval six-month follow-up. <Electronically signed by Byron Cherry > 01/29/21 [id number]
== END ==
LOC: M RAD 10:29
PROVIDERS: ATTEND Nurse Practitioner Family
DX: R91.1 Solitary pulmonary nodule (principal); R91.8 Other nonspecific abnormal finding of lung field
CPT/HCPCS: 71260; Q9967

== ENCOUNTER → 2021-05-10 | Outpatient (CLI) | payer MEDICARE ==
[~2021-05-10] MED LIST changes: -ISOVUE-370 76% 100ML VIAL As Ordered ONE; -LISI20TA20 PO; +LISI20TA37 PO
== END ==
LOC: M RAD 12:17
PROVIDERS: ATTEND Nurse Practitioner Family
DX: M25.521 Pain in right elbow (principal)

== ENCOUNTER → 2021-08-14 | Outpatient (CLI) | payer MEDICARE | LOC: M RAD 11:37 | PROVIDERS: ATTEND Internal Medicine Pulmonary Disease | DX: R91.8 Other nonspecific abnormal finding of lung field (principal); J43.9 Emphysema, unspecified; F17.218 Nicotine dependence, cigarettes, with other nicotine-induced disorders; N28.1 Cyst of kidney, acquired ==

== ENCOUNTER → 2021-09-16 | Outpatient (REF) | payer MEDICARE ==
[2021-09-16 17:38] LABS: BASO # 0.1 10^3/uL (0.0-0.2); BASO % 0.9 % (0.0-1.0); EOS # 0.2 10^3/uL (0.0-0.5); EOS % 3.5 % (0.0-3.0); HEMATOCRIT 42.9 % (42.0-52.0); HEMOGLOBIN 13.9 g/dl (13.5-17.5); LYMPH # 1.9 10^3/uL (1.5-5.0); LYMPH % 27.5 % (24.0-44.0); MEAN CORPUSCULAR HEMOGLOBIN 31.4 pg (27.0-33.0); MEAN CORPUSCULAR HGB CONC 32.4 g/dl (32.0-36.5); MEAN CORPUSCULAR VOLUME 96.8 fl (80.0-96.0); MONO # 0.7 10^3/uL (0.0-0.8); MONO % 9.5 % (2.0-8.0); NEUTROPHILS # 4.1 10^3/uL (1.5-8.5); NEUTROPHILS % 58.3 % (36.0-66.0); PLATELET COUNT, AUTOMATED 326 10^3/uL (150-450); RED BLOOD COUNT 4.43 10^6/uL (4.30-6.10); WHITE BLOOD COUNT 6.9 10^3/uL (4.0-10.0)
[2021-09-16 18:02] LABS: ALBUMIN 3.7 GM/DL (3.2-5.2); ALT/SGPT 35 U/L (12-78); BILIRUBIN,TOTAL 0.3 MG/DL (0.2-1.0); BLOOD UREA NITROGEN 19 MG/DL (7-18); CALCIUM LEVEL 9.9 MG/DL (8.5-10.1); CARBON DIOXIDE LEVEL 25 MEQ/L (21-32); CHLORIDE LEVEL 108 MEQ/L (98-107); CREATININE FOR GFR 0.88 MG/DL (0.70-1.30); GLOMERULAR FILTRATION RATE > 60.0 (>56); GLUCOSE, FASTING 89 MG/DL (70-100); POTASSIUM SERUM 4.6 MEQ/L (3.5-5.1); RHEUMATOID FACTOR QUANT < 10.0 IU/ML (<15.0); SODIUM LEVEL 140 MEQ/L (136-145); URIC ACID 4.8 MG/DL (3.5-7.2)
[2021-09-16 19:50] LABS: ERYTHROCYTE SEDIMENTATION RATE 10 mm/hr (0-20)
[2021-09-24 17:09] LABS: ANA (HEP2) Negative (.); CYCLIC CITRULLINATED PEPTIDE 4 units (0-19); HLA-B27 Negative (.); SSA SJOGRENS A <0.2 AI (0.0-0.9); SSB SJOGRENS B <0.2 AI (0.0-0.9)
== END ==
LOC: M SFHCRHEU 12:35
PROVIDERS: ATTEND Internal Medicine Rheumatology
DX: M35.3 Polymyalgia rheumatica (principal); M15.9 Polyosteoarthritis, unspecified; I73.00 Raynaud's syndrome without gangrene

== ENCOUNTER 2021-09-30 00:12 | Emergency (ER) | payer MEDICARE ==
[~2021-09-30] VITALS: Ht 180.3 cm; Wt 85.7 kg
[2021-09-30 00:13] VITALS: BP 171/93
== END 2021-09-30 02:50 | disposition left against medical advice (07) ==
LOC: M ED 00:12
DX: Z53.29 Procedure and treatment not carried out because of patient's decision for other reasons (principal)

== ENCOUNTER 2022-06-25 18:58 | Emergency (ER) | payer MEDICARE ==
[~2022-06-25] VITALS: Ht 180.3 cm; Wt 77.8 kg
[~2022-06-25 18:58] MED LIST changes: -DOXY-350 PO; +DOXY-444 PO
[2022-06-25 18:59] VITALS: BP 180/100
[2022-06-25 21:46] LABS: BASO % 0.4 % (0.0-1.0); HEMATOCRIT 50.1 % (42.0-52.0); HEMOGLOBIN 17.3 g/dl (13.5-17.5); LYMPH # 0.5 10^3/uL (1.5-5.0); LYMPH % 6.5 % (24.0-44.0); MEAN CORPUSCULAR HEMOGLOBIN 32.6 pg (27.0-33.0); MEAN CORPUSCULAR HGB CONC 34.5 g/dl (32.0-36.5); MEAN CORPUSCULAR VOLUME 94.4 fl (80.0-96.0); MONO # 0.2 10^3/uL (0.0-0.8); MONO % 3.1 % (2.0-8.0); NEUTROPHILS % 89.6 % (36.0-66.0); PLATELET COUNT, AUTOMATED 327 10^3/uL (150-450); RED BLOOD COUNT 5.31 10^6/uL (4.30-6.10); WHITE BLOOD COUNT 7.8 10^3/uL (4.0-10.0)
[2022-06-25 22:00] LABS: INR 1.01; PROTHROMBIN TIME 13.5 SECONDS (12.5-14.5)
[2022-06-25 22:18] LABS: CK-MB VALUE MASS 1.9 NG/ML (<3.6); LIPASE 28 U/L (12-53)
[2022-06-25 22:19] LABS: AMYLASE 108 U/L (30-118); CPK CREATINE PHOSPHOKINASE 138 U/L (46-171); MB/CK RELATIVE INDEX 1.37 (< OR =4)
[2022-06-25 22:20] LABS: ALBUMIN 4.6 G/DL (3.2-5.2); ALKALINE PHOSPHATASE 139 U/L (46-116); ALT/SGPT 28 U/L (7.0-40); AST/SGOT 22 U/L (<34); BILIRUBIN,DIRECT 0.4 MG/DL (<0.4); BILIRUBIN,TOTAL 1.2 MG/DL (0.3-1.2); BLOOD UREA NITROGEN 14 MG/DL (9-23); CALCIUM LEVEL 10.9 MG/DL (8.5-10.1); CARBON DIOXIDE LEVEL 23 MMOL/L (20-31); CHLORIDE LEVEL 103 MMOL/L (98-107); CREATININE FOR GFR 0.85 MG/DL (0.70-1.30); GLOMERULAR FILTRATION RATE > 60.0 (>56); GLUCOSE, FASTING 105 MG/DL (60-100); POTASSIUM SERUM 4.5 MMOL/L (3.5-5.1); SODIUM LEVEL 137 MMOL/L (136-145); TOTAL PROTEIN 7.8 G/DL (5.7-8.2)
== END 2022-06-26 00:18 | disposition left against medical advice (07) ==
LOC: M ED 18:58
DX: R11.10 Vomiting, unspecified (principal); Z53.21 Procedure and treatment not carried out due to patient leaving prior to being seen by health care provider

== ENCOUNTER → 2022-09-08 | Outpatient (CLI) | payer MEDICARE ==
[~2022-09-08] MED LIST changes: +DOCU-153 PO; +DULO1CAP6 PO; +GABA600T4 PO
[2022-09-08 18:32] LABS: BASO # 0.1 10^3/uL (0.0-0.2); BASO % 1.1 % (0.0-1.0); EOS # 0.4 10^3/uL (0.0-0.5); EOS % 7.6 % (0.0-3.0); HEMATOCRIT 41.4 % (42.0-52.0); HEMOGLOBIN 13.9 g/dl (13.5-17.5); LYMPH # 1.6 10^3/uL (1.5-5.0); LYMPH % 27.8 % (24.0-44.0); MEAN CORPUSCULAR HEMOGLOBIN 33.2 pg (27.0-33.0); MEAN CORPUSCULAR HGB CONC 33.6 g/dl (32.0-36.5); MEAN CORPUSCULAR VOLUME 98.8 fl (80.0-96.0); MONO # 0.5 10^3/uL (0.0-0.8); MONO % 8.6 % (2.0-8.0); NEUTROPHILS # 3.1 10^3/uL (1.5-8.5); NEUTROPHILS % 54.7 % (36.0-66.0); PLATELET COUNT, AUTOMATED 282 10^3/uL (150-450); RED BLOOD COUNT 4.19 10^6/uL (4.30-6.10); WHITE BLOOD COUNT 5.7 10^3/uL (4.0-10.0)
[2022-09-08 18:39] LABS: APPEARANCE, URINE HAZY (CLEAR); BACTERIA, URINE AUTO NEGATIVE (NEGATIVE); BILIRUBIN, URINE AUTO NEGATIVE (NEGATIVE); BLOOD, URINE BLOOD NEGATIVE (NEGATIVE); CALCIUM OXALATE CRYSTALS SMALL; COLOR, URINE YELLOW (YELLOW); GLUCOSE, URINE (UA) AUTO NEGATIVE (NEGATIVE); KETONE, URINE AUTO NEGATIVE (NEGATIVE); LEUKOCYTE ESTERASE, URINE AUTO NEGATIVE (NEGATIVE); MUCUS, URINE SMALL (NEGATIVE); NITRITE, URINE AUTO NEGATIVE (NEGATIVE); PROTEIN, URINE AUTO NEGATIVE (NEGATIVE); RBC, URINE AUTO 2 /HPF (0-3); SPECIFIC GRAVITY URINE AUTO 1.025 (1.002-1.035); SQUAMOUS EPITHELIAL CELL UR AU 0 /HPF (0-6); UROBILINOGEN, URINE AUTO 0.2 mg/dL (0.0-2.0); WBC, URINE AUTO 1 /HPF (0-3)
[2022-09-08 18:47] LABS: ERYTHROCYTE SEDIMENTATION RATE 17 mm/hr (0-20)
[2022-09-08 19:06] LABS: LDH LACTATE DEHYDROGENASE 231 U/L (120-246)
[2022-09-08 19:07] LABS: ALKALINE PHOSPHATASE 127 U/L (46-116); ALT/SGPT 33 U/L (7.0-40); AST/SGOT 26 U/L (<34); BILIRUBIN,DIRECT 0.1 MG/DL (<0.4); BILIRUBIN,TOTAL 0.3 MG/DL (0.3-1.2); BLOOD UREA NITROGEN 21 MG/DL (9-23); C REACTIVE PROTEIN QUANTITATIV < 0.40 MG/DL (<1.0); CARBON DIOXIDE LEVEL 24 MMOL/L (20-31); CHLORIDE LEVEL 110 MMOL/L (98-107); CHOLESTEROL LEVEL 110 MG/DL (<200); CHOLESTEROL RISK RATIO 2.46 (<5); CREATININE FOR GFR 0.78 MG/DL (0.70-1.30); GLOMERULAR FILTRATION RATE > 60.0 (>56); GLUCOSE, FASTING 89 MG/DL (60-100); HDL CHOLESTEROL 44.6 MG/DL (>40); LDL CHOLESTEROL 52.8 MG/DL (<100); MAGNESIUM LEVEL 1.9 MG/DL (1.8-2.4); NON-HDL-C 65.4 MG/DL; POTASSIUM SERUM 4.2 MMOL/L (3.5-5.1); SODIUM LEVEL 143 MMOL/L (136-145); TOTAL PROTEIN 6.7 G/DL (5.7-8.2); TRIGLYCERIDES LEVEL 63 MG/DL (<150)
[2022-09-08 19:09] LABS: TOTAL 25(OH) VITAMIN D 13.7 NG/ML (20.0-100.0)
== END ==
LOC: M LAB 16:59
PROVIDERS: ATTEND Nurse Practitioner Family
DX: R63.4 Abnormal weight loss (principal); I10 Essential (primary) hypertension; E55.9 Vitamin D deficiency, unspecified; Z79.899 Other long term (current) drug therapy
CPT/HCPCS: 36415; 80053; 80061; 81001; 82248; 82306; 82977; 83036; 83615; 83735; 84439; 84443; 85025; 85652; 86140; 87086; G0103

== ENCOUNTER 2022-09-12 01:35 | Observation (INO) | payer MEDICARE ==
[2022-09-12] VITALS (25 sets, daily range): BP systolic 112–200; BP diastolic 58–117; TEMP 99.6–99.7; O2SAT 96–99
[~2022-09-12] VITALS: Ht 180.3 cm; Wt 70.8 kg
[~2022-09-12 01:35] MED LIST changes: -DOCU-153 PO; -DULO1CAP6 PO; -GABA600T4 PO
[2022-09-12 02:11] LABS: BASO % 0.5 % (0.0-1.0); EOS # 0.1 10^3/uL (0.0-0.5); EOS % 1.8 % (0.0-3.0); HEMATOCRIT 42.2 % (42.0-52.0); HEMOGLOBIN 14.1 g/dl (13.5-17.5); LYMPH # 1.3 10^3/uL (1.5-5.0); LYMPH % 16.6 % (24.0-44.0); MEAN CORPUSCULAR HEMOGLOBIN 32.8 pg (27.0-33.0); MEAN CORPUSCULAR HGB CONC 33.4 g/dl (32.0-36.5); MEAN CORPUSCULAR VOLUME 98.1 fl (80.0-96.0); MONO # 0.6 10^3/uL (0.0-0.8); MONO % 8.1 % (2.0-8.0); NEUTROPHILS # 5.7 10^3/uL (1.5-8.5); NEUTROPHILS % 72.6 % (36.0-66.0); PLATELET COUNT, AUTOMATED 282 10^3/uL (150-450); WHITE BLOOD COUNT 7.9 10^3/uL (4.0-10.0)
[2022-09-12 02:37] LABS: ALBUMIN 3.6 G/DL (3.2-5.2); ALKALINE PHOSPHATASE 118 U/L (46-116); ALT/SGPT 26 U/L (7.0-40); AST/SGOT 14 U/L (<34); BILIRUBIN,TOTAL 0.3 MG/DL (0.3-1.2); BLOOD UREA NITROGEN 25 MG/DL (9-23); CALCIUM LEVEL 9.1 MG/DL (8.5-10.1); CARBON DIOXIDE LEVEL 23 MMOL/L (20-31); CHLORIDE LEVEL 108 MMOL/L (98-107); GLOMERULAR FILTRATION RATE > 60.0 (>56); GLUCOSE, FASTING 156 MG/DL (60-100); POTASSIUM SERUM 4.5 MMOL/L (3.5-5.1); SODIUM LEVEL 138 MMOL/L (136-145); TOTAL PROTEIN 6.2 G/DL (5.7-8.2)
[2022-09-12] MEDS ORDERED: NS 1,000 ML IV ONE (04:05)
[2022-09-12] MEDS ORDERED: ONDANSETRON 4MG 2ML VIAL IV ONE (04:05)
[2022-09-12] MEDS ORDERED: KETOROLAC 30 MG/ML 1ML VIAL IV ONE (05:00)
[2022-09-12] MEDS ORDERED: hydrALAZINE 20MG/ML 1ML VIAL IV STA ×3 (05:28→16:43)
[2022-09-12] MEDS ORDERED: MORPHINE 2 MG/ML 1ML VIAL IV ONE (06:25)
[2022-09-12] MEDS ORDERED: METOCLOPRAMIDE INJ 10MG/2ML VIAL IV ONE (07:00)
[2022-09-12] MEDS ORDERED: MORPHINE 4 MG/ML 1ML VIAL IV ONE (07:55)
[2022-09-12] MEDS: HYDROMORPHONE HCL 0.5 MG/ 0.5 ML SYRINGE IV PRN ×2 (08:16→09:14)
[2022-09-12 08:45] LABS: RSV AMPLIFICATION NEGATIVE (NEGATIVE)
[2022-09-12] MEDS ORDERED: GABA600T4 PO (08:54)
[2022-09-12] MEDS ORDERED: DULO1CAP6 PO (08:54)
[2022-09-12] MEDS ORDERED: DOCU-153 PO (08:55)
[2022-09-12] MEDS ORDERED: HOME MED LIST COMPLETE! XX SCH (08:55)
[2022-09-12] MEDS: GASTROGRAFIN SOLUTION 30ML PO SCH ×2 (10:21→11:02)
[2022-09-12] MEDS ORDERED: LABETALOL 100MG/20ML VIAL IV STA ×2 (10:47→12:27)
[2022-09-12] MEDS ORDERED: LORazepam 2 MG TAB PO STA (11:16)
[2022-09-12] MEDS ORDERED: ISOVUE-370 76% 100ML VIAL As Ordered ONE (11:59)
[2022-09-12 12:13] LABS: AMPHETAMINES URINE REFLEX NEGATIVE (NEGATIVE); BARBITURATES URINE REFLEX NEGATIVE (NEGATIVE); METHADONE URINE REFLEX NEGATIVE (NEGATIVE); PHENCYCLIDINE URINE REFLEX NEGATIVE (NEGATIVE)
[2022-09-12 12:16] LABS: BENZODIAZEPINES URINE REFLEX PENDING CONFIRMATION (NEGATIVE)
[2022-09-12 12:17] LABS: CANNABINOIDS URINE REFLEX PENDING CONFIRMATION (NEGATIVE); COCAINE METABOLITE URINE REFLE PENDING CONFIRMATION (NEGATIVE); OPIATES URINE REFLEX PENDING CONFIRMATION (NEGATIVE)
[2022-09-12] MEDS ORDERED: methylPREDNISolone 125MG 2ML VIAL IV ONE (13:20)
[2022-09-12] MEDS ORDERED: MORPHINE 4 MG/ML 1ML VIAL IV PRN (14:05)
[2022-09-12] MEDS ORDERED: LORazepam 2 MG TAB PO PRN (14:05)
[2022-09-12] MEDS ORDERED: hydrALAZINE 20MG/ML 1ML VIAL IV PRN ×3 (14:05→17:55)
[2022-09-12] MEDS ORDERED: MORPHINE 2 MG/ML 1ML VIAL IV PRN (14:05)
[2022-09-12] MEDS ORDERED: MIRALAX *UNIT DOSE* 17GM PACKET PO PRN (14:25)
[2022-09-12] MEDS ORDERED: ALBUTEROL 90 MCG/ACT 8GM HFA INHALER INH PRN (14:35)
[2022-09-12] MEDS ORDERED: NALOXONE INJ 0.4MG/1ML VIAL IV PRN (14:40)
[2022-09-12] MEDS ORDERED: amLODIPine 5 MG TAB PO ONE (14:45)
[2022-09-12] MEDS: PANTOPRAZOLE 40MG VIAL IV SCH (15:38)
[2022-09-12] MEDS: DULoxetine 30MG CAPSULE (CYMBALTA) PO SCH (15:39)
[2022-09-12] MEDS: GABAPENTIN 300 MG CAP PO SCH ×2 (15:39→20:53)
[2022-09-12] MEDS: LORazepam 2 MG/ML 1ML VIAL IV PRN ×4 (15:39→20:44)
[2022-09-12] MEDS: ASPIRIN 81MG ENTERIC TABLET PO SCH (15:39)
[2022-09-12] MEDS: THIAMINE 100 MG TAB PO SCH ×2 (15:40→21:00)
[2022-09-12] MEDS: FOLIC ACID 1MG TAB PO SCH (15:40)
[2022-09-12] MEDS: NICOTINE 21MG/24HR 1 EA TRANSDERMAL TD SCH (16:07)
[2022-09-12] MEDS: NS 1,000 ML IV SCH (18:28)
[2022-09-12] MEDS: niCARdipine IV 40 MG in IV 1 EA IV SCH (19:12)
[2022-09-12] MEDS: DOCUSATE SODIUM 100MG CAPSULE PO SCH (20:53)
[2022-09-12] MEDS: SENNA 8.6 MG TAB (SENOKOT) PO SCH (20:53)
[2022-09-12] MEDS ORDERED: HALOPERIDOL 5MG/ML 1ML VIAL IM STA (20:57)
[2022-09-12] MEDS ORDERED: THIAMINE 200MG 2ML VIAL IM ONE (22:00)
[2022-09-13] VITALS (49 sets, daily range): BP systolic 115–182; BP diastolic 59–104; TEMP 97.7–100.3; O2SAT 92–99
[2022-09-13] MEDS: LORazepam 2 MG/ML 1ML VIAL IV PRN ×5 (01:12→16:34)
[2022-09-13] MEDS: niCARdipine IV 40 MG in IV 1 EA IV SCH ×2 (01:55→06:47)
[2022-09-13] MEDS: NS 1,000 ML IV SCH (07:43)
[2022-09-13 08:09] LABS: HEMATOCRIT 45.9 % (42.0-52.0); HEMOGLOBIN 15.5 g/dl (13.5-17.5); MEAN CORPUSCULAR HEMOGLOBIN 32.4 pg (27.0-33.0); MEAN CORPUSCULAR HGB CONC 33.8 g/dl (32.0-36.5); PLATELET COUNT, AUTOMATED 304 10^3/uL (150-450); RED BLOOD COUNT 4.78 10^6/uL (4.30-6.10); WHITE BLOOD COUNT 9.4 10^3/uL (4.0-10.0)
[2022-09-13 08:31] LABS: ALBUMIN 3.8 G/DL (3.2-5.2); ALKALINE PHOSPHATASE 98 U/L (46-116); ALT/SGPT 25 U/L (7.0-40); AST/SGOT 20 U/L (<34); BILIRUBIN,TOTAL 0.8 MG/DL (0.3-1.2); BLOOD UREA NITROGEN 15 MG/DL (9-23); CALCIUM LEVEL 9.5 MG/DL (8.5-10.1); CARBON DIOXIDE LEVEL 22 MMOL/L (20-31); CHLORIDE LEVEL 106 MMOL/L (98-107); CREATININE FOR GFR 0.64 MG/DL (0.70-1.30); GLOMERULAR FILTRATION RATE > 60.0 (>56); GLUCOSE, FASTING 114 MG/DL (60-100); POTASSIUM SERUM 4.2 MMOL/L (3.5-5.1); SODIUM LEVEL 136 MMOL/L (136-145); TOTAL PROTEIN 6.8 G/DL (5.7-8.2)
[2022-09-13] MEDS: THIAMINE 100 MG TAB PO SCH ×2 (08:41→20:05)
[2022-09-13] MEDS: DOCUSATE SODIUM 100MG CAPSULE PO SCH ×2 (08:41→20:05)
[2022-09-13] MEDS: ASPIRIN 81MG ENTERIC TABLET PO SCH (08:41)
[2022-09-13] MEDS: FOLIC ACID 1MG TAB PO SCH (08:41)
[2022-09-13] MEDS: NICOTINE 21MG/24HR 1 EA TRANSDERMAL TD SCH (08:41)
[2022-09-13] MEDS: GABAPENTIN 300 MG CAP PO SCH ×3 (08:41→20:05)
[2022-09-13] MEDS: MULTIVITAMINS/MINERALS THERAP 1 TAB PO SCH (08:41)
[2022-09-13] MEDS: ENOXAPARIN 40MG/0.4ML SYRINGE (J1650 PER 10MG) SC SCH (08:42)
[2022-09-13] MEDS: amLODIPine 5 MG TAB PO SCH (08:42)
[2022-09-13] MEDS: DULoxetine 30MG CAPSULE (CYMBALTA) PO SCH (08:42)
[2022-09-13] MEDS ORDERED: DOCUSATE SODIUM 100MG CAPSULE PO SCH (09:00)
[2022-09-13] MEDS ORDERED: ISOVUE-370 76% 100ML VIAL As Ordered ONE (12:44)
[2022-09-13] MEDS: PANTOPRAZOLE 40MG VIAL IV SCH (13:53)
[2022-09-13] MEDS: SENNA 8.6 MG TAB (SENOKOT) PO SCH (20:04)
[2022-09-13] MEDS: ACETAMINOPHEN TAB 650MG DOSE (2X325MG) PO PRN (20:04)
[2022-09-14] VITALS (17 sets, daily range): BP systolic 127–166; BP diastolic 84–102; TEMP 97.2–99.2; O2SAT 96–100
[2022-09-14] MEDS: LORazepam 2 MG/ML 1ML VIAL IV PRN (02:50)
[2022-09-14 05:38] LABS: HEMATOCRIT 47.8 % (42.0-52.0); HEMOGLOBIN 16.1 g/dl (13.5-17.5); MEAN CORPUSCULAR HEMOGLOBIN 32.8 pg (27.0-33.0); MEAN CORPUSCULAR HGB CONC 33.7 g/dl (32.0-36.5); MEAN CORPUSCULAR VOLUME 97.4 fl (80.0-96.0); PLATELET COUNT, AUTOMATED 329 10^3/uL (150-450); RED BLOOD COUNT 4.91 10^6/uL (4.30-6.10); WHITE BLOOD COUNT 8.1 10^3/uL (4.0-10.0)
[2022-09-14 06:18] LABS: ALBUMIN 3.9 G/DL (3.2-5.2); ALKALINE PHOSPHATASE 103 U/L (46-116); ALT/SGPT 22 U/L (7.0-40); AST/SGOT 15 U/L (<34); BILIRUBIN,TOTAL 0.9 MG/DL (0.3-1.2); BLOOD UREA NITROGEN 24 MG/DL (9-23); CALCIUM LEVEL 10.3 MG/DL (8.5-10.1); CARBON DIOXIDE LEVEL 25 MMOL/L (20-31); CHLORIDE LEVEL 107 MMOL/L (98-107); CREATININE FOR GFR 0.74 MG/DL (0.70-1.30); GLOMERULAR FILTRATION RATE > 60.0 (>56); GLUCOSE, FASTING 99 MG/DL (60-100); POTASSIUM SERUM 4.8 MMOL/L (3.5-5.1); SODIUM LEVEL 138 MMOL/L (136-145); TOTAL PROTEIN 6.7 G/DL (5.7-8.2)
[2022-09-14] MEDS: ENOXAPARIN 40MG/0.4ML SYRINGE (J1650 PER 10MG) SC SCH (08:50)
[2022-09-14] MEDS: DOCUSATE SODIUM 100MG CAPSULE PO SCH ×2 (08:50→21:21)
[2022-09-14] MEDS: THIAMINE 100 MG TAB PO SCH ×2 (08:50→21:21)
[2022-09-14] MEDS: NICOTINE 21MG/24HR 1 EA TRANSDERMAL TD SCH (08:50)
[2022-09-14] MEDS: GABAPENTIN 300 MG CAP PO SCH ×3 (08:51→21:21)
[2022-09-14] MEDS: ASPIRIN 81MG ENTERIC TABLET PO SCH (08:51)
[2022-09-14] MEDS: MULTIVITAMINS/MINERALS THERAP 1 TAB PO SCH (08:51)
[2022-09-14] MEDS: DULoxetine 30MG CAPSULE (CYMBALTA) PO SCH (08:51)
[2022-09-14] MEDS: amLODIPine 5 MG TAB PO SCH (08:51)
[2022-09-14] MEDS: FOLIC ACID 1MG TAB PO SCH (08:51)
[2022-09-14] MEDS: ACETAMINOPHEN TAB 650MG DOSE (2X325MG) PO PRN (12:46)
[2022-09-14] MEDS: PANTOPRAZOLE 40MG VIAL IV SCH (15:18)
[2022-09-14] MEDS: SENNA 8.6 MG TAB (SENOKOT) PO SCH (21:21)
[2022-09-14] MEDS: LORazepam 2 MG TAB PO PRN (21:22)
[2022-09-15] VITALS (12 sets, daily range): BP systolic 133–170; BP diastolic 79–96; TEMP 97.5–98.6; O2SAT 93–99
[2022-09-15] MEDS: ACETAMINOPHEN TAB 650MG DOSE (2X325MG) PO PRN (01:23)
[2022-09-15] MEDS: LORazepam 2 MG TAB PO PRN ×4 (01:23→20:36)
[2022-09-15 05:45] LABS: HEMATOCRIT 48.7 % (42.0-52.0); HEMOGLOBIN 16.3 g/dl (13.5-17.5); MEAN CORPUSCULAR HEMOGLOBIN 32.6 pg (27.0-33.0); MEAN CORPUSCULAR HGB CONC 33.5 g/dl (32.0-36.5); MEAN CORPUSCULAR VOLUME 97.4 fl (80.0-96.0); PLATELET COUNT, AUTOMATED 314 10^3/uL (150-450)
[2022-09-15 07:33] LABS: ALBUMIN 3.8 G/DL (3.2-5.2); ALKALINE PHOSPHATASE 108 U/L (46-116); ALT/SGPT 27 U/L (7.0-40); AST/SGOT 14 U/L (<34); BILIRUBIN,TOTAL 0.7 MG/DL (0.3-1.2); BLOOD UREA NITROGEN 22 MG/DL (9-23); CALCIUM LEVEL 10.3 MG/DL (8.5-10.1); CARBON DIOXIDE LEVEL 25 MMOL/L (20-31); CHLORIDE LEVEL 105 MMOL/L (98-107); CREATININE FOR GFR 0.76 MG/DL (0.70-1.30); GLOMERULAR FILTRATION RATE > 60.0 (>56); GLUCOSE, FASTING 91 MG/DL (60-100); POTASSIUM SERUM 4.5 MMOL/L (3.5-5.1); SODIUM LEVEL 137 MMOL/L (136-145); TOTAL PROTEIN 6.7 G/DL (5.7-8.2)
[2022-09-15] MEDS: ONDANSETRON 4MG 2ML VIAL IV PRN (09:37)
[2022-09-15] MEDS: ASPIRIN 81MG ENTERIC TABLET PO SCH (09:37)
[2022-09-15] MEDS: GABAPENTIN 300 MG CAP PO SCH ×3 (09:37→20:09)
[2022-09-15] MEDS: DULoxetine 30MG CAPSULE (CYMBALTA) PO SCH (09:37)
[2022-09-15] MEDS: FOLIC ACID 1MG TAB PO SCH (09:38)
[2022-09-15] MEDS: amLODIPine 5 MG TAB PO SCH (09:38)
[2022-09-15] MEDS: MULTIVITAMINS/MINERALS THERAP 1 TAB PO SCH (09:38)
[2022-09-15] MEDS: ENOXAPARIN 40MG/0.4ML SYRINGE (J1650 PER 10MG) SC SCH (09:39)
[2022-09-15] MEDS: NICOTINE 21MG/24HR 1 EA TRANSDERMAL TD SCH (09:39)
[2022-09-15] MEDS ORDERED: amLODIPine 5 MG TAB PO ONE (09:45)
[2022-09-15] MEDS: CEPHALEXIN 500 MG CAP PO SCH ×2 (11:35→18:31)
[2022-09-15] MEDS: LACTOBACILLUS ACIDOPHILUS CAP (BACID) PO SCH ×2 (11:35→18:31)
[2022-09-15] MEDS: PANTOPRAZOLE 40MG VIAL IV SCH (14:25)
[2022-09-16] VITALS (7 sets, daily range): BP systolic 128–138; BP diastolic 79–92; TEMP 98.1–98.8; O2SAT 94–96
[2022-09-16] MEDS: CEPHALEXIN 500 MG CAP PO SCH ×4 (00:52→17:56)
[2022-09-16] MEDS: RAMELTEON 8 MG TAB (ROZEREM) PO PRN (02:44)
[2022-09-16 06:08] LABS: HEMOGLOBIN 15.7 g/dl (13.5-17.5); MEAN CORPUSCULAR HEMOGLOBIN 32.3 pg (27.0-33.0); MEAN CORPUSCULAR HGB CONC 33.4 g/dl (32.0-36.5); MEAN CORPUSCULAR VOLUME 96.7 fl (80.0-96.0); PLATELET COUNT, AUTOMATED 339 10^3/uL (150-450); RED BLOOD COUNT 4.86 10^6/uL (4.30-6.10); WHITE BLOOD COUNT 8.6 10^3/uL (4.0-10.0)
[2022-09-16 07:07] LABS: ALBUMIN 3.6 G/DL (3.2-5.2); ALKALINE PHOSPHATASE 108 U/L (46-116); ALT/SGPT 33 U/L (7.0-40); AST/SGOT 18 U/L (<34); BILIRUBIN,TOTAL 0.5 MG/DL (0.3-1.2); BLOOD UREA NITROGEN 17 MG/DL (9-23); CALCIUM LEVEL 9.4 MG/DL (8.5-10.1); CARBON DIOXIDE LEVEL 24 MMOL/L (20-31); CHLORIDE LEVEL 105 MMOL/L (98-107); CREATININE FOR GFR 0.83 MG/DL (0.70-1.30); GLOMERULAR FILTRATION RATE > 60.0 (>56); GLUCOSE, FASTING 100 MG/DL (60-100); POTASSIUM SERUM 4.4 MMOL/L (3.5-5.1); SODIUM LEVEL 137 MMOL/L (136-145); TOTAL PROTEIN 6.1 G/DL (5.7-8.2)
[2022-09-16] MEDS: ENOXAPARIN 40MG/0.4ML SYRINGE (J1650 PER 10MG) SC SCH (08:54)
[2022-09-16] MEDS: MULTIVITAMINS/MINERALS THERAP 1 TAB PO SCH (08:54)
[2022-09-16] MEDS: LACTOBACILLUS ACIDOPHILUS CAP (BACID) PO SCH ×2 (08:57→17:56)
[2022-09-16] MEDS: DULoxetine 30MG CAPSULE (CYMBALTA) PO SCH (08:57)
[2022-09-16] MEDS: FOLIC ACID 1MG TAB PO SCH (08:57)
[2022-09-16] MEDS: GABAPENTIN 300 MG CAP PO SCH ×3 (08:58→20:53)
[2022-09-16] MEDS: ASPIRIN 81MG ENTERIC TABLET PO SCH (08:58)
[2022-09-16] MEDS: NICOTINE 21MG/24HR 1 EA TRANSDERMAL TD SCH (08:59)
[2022-09-16] MEDS: ACETAMINOPHEN TAB 650MG DOSE (2X325MG) PO PRN ×2 (09:06→21:03)
[2022-09-16] MEDS: LORazepam 2 MG TAB PO PRN (09:11)
[2022-09-16] MEDS: IBUPROFEN 600MG TAB PO PRN (12:52)
[2022-09-16] MEDS: PANTOPRAZOLE 40MG TAB (PROTONIX) PO SCH (16:35)
[2022-09-17] VITALS: BP 135/76
[2022-09-17] MEDS: CEPHALEXIN 500 MG CAP PO SCH ×4 (00:09→16:40)
[2022-09-17 04:00] VITALS: BP 135/90
[2022-09-17 05:10] VITALS: BP 135/89; TEMP 97.9; O2SAT 98
[2022-09-17 10:08] LABS: BENZOYLECGONINE, CONF, MS,UR 700 ng/mL (Cutoff=150); Benzodiazepines Negative (Cutoff=300); Cannabinoid Positive (.); Carboxy THC Conf, MS, UR 266 ng/mL (Cutoff=10); Cocaine Positive (.); Codeine Negative (Cutoff=200); GC Morphine 1501 ng/mL (Cutoff=200); Morphine Positive (.); Opiates Positive (.)
[2022-09-17] MEDS: GABAPENTIN 300 MG CAP PO SCH ×3 (10:49→20:10)
[2022-09-17] MEDS: DULoxetine 30MG CAPSULE (CYMBALTA) PO SCH (10:49)
[2022-09-17] MEDS: ASPIRIN 81MG ENTERIC TABLET PO SCH (10:50)
[2022-09-17] MEDS: IBUPROFEN 600MG TAB PO PRN ×2 (10:50→20:10)
[2022-09-17] MEDS: PANTOPRAZOLE 40MG TAB (PROTONIX) PO SCH (10:51)
[2022-09-17] MEDS: FOLIC ACID 1MG TAB PO SCH (10:51)
[2022-09-17] MEDS: MULTIVITAMINS/MINERALS THERAP 1 TAB PO SCH (10:51)
[2022-09-17] MEDS: NICOTINE 21MG/24HR 1 EA TRANSDERMAL TD SCH (10:51)
[2022-09-17] MEDS: ENOXAPARIN 40MG/0.4ML SYRINGE (J1650 PER 10MG) SC SCH (10:52)
[2022-09-17] MEDS: LACTOBACILLUS ACIDOPHILUS CAP (BACID) PO SCH ×2 (10:56→16:37)
[2022-09-17 12:00] VITALS: BP 148/90; TEMP 98; O2SAT 99
[2022-09-17] MEDS: ACETAMINOPHEN TAB 650MG DOSE (2X325MG) PO PRN (12:48)
[2022-09-17 20:00] VITALS: BP 154/82
[2022-09-17] MEDS: RAMELTEON 8 MG TAB (ROZEREM) PO PRN (20:10)
[2022-09-18] MEDS: CEPHALEXIN 500 MG CAP PO SCH ×4 (00:13→20:28)
[2022-09-18] MEDS: ONDANSETRON 4MG 2ML VIAL IV PRN (00:13)
[2022-09-18 04:00] VITALS: BP 168/84
[2022-09-18] MEDS: ACETAMINOPHEN TAB 650MG DOSE (2X325MG) PO PRN (06:24)
[2022-09-18 06:47] VITALS: BP 174/90; TEMP 98.5; O2SAT 95
[2022-09-18 08:00] VITALS: BP 162/84
[2022-09-18] MEDS: NICOTINE 21MG/24HR 1 EA TRANSDERMAL TD SCH (09:00)
[2022-09-18] MEDS: DULoxetine 30MG CAPSULE (CYMBALTA) PO SCH (10:20)
[2022-09-18] MEDS: MULTIVITAMINS/MINERALS THERAP 1 TAB PO SCH (10:21)
[2022-09-18] MEDS: GABAPENTIN 300 MG CAP PO SCH ×3 (10:21→20:27)
[2022-09-18] MEDS: PANTOPRAZOLE 40MG TAB (PROTONIX) PO SCH (10:21)
[2022-09-18] MEDS: FOLIC ACID 1MG TAB PO SCH (10:21)
[2022-09-18] MEDS: ASPIRIN 81MG ENTERIC TABLET PO SCH (10:23)
[2022-09-18] MEDS: ENOXAPARIN 40MG/0.4ML SYRINGE (J1650 PER 10MG) SC SCH (10:30)
[2022-09-18] MEDS: LACTOBACILLUS ACIDOPHILUS CAP (BACID) PO SCH ×2 (11:16→20:27)
[2022-09-18] MEDS: IBUPROFEN 600MG TAB PO PRN (20:27)
[2022-09-18] MEDS: RAMELTEON 8 MG TAB (ROZEREM) PO PRN (20:27)
[2022-09-19] MEDS: CEPHALEXIN 500 MG CAP PO SCH ×4 (02:34→18:29)
[2022-09-19 06:00] VITALS: BP 138/91; TEMP 97.9; O2SAT 96
[2022-09-19] MEDS: ASPIRIN 81MG ENTERIC TABLET PO SCH (09:13)
[2022-09-19] MEDS: GABAPENTIN 300 MG CAP PO SCH ×3 (09:13→21:00)
[2022-09-19] MEDS: MULTIVITAMINS/MINERALS THERAP 1 TAB PO SCH (09:13)
[2022-09-19] MEDS: PANTOPRAZOLE 40MG TAB (PROTONIX) PO SCH (09:13)
[2022-09-19] MEDS: DULoxetine 30MG CAPSULE (CYMBALTA) PO SCH (09:13)
[2022-09-19] MEDS: LACTOBACILLUS ACIDOPHILUS CAP (BACID) PO SCH ×2 (09:13→18:29)
[2022-09-19] MEDS: FOLIC ACID 1MG TAB PO SCH (09:13)
[2022-09-19] MEDS: NICOTINE 21MG/24HR 1 EA TRANSDERMAL TD SCH (09:14)
[2022-09-19] MEDS: ENOXAPARIN 40MG/0.4ML SYRINGE (J1650 PER 10MG) SC SCH (09:14)
[2022-09-19] MEDS: ONDANSETRON 4MG 2ML VIAL IV PRN (10:54)
[2022-09-19] MEDS: RAMELTEON 8 MG TAB (ROZEREM) PO PRN (21:39)
[2022-09-20] MEDS: IBUPROFEN 600MG TAB PO PRN (00:54)
[2022-09-20 06:00] VITALS: BP 149/81; TEMP 97.7; O2SAT 96
[2022-09-20] MEDS: LACTOBACILLUS ACIDOPHILUS CAP (BACID) PO SCH (08:47)
[2022-09-20] MEDS: ASPIRIN 81MG ENTERIC TABLET PO SCH (08:49)
[2022-09-20] MEDS: PANTOPRAZOLE 40MG TAB (PROTONIX) PO SCH (08:50)
[2022-09-20] MEDS: MULTIVITAMINS/MINERALS THERAP 1 TAB PO SCH (08:50)
[2022-09-20 08:51] VITALS: BP 149/95
[2022-09-20] MEDS: GABAPENTIN 300 MG CAP PO SCH (08:51)
[2022-09-20] MEDS: FOLIC ACID 1MG TAB PO SCH (08:51)
[2022-09-20] MEDS: DULoxetine 30MG CAPSULE (CYMBALTA) PO SCH (08:52)
[2022-09-20] MEDS: ENOXAPARIN 40MG/0.4ML SYRINGE (J1650 PER 10MG) SC SCH (08:52)
[2022-09-20] MEDS: NICOTINE 21MG/24HR 1 EA TRANSDERMAL TD SCH (09:00)
[2022-09-20] MEDS ORDERED: PANT40TA29 PO (11:31)
[2022-09-20] MEDS ORDERED: AMLO1TAB25 PO (11:31)
[2022-09-20] MEDS ORDERED: RAME8TAB2 PO (11:31)
[2022-09-20] MEDS ORDERED: LISI10TA22 PO (11:31)
[2022-09-20] MEDS ORDERED: FOLI1TAB11 PO (11:31)
[2022-09-20] MEDS ORDERED: VITMTA PO (11:31)
== END 2022-09-20 14:20 | disposition home or self-care (01) ==
LOC: M ED 01:35 → EDBD 01:35 → M ED INP 01:36 → ENRESERV 14:08 → M PCU 14:55 → M ICU 18:44 → M MS4PR 09-15 01:13 → M MS5PR 09-15 14:05
PROVIDERS: ADMIT Internal Medicine; ATTEND Family Medicine
DX: R19.7 Diarrhea, unspecified (principal); L03.113 Cellulitis of right upper limb; G93.41 Metabolic encephalopathy; I16.0 Hypertensive urgency; R10.32 Left lower quadrant pain; F19.10 Other psychoactive substance abuse, uncomplicated; K57.90 Diverticulosis of intestine, part unspecified, without perforation or abscess without bleeding; R45.1 Restlessness and agitation; K59.00 Constipation, unspecified; E78.5 Hyperlipidemia, unspecified; J43.9 Emphysema, unspecified; M19.90 Unspecified osteoarthritis, unspecified site; Z86.718 Personal history of other venous thrombosis and embolism; Z87.442 Personal history of urinary calculi; F17.210 Nicotine dependence, cigarettes, uncomplicated; Z79.899 Other long term (current) drug therapy; Z79.82 Long term (current) use of aspirin; Z91.030 Bee allergy status; J30.1 Allergic rhinitis due to pollen
CPT/HCPCS: 36415; 70450; 71275; 74176; 74177; 80053; 80307; 81001; 82077; 83605; 84484; 85025; 85027; 87040; 87631; 93005; 93306; 93971; 96361; 96365; 96372; 96375; 96376; 97116; 97161; 97165; 97530; 99285; C9113; G0378; G0480; J0360; J1170; J1630; J1650; J1885; J2060; J2405; J2765; J2930; J3411; Q9963; Q9967

== ENCOUNTER → 2022-11-13 | Outpatient (CLI) | payer MEDICARE ==
[~2022-11-13] MED LIST changes: +ALBU8.5H INH; +AMLO1TAB25 PO; +DICL100G10 TOP; -DICL1GEL3 TOP; +DOCU-153 PO; +DULO1CAP6 PO; +FOLI1TAB11 PO; +GABA600T4 PO; +HYDR50TA70 PO; +MIRA1POW3 PO; +PANT40TA29 PO; +RAME8TAB2 PO; +SENN-188 PO; +VITMTA PO
[2022-11-13 16:39] LABS: ALBUMIN 3.2 G/DL (3.2-5.2); ALKALINE PHOSPHATASE 98 U/L (46-116); ALT/SGPT 29 U/L (7.0-40); AST/SGOT 23 U/L (<34); BILIRUBIN,TOTAL 0.6 MG/DL (0.3-1.2); BLOOD UREA NITROGEN 20 MG/DL (9-23); CALCIUM LEVEL 9.5 MG/DL (8.5-10.1); CARBON DIOXIDE LEVEL 23 MMOL/L (20-31); CHLORIDE LEVEL 106 MMOL/L (98-107); CREATININE FOR GFR 0.82 MG/DL (0.70-1.30); GLOMERULAR FILTRATION RATE > 60.0 (>56); GLUCOSE, FASTING 97 MG/DL (60-100); POTASSIUM SERUM 4.7 MMOL/L (3.5-5.1); SODIUM LEVEL 137 MMOL/L (136-145)
== END ==
LOC: M LAB 15:42
PROVIDERS: ATTEND Nurse Practitioner Family
DX: E87.5 Hyperkalemia (principal); I10 Essential (primary) hypertension; B19.20 Unspecified viral hepatitis C without hepatic coma

== ENCOUNTER 2022-11-16 18:33 | Emergency (ER) | payer MEDICARE ==
[~2022-11-16] VITALS: Ht 180.3 cm; Wt 79.5 kg
[2022-11-16 18:35] VITALS: TEMP 98.1
[2022-11-16 20:38] LABS: BASO # 0.1 10^3/uL (0.0-0.2); BASO % 1.1 % (0.0-1.0); EOS # 0.5 10^3/uL (0.0-0.5); EOS % 6.6 % (0.0-3.0); HEMATOCRIT 35.1 % (42.0-52.0); HEMOGLOBIN 11.5 g/dl (13.5-17.5); LYMPH # 1.4 10^3/uL (1.5-5.0); LYMPH % 17.6 % (24.0-44.0); MEAN CORPUSCULAR HGB CONC 32.8 g/dl (32.0-36.5); MEAN CORPUSCULAR VOLUME 100.6 fl (80.0-96.0); MONO # 0.7 10^3/uL (0.0-0.8); MONO % 8.7 % (2.0-8.0); NEUTROPHILS # 5.1 10^3/uL (1.5-8.5); NEUTROPHILS % 65.5 % (36.0-66.0); PLATELET COUNT, AUTOMATED 395 10^3/uL (150-450); RED BLOOD COUNT 3.49 10^6/uL (4.30-6.10); WHITE BLOOD COUNT 7.9 10^3/uL (4.0-10.0)
[2022-11-16 20:53] LABS: INR 1.01; PROTHROMBIN TIME 13.5 SECONDS (12.5-14.5)
[2022-11-16 20:54] LABS: PARTIAL THROMBOPLASTIN TIME 26.7 SECONDS (24.8-34.2)
[2022-11-16 21:07] LABS: CK-MB VALUE MASS 2.4 NG/ML (<3.6)
[2022-11-16 21:08] LABS: BLOOD UREA NITROGEN 18 MG/DL (9-23); CALCIUM LEVEL 9.4 MG/DL (8.5-10.1); CARBON DIOXIDE LEVEL 23 MMOL/L (20-31); CHLORIDE LEVEL 111 MMOL/L (98-107); CREATININE FOR GFR 0.82 MG/DL (0.70-1.30); GLOMERULAR FILTRATION RATE > 60.0 (>56); GLUCOSE, FASTING 87 MG/DL (60-100); POTASSIUM SERUM 4.5 MMOL/L (3.5-5.1); SODIUM LEVEL 143 MMOL/L (136-145)
[2022-11-16 21:17] LABS: CPK CREATINE PHOSPHOKINASE 95 U/L (46-171); MB/CK RELATIVE INDEX 2.52 (< OR =4)
[2022-11-16 21:20] LABS: RSV AMPLIFICATION NEGATIVE (NEGATIVE)
[2022-11-16] MEDS ORDERED: ACETAMINOPHEN TAB 650MG DOSE (2X325MG) PO ONE (21:55)
[2022-11-17 00:30] VITALS: BP 156/98
[2022-11-17 00:33] VITALS: O2SAT 99
[2022-11-17] MEDS ORDERED: predniSONE 20 MG TAB PO ONE (00:35)
[2022-11-17] MEDS ORDERED: PRED20TA PO ×2 (00:35→14:06)
[2022-11-18] MEDS ORDERED: ASPI81TA26 PO (14:06)
== END 2022-11-17 00:55 | disposition home or self-care (01) ==
LOC: M ED 18:33
DX: M54.12 Radiculopathy, cervical region (principal); R53.1 Weakness; Z91.030 Bee allergy status; I25.2 Old myocardial infarction; F17.200 Nicotine dependence, unspecified, uncomplicated; Z86.718 Personal history of other venous thrombosis and embolism; K21.9 Gastro-esophageal reflux disease without esophagitis; Z87.442 Personal history of urinary calculi; M54.9 Dorsalgia, unspecified; F19.10 Other psychoactive substance abuse, uncomplicated; F41.9 Anxiety disorder, unspecified; F32.A Depression, unspecified; Z79.899 Other long term (current) drug therapy; Z79.82 Long term (current) use of aspirin; Z79.51 Long term (current) use of inhaled steroids
CPT/HCPCS: 70450; 70544; 70551; 71045; 72141; 80048; 82550; 82553; 84484; 85025; 85610; 85730; 86850; 86900; 86901; 87631; 93005; 93041; 94760; 99285; J7512

== ENCOUNTER 2022-11-18 11:21 | Day surgery (SDC) | payer MEDICARE ==
[~2022-11-18] VITALS: Ht 180.3 cm; Wt 81.4 kg
[2022-11-18] MEDS ORDERED: NS 1,000 ML IV SCH (12:45)
[2022-11-18] MEDS ORDERED: fentaNYL 100 MCG/2 ML INJECTION IV ONE ×3 (12:45→13:30)
[2022-11-18] MEDS ORDERED: propofoL 200 MG/20 ML VIAL IV.PROC PRN (12:45)
[2022-11-18 13:40] LABS: BLOOD UREA NITROGEN 32 MG/DL (9-23); CALCIUM LEVEL 9.8 MG/DL (8.5-10.1); CARBON DIOXIDE LEVEL 22 MMOL/L (20-31); CHLORIDE LEVEL 110 MMOL/L (98-107); CREATININE FOR GFR 0.92 MG/DL (0.70-1.30); GLOMERULAR FILTRATION RATE > 60.0 (>56); GLUCOSE, FASTING 110 MG/DL (60-100); POTASSIUM SERUM 5.3 MMOL/L (3.5-5.1); SODIUM LEVEL 141 MMOL/L (136-145)
[2022-11-18 13:44] LABS: BASO % 0.1 % (0.0-1.0); HEMATOCRIT 34.2 % (42.0-52.0); HEMOGLOBIN 11.1 g/dl (13.5-17.5); LYMPH # 0.6 10^3/uL (1.5-5.0); LYMPH % 4.7 % (24.0-44.0); MEAN CORPUSCULAR HEMOGLOBIN 32.3 pg (27.0-33.0); MEAN CORPUSCULAR HGB CONC 32.5 g/dl (32.0-36.5); MEAN CORPUSCULAR VOLUME 99.4 fl (80.0-96.0); MONO # 0.4 10^3/uL (0.0-0.8); MONO % 3.6 % (2.0-8.0); NEUTROPHILS # 10.9 10^3/uL (1.5-8.5); NEUTROPHILS % 90.9 % (36.0-66.0); PLATELET COUNT, AUTOMATED 420 10^3/uL (150-450); RED BLOOD COUNT 3.44 10^6/uL (4.30-6.10)
[2022-11-18] MEDS ORDERED: MED REC IN PROGRESS XX SCH (14:00)
[2022-11-18] MEDS ORDERED: ASPI81TA26 PO (14:06)
[2022-11-18] MEDS ORDERED: HOME MED LIST COMPLETE! XX SCH (14:10)
[2022-11-18 14:53] LABS: RSV AMPLIFICATION NEGATIVE (NEGATIVE)
[2022-11-18] MEDS ORDERED: fentaNYL 100 MCG/2 ML INJECTION As Ordered ONE (16:13)
[2022-11-18] MEDS ORDERED: MIDAZOLAM INJ 2MG/2ML VIAL As Ordered ONE (16:13)
[2022-11-18] MEDS ORDERED: propofoL 200 MG/20 ML VIAL As Ordered ONE (16:14)
[2022-11-18] MEDS ORDERED: LIDOCAINE 2% 100MG/5ML SDV (FOR ANES.) As Ordered ONE (16:14)
[2022-11-18] MEDS ORDERED: ACETAMINOPHEN TAB 650MG DOSE (2X325MG) PO ONE (17:20)
[2022-11-18 17:40] VITALS: BP 177/87; TEMP 97.9; O2SAT 99
== END 2022-11-18 18:04 | disposition home or self-care (01) ==
LOC: M ED 11:21 → M SDC 15:09
PROVIDERS: ATTEND Orthopaedic Surgery
DX: T84.020A Dislocation of internal right hip prosthesis, initial encounter (principal); Y79.2 Prosthetic and other implants, materials and accessory orthopedic devices associated with adverse incidents; M24.451 Recurrent dislocation, right hip; E87.5 Hyperkalemia; I10 Essential (primary) hypertension; I73.9 Peripheral vascular disease, unspecified; Z96.653 Presence of artificial knee joint, bilateral; Z96.643 Presence of artificial hip joint, bilateral; Z96.661 Presence of right artificial ankle joint; F32.A Depression, unspecified; F41.9 Anxiety disorder, unspecified; F19.10 Other psychoactive substance abuse, uncomplicated; K21.9 Gastro-esophageal reflux disease without esophagitis; Z86.718 Personal history of other venous thrombosis and embolism; J30.9 Allergic rhinitis, unspecified; Z91.030 Bee allergy status; F17.210 Nicotine dependence, cigarettes, uncomplicated; Z79.899 Other long term (current) drug therapy; Z79.82 Long term (current) use of aspirin; Z79.52 Long term (current) use of systemic steroids
CPT/HCPCS: 27266; 73501; 73502; 80048; 85025; 87631; 93005; 93041; 94760; 99156; 99157; 99285; J2250; J3010

== ENCOUNTER 2022-12-06 13:23 | Observation (INO) | payer MEDICARE ==
[~2022-12-06] VITALS: Ht 175.3 cm; Wt 76.8 kg
[~2022-12-06 13:23] MED LIST changes: +ASPI81TA26 PO
[2022-12-06] MEDS ORDERED: LIDOCAINE 2% 100MG/5ML SDV (FOR ANES.) As Ordered ONE (17:14)
[2022-12-06] MEDS ORDERED: METOCLOPRAMIDE INJ 10MG/2ML VIAL As Ordered ONE (17:14)
[2022-12-06] MEDS ORDERED: fentaNYL 100 MCG/2 ML INJECTION As Ordered ONE (17:14)
[2022-12-06] MEDS ORDERED: propofoL 200 MG/20 ML VIAL As Ordered ONE (17:14)
[2022-12-06] MEDS ORDERED: MIDAZOLAM INJ 2MG/2ML VIAL As Ordered ONE (17:14)
[2022-12-06] MEDS ORDERED: ROCURONIUM BROMIDE 50MG/5ML VIAL As Ordered ONE (17:38)
[2022-12-06] MEDS ORDERED: SUGAMMADEX SODIUM 500 MG/5 ML VIAL (BRIDION) As Ordered ONE (17:42)
[2022-12-06] MEDS ORDERED: NALOXONE INJ 0.4MG/1ML VIAL As Ordered ONE (17:51)
[2022-12-06] MEDS ORDERED: MOM 30ML SUSPENSION UDC PO PRN (18:00)
[2022-12-06] MEDS ORDERED: ACETAMINOPHEN TAB 650MG DOSE (2X325MG) PO PRN (18:00)
[2022-12-06] MEDS ORDERED: MAALOX 30 ML SUSP *UDC PO PRN (18:00)
[2022-12-06] MEDS ORDERED: LR 1,000 ML IV SCH (18:10)
[2022-12-06] MEDS ORDERED: LABETALOL 100MG/20ML VIAL IV PRN (18:10)
[2022-12-06] MEDS ORDERED: ONDANSETRON 4MG 2ML VIAL IV PRN (18:10)
[2022-12-06] MEDS ORDERED: LABETALOL 100MG/20ML VIAL As Ordered ONE (18:12)
[2022-12-06] MEDS ORDERED: MED REC IN PROGRESS XX SCH (18:20)
[2022-12-06] MEDS ORDERED: hydrALAZINE 20MG/ML 1ML VIAL IV PRN (19:00)
[2022-12-06] MEDS ORDERED: HYDROmorphone 2 MG TAB PO PRN (19:00)
[2022-12-06 19:32] LABS: BASO % 0.8 % (0.0-1.0); EOS # 0.3 10^3/uL (0.0-0.5); EOS % 5.4 % (0.0-3.0); HEMATOCRIT 37.2 % (42.0-52.0); HEMOGLOBIN 11.7 g/dl (13.5-17.5); LYMPH # 1.3 10^3/uL (1.5-5.0); LYMPH % 25.9 % (24.0-44.0); MEAN CORPUSCULAR HEMOGLOBIN 33.4 pg (27.0-33.0); MEAN CORPUSCULAR HGB CONC 31.5 g/dl (32.0-36.5); MEAN CORPUSCULAR VOLUME 106.3 fl (80.0-96.0); MONO # 0.6 10^3/uL (0.0-0.8); MONO % 11.7 % (2.0-8.0); NEUTROPHILS # 2.9 10^3/uL (1.5-8.5); NEUTROPHILS % 55.8 % (36.0-66.0); PLATELET COUNT, AUTOMATED 255 10^3/uL (150-450); WHITE BLOOD COUNT 5.1 10^3/uL (4.0-10.0)
[2022-12-06 19:50] LABS: ALBUMIN 2.9 G/DL (3.2-5.2); ALKALINE PHOSPHATASE 85 U/L (46-116); ALT/SGPT 20 U/L (7.0-40); AST/SGOT 17 U/L (<34); BILIRUBIN,TOTAL 0.3 MG/DL (0.3-1.2); BLOOD UREA NITROGEN 19 MG/DL (9-23); CARBON DIOXIDE LEVEL 28 MMOL/L (20-31); CHLORIDE LEVEL 107 MMOL/L (98-107); CREATININE FOR GFR 0.76 MG/DL (0.70-1.30); GLOMERULAR FILTRATION RATE > 60.0 (>56); GLUCOSE, FASTING 82 MG/DL (60-100); POTASSIUM SERUM 4.4 MMOL/L (3.5-5.1); SODIUM LEVEL 141 MMOL/L (136-145); TOTAL PROTEIN 5.4 G/DL (5.7-8.2)
[2022-12-06 21:34] VITALS: BP 164/80; TEMP 98.1; O2SAT 98
[2022-12-06 22:00] VITALS: BP 168/80; TEMP 98.3; O2SAT 100; O2SAT 99
[2022-12-06 23:00] VITALS: BP 160/74; TEMP 98; O2SAT 98; O2SAT 99
[2022-12-07] VITALS (17 sets, daily range): BP systolic 120–172; BP diastolic 57–90; TEMP 96.9–97.7; O2SAT 95–99
[2022-12-07] MEDS ORDERED: HOME MED LIST COMPLETE! XX SCH (00:15)
[2022-12-07] MEDS ORDERED: hydrOXYzine 50 MG TAB PO PRN (02:50)
[2022-12-07 07:00] LABS: BASO # 0.1 10^3/uL (0.0-0.2); EOS # 0.3 10^3/uL (0.0-0.5); EOS % 6.5 % (0.0-3.0); HEMATOCRIT 36.1 % (42.0-52.0); HEMOGLOBIN 11.6 g/dl (13.5-17.5); LYMPH # 1.3 10^3/uL (1.5-5.0); LYMPH % 27.6 % (24.0-44.0); MEAN CORPUSCULAR HGB CONC 32.1 g/dl (32.0-36.5); MEAN CORPUSCULAR VOLUME 102.6 fl (80.0-96.0); MONO # 0.5 10^3/uL (0.0-0.8); MONO % 10.4 % (2.0-8.0); NEUTROPHILS # 2.6 10^3/uL (1.5-8.5); NEUTROPHILS % 54.3 % (36.0-66.0); PLATELET COUNT, AUTOMATED 275 10^3/uL (150-450); RED BLOOD COUNT 3.52 10^6/uL (4.30-6.10); WHITE BLOOD COUNT 4.8 10^3/uL (4.0-10.0)
[2022-12-07 07:28] LABS: BLOOD UREA NITROGEN 12 MG/DL (9-23); CALCIUM LEVEL 8.8 MG/DL (8.5-10.1); CARBON DIOXIDE LEVEL 28 MMOL/L (20-31); CHLORIDE LEVEL 107 MMOL/L (98-107); CREATININE FOR GFR 0.65 MG/DL (0.70-1.30); GLOMERULAR FILTRATION RATE > 60.0 (>56); GLUCOSE, FASTING 83 MG/DL (60-100); POTASSIUM SERUM 4.3 MMOL/L (3.5-5.1); SODIUM LEVEL 139 MMOL/L (136-145)
[2022-12-07] MEDS: GABAPENTIN 300 MG CAP PO SCH ×3 (08:44→21:35)
[2022-12-07] MEDS: DULoxetine 30MG CAPSULE (CYMBALTA) PO SCH (08:44)
[2022-12-07] MEDS: HEPARIN SOD (PORCINE) 5000UNITS/ML 1ML VIAL/SYRINGE SQ SCH ×2 (13:00→21:35)
[2022-12-08 00:10] VITALS: BP 164/90; TEMP 98; O2SAT 96
[2022-12-08] MEDS: PERCOCET 5MG/325MG TAB PO PRN ×3 (00:16→09:38)
[2022-12-08] MEDS: HEPARIN SOD (PORCINE) 5000UNITS/ML 1ML VIAL/SYRINGE SQ SCH ×2 (05:13→15:04)
[2022-12-08 05:37] LABS: BASO # 0.1 10^3/uL (0.0-0.2); BASO % 0.9 % (0.0-1.0); EOS # 0.3 10^3/uL (0.0-0.5); EOS % 6.1 % (0.0-3.0); HEMATOCRIT 37.8 % (42.0-52.0); HEMOGLOBIN 12.3 g/dl (13.5-17.5); LYMPH # 1.7 10^3/uL (1.5-5.0); LYMPH % 31.5 % (24.0-44.0); MEAN CORPUSCULAR HEMOGLOBIN 32.9 pg (27.0-33.0); MEAN CORPUSCULAR HGB CONC 32.5 g/dl (32.0-36.5); MEAN CORPUSCULAR VOLUME 101.1 fl (80.0-96.0); MONO # 0.5 10^3/uL (0.0-0.8); MONO % 9.9 % (2.0-8.0); NEUTROPHILS # 2.8 10^3/uL (1.5-8.5); NEUTROPHILS % 51.4 % (36.0-66.0); PLATELET COUNT, AUTOMATED 307 10^3/uL (150-450); RED BLOOD COUNT 3.74 10^6/uL (4.30-6.10); WHITE BLOOD COUNT 5.4 10^3/uL (4.0-10.0)
[2022-12-08 06:02] LABS: BLOOD UREA NITROGEN 12 MG/DL (9-23); CALCIUM LEVEL 9.2 MG/DL (8.5-10.1); CARBON DIOXIDE LEVEL 27 MMOL/L (20-31); CHLORIDE LEVEL 107 MMOL/L (98-107); CREATININE FOR GFR 0.72 MG/DL (0.70-1.30); GLOMERULAR FILTRATION RATE > 60.0 (>56); GLUCOSE, FASTING 89 MG/DL (60-100); POTASSIUM SERUM 4.2 MMOL/L (3.5-5.1); SODIUM LEVEL 139 MMOL/L (136-145)
[2022-12-08 06:06] VITALS: BP 206/110; TEMP 98.4; O2SAT 98
[2022-12-08] MEDS: GABAPENTIN 300 MG CAP PO SCH ×2 (08:54→15:04)
[2022-12-08] MEDS: DULoxetine 30MG CAPSULE (CYMBALTA) PO SCH (08:54)
[2022-12-08] MEDS ORDERED: **hydrALAZINE** 50 MG TAB PO ONE (09:00)
[2022-12-08 11:15] VITALS: BP 170/98
[2022-12-08 14:32] VITALS: BP 170/92; TEMP 97.9; O2SAT 98
[2022-12-08 15:04] VITALS: BP 170/92
[2022-12-08] MEDS ORDERED: **hydrALAZINE HCL** 25 MG TAB PO SCH (16:00)
[2022-12-08] MEDS ORDERED: LOSA-528 PO (16:59)
[2022-12-08] MEDS ORDERED: HYDR-3910 PO (16:59)
[2022-12-08] MEDS ORDERED: LOSARTAN 50MG TABLET PO SCH (21:00)
== END 2022-12-08 17:10 | disposition left against medical advice (07) ==
LOC: M ED 13:23 → M ED INP 17:13 → M PCU 21:28 → M MS4PR 12-08 00:05
PROVIDERS: ADMIT Internal Medicine; ATTEND Internal Medicine
DX: T84.020A Dislocation of internal right hip prosthesis, initial encounter (principal); Y79.2 Prosthetic and other implants, materials and accessory orthopedic devices associated with adverse incidents; I16.0 Hypertensive urgency; F41.9 Anxiety disorder, unspecified; R20.0 Anesthesia of skin; F19.10 Other psychoactive substance abuse, uncomplicated; J30.1 Allergic rhinitis due to pollen; Z91.030 Bee allergy status; F17.210 Nicotine dependence, cigarettes, uncomplicated; Z79.899 Other long term (current) drug therapy; Z79.82 Long term (current) use of aspirin; Z86.718 Personal history of other venous thrombosis and embolism
CPT/HCPCS: 27266; 36415; 73502; 76000; 80048; 80053; 85025; 93005; 97116; 97161; 97165; 97530; 97535; 99284; G0378; J1920; J2250; J2310; J2765; J3010

== ENCOUNTER 2022-12-18 02:12 | Observation (INO) | payer MEDICARE ==
[~2022-12-18] VITALS: Ht 180.3 cm; Wt 72.8 kg
[~2022-12-18 02:12] MED LIST changes: +HYDR-3910 PO; +LOSA-528 PO
[2022-12-18] MEDS ORDERED: ONDANSETRON 4MG 2ML VIAL IV ONE (03:25)
[2022-12-18] MEDS: MORPHINE 4 MG/ML 1ML VIAL IV PRN ×2 (03:32→04:50)
[2022-12-18 04:19] LABS: BASO % 0.5 % (0.0-1.0); EOS % 0.5 % (0.0-3.0); HEMATOCRIT 37.2 % (42.0-52.0); HEMOGLOBIN 12.1 g/dl (13.5-17.5); LYMPH # 1.1 10^3/uL (1.5-5.0); LYMPH % 14.2 % (24.0-44.0); MEAN CORPUSCULAR HEMOGLOBIN 33.6 pg (27.0-33.0); MEAN CORPUSCULAR HGB CONC 32.5 g/dl (32.0-36.5); MEAN CORPUSCULAR VOLUME 103.3 fl (80.0-96.0); MONO # 0.8 10^3/uL (0.0-0.8); MONO % 10.7 % (2.0-8.0); NEUTROPHILS # 5.5 10^3/uL (1.5-8.5); NEUTROPHILS % 73.8 % (36.0-66.0); PLATELET COUNT, AUTOMATED 326 10^3/uL (150-450); WHITE BLOOD COUNT 7.5 10^3/uL (4.0-10.0)
[2022-12-18 04:40] LABS: BLOOD UREA NITROGEN 24 MG/DL (9-23); CALCIUM LEVEL 9.9 MG/DL (8.5-10.1); CARBON DIOXIDE LEVEL 29 MMOL/L (20-31); CHLORIDE LEVEL 107 MMOL/L (98-107); CREATININE FOR GFR 1.06 MG/DL (0.70-1.30); GLOMERULAR FILTRATION RATE > 60.0 (>56); GLUCOSE, FASTING 90 MG/DL (60-100); POTASSIUM SERUM 4.8 MMOL/L (3.5-5.1); SODIUM LEVEL 142 MMOL/L (136-145)
[2022-12-18] MEDS ORDERED: HYDR-3911 PO (04:40)
[2022-12-18] MEDS ORDERED: LOSA50TA28 PO (04:40)
[2022-12-18] MEDS ORDERED: ACET650T15 PO (04:42)
[2022-12-18] MEDS ORDERED: HOME MED LIST COMPLETE! XX SCH (04:45)
[2022-12-18] MEDS ORDERED: MOM 30ML SUSPENSION UDC PO PRN (04:50)
[2022-12-18] MEDS ORDERED: ACETAMINOPHEN TAB 650MG DOSE (2X325MG) PO PRN (04:50)
[2022-12-18] MEDS ORDERED: MAALOX 30 ML SUSP *UDC PO PRN (04:50)
[2022-12-18] MEDS ORDERED: LR 1,000 ML IV SCH (04:55)
[2022-12-18] MEDS ORDERED: HYDROMORPHONE HCL 0.5 MG/ 0.5 ML SYRINGE IV STA (05:34)
[2022-12-18] MEDS: ACETAMINOPHEN TAB 650MG DOSE (2X325MG) PO SCH ×2 (06:00→13:11)
[2022-12-18 06:54] VITALS: BP 140/78; TEMP 97.4; O2SAT 97
[2022-12-18] MEDS ORDERED: MORPHINE 4 MG/ML 1ML VIAL IV PRN ×2 (07:00→07:10)
[2022-12-18] MEDS ORDERED: oxyCODONE 5MG TAB PO PRN (07:10)
[2022-12-18] MEDS ORDERED: KETOROLAC 30 MG/ML 1ML VIAL IV PRN ×2 (07:10)
[2022-12-18] MEDS ORDERED: ALBUTEROL 90 MCG/ACT 8GM HFA INHALER INH PRN (07:10)
[2022-12-18] MEDS ORDERED: propofoL 200 MG/20 ML VIAL As Ordered ONE ×2 (08:58→08:59)
[2022-12-18] MEDS ORDERED: LIDOCAINE 2% 100MG/5ML SDV (FOR ANES.) As Ordered ONE (08:59)
[2022-12-18] MEDS ORDERED: fentaNYL 100 MCG/2 ML INJECTION As Ordered ONE (09:00)
[2022-12-18] MEDS ORDERED: GABAPENTIN 300 MG CAP PO SCH (09:00)
[2022-12-18] MEDS ORDERED: NICOTINE 14 MG/24 HR TRANSDERMAL TD SCH (09:00)
[2022-12-18] MEDS ORDERED: MIDAZOLAM INJ 2MG/2ML VIAL As Ordered ONE (09:00)
[2022-12-18] MEDS ORDERED: DICLOFENAC EPOLAMINE 1.3% PATCH TOP SCH (09:00)
[2022-12-18] MEDS ORDERED: LIDOCAINE 5% (LIDODERM) PATCH TD SCH (09:00)
[2022-12-18 10:00] VITALS: BP 127/73; TEMP 97.7; O2SAT 97
[2022-12-18 10:28] LABS: IRON (FE) 32 UG/DL (65-175); PERCENT SATURATION 10.6 % (19.7-50.0); TOTAL IRON BINDING CAPACITY 303 UG/DL (250-425)
[2022-12-18 10:32] LABS: FERRITIN 80.8 NG/ML (10.5-307.3)
[2022-12-18 10:33] LABS: TOTAL 25(OH) VITAMIN D 40.7 NG/ML (20.0-100.0); VITAMIN B12 LEVEL 347 PG/ML (211-911)
[2022-12-18] MEDS ORDERED: OXYC-517 PO (12:15)
[2022-12-18] MEDS ORDERED: ACET-683 PO (12:15)
[2022-12-18] MEDS ORDERED: DICL100G10 TOP (12:15)
[2022-12-18] MEDS ORDERED: LIDO5TD TD (12:15)
[2022-12-18] MEDS ORDERED: FERRIC CARBOXYMALTOSE INJ 750 MG, VIAL MATE ADAPTER 1 EACH in NS 250 ML IV ONE (13:00)
[2022-12-18 14:00] VITALS: BP 131/64; TEMP 99.5; O2SAT 92
== END 2022-12-18 15:53 | disposition home or self-care (01) ==
LOC: M ED 02:12 → M ED INP 02:13 → M MS4PR 06:35
PROVIDERS: ADMIT Family Medicine; ATTEND Family Medicine
DX: T84.020A Dislocation of internal right hip prosthesis, initial encounter (principal); Y79.2 Prosthetic and other implants, materials and accessory orthopedic devices associated with adverse incidents; M24.451 Recurrent dislocation, right hip; D53.9 Nutritional anemia, unspecified; I10 Essential (primary) hypertension; F32.A Depression, unspecified; J44.9 Chronic obstructive pulmonary disease, unspecified; G62.89 Other specified polyneuropathies; Z86.19 Personal history of other infectious and parasitic diseases; D75.89 Other specified diseases of blood and blood-forming organs; J30.1 Allergic rhinitis due to pollen; Z91.030 Bee allergy status; Z79.899 Other long term (current) drug therapy; Z79.82 Long term (current) use of aspirin; F17.210 Nicotine dependence, cigarettes, uncomplicated
CPT/HCPCS: 27266; 72170; 73502; 80048; 82306; 82607; 82728; 82746; 83550; 85025; 87635; 96361; 96374; 96375; 96376; 97116; 97161; 99284; G0378; J1170; J1439; J1885; J2250; J2405; J3010

== ENCOUNTER 2023-01-25 01:00 | Inpatient (IN) | payer MEDICARE ==
[~2023-01-25] VITALS: Ht 180.3 cm; Wt 73.4 kg
[~2023-01-25 01:00] MED LIST changes: +ACET-683 PO; +ACET650T15 PO; +HYDR-3911 PO; +LIDO5TD TD; +LOSA50TA28 PO
[2023-01-25] MEDS ORDERED: MIDAZOLAM INJ 2MG/2ML VIAL IV STA ×2 (02:48)
[2023-01-25] MEDS ORDERED: propofoL 200 MG/20 ML VIAL IV.PROC PRN (02:50)
[2023-01-25] MEDS ORDERED: NS 1,000 ML IV SCH (02:50)
[2023-01-25] MEDS ORDERED: fentaNYL 100 MCG/2 ML INJECTION IV ONE (03:05)
[2023-01-25 03:54] LABS: BASO % 0.5 % (0.0-1.0); EOS # 0.3 10^3/uL (0.0-0.5); EOS % 3.7 % (0.0-3.0); HEMATOCRIT 41.3 % (42.0-52.0); HEMOGLOBIN 13.6 g/dl (13.5-17.5); LYMPH # 1.6 10^3/uL (1.5-5.0); LYMPH % 20.6 % (24.0-44.0); MEAN CORPUSCULAR HEMOGLOBIN 33.7 pg (27.0-33.0); MEAN CORPUSCULAR HGB CONC 32.9 g/dl (32.0-36.5); MEAN CORPUSCULAR VOLUME 102.2 fl (80.0-96.0); MONO # 0.7 10^3/uL (0.0-0.8); MONO % 9.7 % (2.0-8.0); NEUTROPHILS # 4.9 10^3/uL (1.5-8.5); NEUTROPHILS % 65.4 % (36.0-66.0); PLATELET COUNT, AUTOMATED 292 10^3/uL (150-450); RED BLOOD COUNT 4.04 10^6/uL (4.30-6.10); WHITE BLOOD COUNT 7.5 10^3/uL (4.0-10.0)
[2023-01-25 03:57] LABS: BLOOD UREA NITROGEN 21 MG/DL (9-23); CALCIUM LEVEL 9.4 MG/DL (8.5-10.1); CARBON DIOXIDE LEVEL 28 MMOL/L (20-31); CHLORIDE LEVEL 103 MMOL/L (98-107); CREATININE FOR GFR 0.85 MG/DL (0.70-1.30); GLOMERULAR FILTRATION RATE > 60.0 (>56); GLUCOSE, FASTING 83 MG/DL (60-100); MAGNESIUM LEVEL 2.1 MG/DL (1.8-2.4); POTASSIUM SERUM 4.7 MMOL/L (3.5-5.1); SODIUM LEVEL 135 MMOL/L (136-145)
[2023-01-25] MEDS ORDERED: ONDANSETRON 4MG 2ML VIAL IV PRN ×2 (05:05→09:05)
[2023-01-25] MEDS ORDERED: IPRATROPIUM 0.5MG/ALBUTEROL 2.5MG INH SOL UD 3ML (DUONEB) NEB PRN (05:05)
[2023-01-25] MEDS ORDERED: HYDROMORPHONE HCL 0.5 MG/ 0.5 ML SYRINGE IV PRN ×2 (05:05)
[2023-01-25] MEDS ORDERED: LR 1,000 ML IV SCH ×2 (05:05→09:05)
[2023-01-25] MEDS ORDERED: HYDR-3910 PO (05:39)
[2023-01-25] MEDS ORDERED: ACET650T61 PO (05:39)
[2023-01-25] MEDS ORDERED: VITMTA PO (05:40)
[2023-01-25] MEDS ORDERED: HOME MED LIST COMPLETE! XX SCH (05:40)
[2023-01-25 05:42] LABS: RSV AMPLIFICATION NEGATIVE (NEGATIVE)
[2023-01-25] MEDS ORDERED: hydrOXYzine 50 MG TAB PO PRN (05:55)
[2023-01-25] MEDS ORDERED: ALBUTEROL 90 MCG/ACT 8GM HFA INHALER INH PRN (05:55)
[2023-01-25 07:40] LABS: INR 1.12; PARTIAL THROMBOPLASTIN TIME 29.5 SECONDS (24.8-34.2); PROTHROMBIN TIME 14.1 SECONDS (12.5-14.5)
[2023-01-25] MEDS: **hydrALAZINE HCL** 25 MG TAB PO SCH ×3 (09:00→21:06)
[2023-01-25] MEDS: GABAPENTIN 300 MG CAP PO SCH ×3 (09:00→21:06)
[2023-01-25] MEDS ORDERED: MIDAZOLAM INJ 2MG/2ML VIAL As Ordered ONE (09:03)
[2023-01-25] MEDS ORDERED: propofoL 200 MG/20 ML VIAL As Ordered ONE (09:03)
[2023-01-25] MEDS ORDERED: KETAMINE HCL 200MG/20ML VIAL As Ordered ONE (09:03)
[2023-01-25] MEDS ORDERED: fentaNYL 100 MCG/2 ML INJECTION IV PRN (09:05)
[2023-01-25] MEDS ORDERED: oxyCODONE 5MG TAB PO PRN (09:05)
[2023-01-25] MEDS ORDERED: traMADol 50 MG TAB PO PRN (14:15)
[2023-01-25 14:50] VITALS: BP 159/85; TEMP 97.9; O2SAT 96
[2023-01-25] MEDS: DULoxetine 30MG CAPSULE (CYMBALTA) PO SCH (16:01)
[2023-01-25] MEDS: ASPIRIN 81MG ENTERIC TABLET PO SCH (16:01)
[2023-01-25] MEDS: PERCOCET 5MG/325MG TAB PO PRN (16:36)
[2023-01-25 21:00] VITALS: BP 143/80; TEMP 98.1; O2SAT 94
[2023-01-26] MEDS: PERCOCET 5MG/325MG TAB PO PRN ×2 (01:43→09:49)
[2023-01-26 05:40] VITALS: TEMP 98.8; O2SAT 97
[2023-01-26 05:54] VITALS: BP 152/96
[2023-01-26 06:06] LABS: HEMATOCRIT 38.3 % (42.0-52.0); HEMOGLOBIN 12.9 g/dl (13.5-17.5); MEAN CORPUSCULAR HGB CONC 33.7 g/dl (32.0-36.5); MEAN CORPUSCULAR VOLUME 101.1 fl (80.0-96.0); PLATELET COUNT, AUTOMATED 256 10^3/uL (150-450); RED BLOOD COUNT 3.79 10^6/uL (4.30-6.10); WHITE BLOOD COUNT 4.9 10^3/uL (4.0-10.0)
[2023-01-26 06:31] LABS: BLOOD UREA NITROGEN 14 MG/DL (9-23); CALCIUM LEVEL 9.1 MG/DL (8.5-10.1); CARBON DIOXIDE LEVEL 26 MMOL/L (20-31); CHLORIDE LEVEL 108 MMOL/L (98-107); CREATININE FOR GFR 0.74 MG/DL (0.70-1.30); GLOMERULAR FILTRATION RATE > 60.0 (>56); GLUCOSE, FASTING 100 MG/DL (60-100); POTASSIUM SERUM 4.4 MMOL/L (3.5-5.1); SODIUM LEVEL 140 MMOL/L (136-145)
[2023-01-26] MEDS: ASPIRIN 81MG ENTERIC TABLET PO SCH (09:49)
[2023-01-26] MEDS: DULoxetine 30MG CAPSULE (CYMBALTA) PO SCH (09:49)
[2023-01-26] MEDS: GABAPENTIN 300 MG CAP PO SCH (09:49)
[2023-01-26 09:50] VITALS: BP 152/96
[2023-01-26] MEDS: **hydrALAZINE HCL** 25 MG TAB PO SCH (09:50)
[2023-01-26] MEDS ORDERED: TRAM50TA2 PO (09:53)
[2023-01-26] MEDS ORDERED: ENOXAPARIN 40MG/0.4ML SYRINGE (J1650 PER 10MG) SC SCH (21:00)
== END 2023-01-26 12:30 | disposition home health service (06) | DRG 561 ==
LOC: M ED 01:00 → M ED INP 05:01 → M MS5PR 14:45
PROVIDERS: ADMIT Internal Medicine; ATTEND Internal Medicine
PROC: 2W3 Placement, Anatomical Regions, Immobilization (ICD-10-PCS; 2023-01-25)
PROC: 0SS9XZZ Reposition Right Hip Joint, External Approach (ICD-10-PCS; principal; 2023-01-25 09:00)
DX: T84.020A Dislocation of internal right hip prosthesis, initial encounter (principal); J44.9 Chronic obstructive pulmonary disease, unspecified; I10 Essential (primary) hypertension; K21.9 Gastro-esophageal reflux disease without esophagitis; F32.A Depression, unspecified; F41.9 Anxiety disorder, unspecified; M19.011 Primary osteoarthritis, right shoulder; Z96.643 Presence of artificial hip joint, bilateral; Z96.653 Presence of artificial knee joint, bilateral; F17.210 Nicotine dependence, cigarettes, uncomplicated; E78.5 Hyperlipidemia, unspecified; G89.29 Other chronic pain; Z79.82 Long term (current) use of aspirin; Z79.899 Other long term (current) drug therapy; Z91.030 Bee allergy status; Z20.822 Contact with and (suspected) exposure to COVID-19

== ENCOUNTER 2023-02-20 14:50 | Observation (INO) | payer MEDICARE ==
[~2023-02-20] VITALS: Ht 180.3 cm; Wt 61.5 kg
[~2023-02-20 14:50] MED LIST changes: +ACET650T61 PO; +TRAM50TA2 PO
[2023-02-20] MEDS ORDERED: NS 1,000 ML IV STA ×2 (16:06→18:05)
[2023-02-20 16:07] LABS: BASO # 0.1 10^3/uL (0.0-0.2); BASO % 0.6 % (0.0-1.0); EOS # 0.2 10^3/uL (0.0-0.5); EOS % 1.9 % (0.0-3.0); LYMPH # 1.4 10^3/uL (1.5-5.0); LYMPH % 14.3 % (24.0-44.0); MEAN CORPUSCULAR HEMOGLOBIN 33.7 pg (27.0-33.0); MEAN CORPUSCULAR HGB CONC 33.3 g/dl (32.0-36.5); MONO # 0.8 10^3/uL (0.0-0.8); MONO % 7.8 % (2.0-8.0); NEUTROPHILS # 7.3 10^3/uL (1.5-8.5); NEUTROPHILS % 75.1 % (36.0-66.0); PLATELET COUNT, AUTOMATED 308 10^3/uL (150-450); RED BLOOD COUNT 4.16 10^6/uL (4.30-6.10); WHITE BLOOD COUNT 9.7 10^3/uL (4.0-10.0)
[2023-02-20] MEDS ORDERED: KETOROLAC 30 MG/ML 1ML VIAL IV ONE (16:10)
[2023-02-20] MEDS ORDERED: MORPHINE 2 MG/ML 1ML VIAL IV PRN (16:35)
[2023-02-20] MEDS ORDERED: MOM 30ML SUSPENSION UDC PO PRN (16:35)
[2023-02-20 17:17] LABS: RSV AMPLIFICATION NEGATIVE (NEGATIVE)
[2023-02-20] MEDS ORDERED: HOME MED LIST COMPLETE! XX SCH (17:25)
[2023-02-20 17:41] LABS: INR 1.14; PROTHROMBIN TIME 14.3 SECONDS (12.5-14.5)
[2023-02-20] MEDS: ACETAMINOPHEN 500 MG TAB PO SCH (18:15)
[2023-02-20] MEDS ORDERED: NS 1,000 ML IV ONE (19:00)
[2023-02-20 20:10] VITALS: BP 121/69; TEMP 97.5; O2SAT 99
[2023-02-20] MEDS: MORPHINE 4 MG/ML 1ML VIAL IV PRN (20:48)
[2023-02-20] MEDS: DICLOFENAC EPOLAMINE 1.3% PATCH TOP SCH (20:49)
[2023-02-20] MEDS: DOCUSATE SODIUM 100MG CAPSULE PO SCH (20:49)
[2023-02-20 22:00] VITALS: BP 132/74; TEMP 98; O2SAT 95
[2023-02-20] MEDS ORDERED: HEPARIN SOD (PORCINE) 5000UNITS/ML 1ML VIAL/SYRINGE SC ONE (22:00)
[2023-02-21] MEDS: ACETAMINOPHEN 500 MG TAB PO SCH ×4 (00:48→18:09)
[2023-02-21] MEDS: KETOROLAC 30 MG/ML 1ML VIAL IV PRN ×3 (03:42→19:58)
[2023-02-21] MEDS: MORPHINE 4 MG/ML 1ML VIAL IV PRN ×2 (04:23→21:12)
[2023-02-21 06:00] VITALS: BP 148/83; TEMP 98.4; O2SAT 94
[2023-02-21 06:07] LABS: HEMOGLOBIN 12.7 g/dl (13.5-17.5); MEAN CORPUSCULAR HGB CONC 33.4 g/dl (32.0-36.5); MEAN CORPUSCULAR VOLUME 101.6 fl (80.0-96.0); PLATELET COUNT, AUTOMATED 253 10^3/uL (150-450); RED BLOOD COUNT 3.74 10^6/uL (4.30-6.10); WHITE BLOOD COUNT 5.5 10^3/uL (4.0-10.0)
[2023-02-21 06:31] LABS: BLOOD UREA NITROGEN 25 MG/DL (9-23); CARBON DIOXIDE LEVEL 23 MMOL/L (20-31); CHLORIDE LEVEL 111 MMOL/L (98-107); GLOMERULAR FILTRATION RATE > 60.0 (>56); GLUCOSE, FASTING 87 MG/DL (60-100); POTASSIUM SERUM 4.9 MMOL/L (3.5-5.1); SODIUM LEVEL 140 MMOL/L (136-145)
[2023-02-21] MEDS: DICLOFENAC EPOLAMINE 1.3% PATCH TOP SCH ×2 (08:41→19:58)
[2023-02-21] MEDS: DOCUSATE SODIUM 100MG CAPSULE PO SCH ×2 (08:41→19:58)
[2023-02-21] MEDS: LIDOCAINE 5% (LIDODERM) PATCH TD SCH (08:41)
[2023-02-21] MEDS ORDERED: OXYC1TAB23 PO (09:40)
[2023-02-21] MEDS ORDERED: DICL1PAT6 TOP (09:40)
[2023-02-21] MEDS ORDERED: IBUP-1022 PO (09:40)
[2023-02-21] MEDS ORDERED: LIDO5TD TD (09:40)
[2023-02-21] MEDS ORDERED: ACET650T61 PO (09:40)
[2023-02-21] MEDS ORDERED: propofoL 200 MG/20 ML VIAL As Ordered ONE ×2 (09:47→11:09)
[2023-02-21] MEDS ORDERED: LIDOCAINE 2% 100MG/5ML SDV (FOR ANES.) As Ordered ONE (09:47)
[2023-02-21] MEDS ORDERED: MIDAZOLAM INJ 2MG/2ML VIAL As Ordered ONE (09:53)
[2023-02-21] MEDS ORDERED: fentaNYL 100 MCG/2 ML INJECTION As Ordered ONE (09:53)
[2023-02-21] MEDS ORDERED: ROCURONIUM BROMIDE 50MG/5ML VIAL As Ordered ONE (11:10)
[2023-02-21] MEDS ORDERED: SUGAMMADEX SODIUM 500 MG/5 ML VIAL (BRIDION) As Ordered ONE (11:20)
[2023-02-21] MEDS ORDERED: HYDROMORPHONE HCL 0.5 MG/ 0.5 ML SYRINGE IV PRN (11:30)
[2023-02-21] MEDS ORDERED: ONDANSETRON 4MG 2ML VIAL IV PRN (11:30)
[2023-02-21] MEDS ORDERED: fentaNYL 100 MCG/2 ML INJECTION IV PRN (11:30)
[2023-02-21] MEDS ORDERED: LR 1,000 ML IV SCH (11:30)
[2023-02-21] MEDS ORDERED: oxyCODONE 5MG TAB PO PRN (11:30)
[2023-02-21 12:50] VITALS: BP 178/100; TEMP 97.9; O2SAT 97
[2023-02-21] MEDS ORDERED: ONDANSETRON 4MG ORAL DISINTEGRATING TAB SL PRN (14:05)
[2023-02-21] MEDS: ONDANSETRON 4MG 2ML VIAL IV PRN (17:26)
[2023-02-21 20:50] VITALS: BP 181/101; TEMP 97.2; O2SAT 98
[2023-02-21 20:55] VITALS: BP 210/115
[2023-02-21] MEDS ORDERED: LORazepam 2 MG/ML 1ML VIAL IV ONE (21:00)
[2023-02-21 22:50] VITALS: BP 190/95
[2023-02-22] VITALS (7 sets, daily range): BP systolic 164–202; BP diastolic 96–116; TEMP 98.2–98.4; O2SAT 93–99
[2023-02-22] MEDS: ACETAMINOPHEN 500 MG TAB PO SCH ×4 (00:24→18:07)
[2023-02-22] MEDS: MORPHINE 4 MG/ML 1ML VIAL IV PRN (03:30)
[2023-02-22] MEDS ORDERED: hydrOXYzine 50 MG TAB PO PRN (05:35)
[2023-02-22] MEDS ORDERED: LOSARTAN 50MG TABLET PO ONE (06:00)
[2023-02-22] MEDS ORDERED: **hydrALAZINE HCL** 25 MG TAB PO ONE (06:00)
[2023-02-22] MEDS ORDERED: amLODIPine 5 MG TAB PO ONE ×2 (06:00)
[2023-02-22] MEDS ORDERED: HYDROMORPHONE HCL 0.5 MG/ 0.5 ML SYRINGE IV PRN (07:55)
[2023-02-22] MEDS: DICLOFENAC EPOLAMINE 1.3% PATCH TOP SCH ×2 (08:20→21:43)
[2023-02-22] MEDS: ASPIRIN 81MG ENTERIC TABLET PO SCH (08:20)
[2023-02-22] MEDS: LIDOCAINE 5% (LIDODERM) PATCH TD SCH (08:20)
[2023-02-22] MEDS: DULoxetine 30MG CAPSULE (CYMBALTA) PO SCH (08:21)
[2023-02-22] MEDS: DOCUSATE SODIUM 100MG CAPSULE PO SCH ×2 (08:21→21:42)
[2023-02-22] MEDS: GABAPENTIN 300 MG CAP PO SCH ×3 (08:21→21:41)
[2023-02-22] MEDS: KETOROLAC 30 MG/ML 1ML VIAL IV PRN (08:24)
[2023-02-22] MEDS: ONDANSETRON 4MG 2ML VIAL IV PRN (08:24)
[2023-02-22] MEDS: HYDROMORPHONE HCL 0.5 MG/ 0.5 ML SYRINGE IV PRN ×2 (08:34→18:34)
[2023-02-22] MEDS: CYCLOBENZAPRINE 5MG TABLET PO SCH ×3 (08:38→21:41)
[2023-02-22] MEDS ORDERED: KETOROLAC 30 MG/ML 1ML VIAL IV ONE (09:45)
[2023-02-22] MEDS ORDERED: **hydrALAZINE HCL** 25 MG TAB PO SCH (13:00)
[2023-02-22] MEDS: KETOROLAC 30 MG/ML 1ML VIAL IV SCH ×2 (14:59→21:41)
[2023-02-22] MEDS ORDERED: methylPREDNISolone 125MG 2ML VIAL IV ONE (16:20)
[2023-02-22] MEDS ORDERED: diphenhydrAMINE 50MG/ML VIAL IV ONE (16:20)
[2023-02-22] MEDS: CAPTOpril 6.25 MG PER 1/2 TABLET PO SCH ×2 (18:10→21:42)
[2023-02-22] MEDS: **hydrALAZINE** 50 MG TAB PO SCH (21:42)
[2023-02-23] MEDS: ACETAMINOPHEN 500 MG TAB PO SCH ×3 (01:09→11:48)
[2023-02-23] MEDS: KETOROLAC 30 MG/ML 1ML VIAL IV SCH ×2 (03:28→09:54)
[2023-02-23 05:57] VITALS: BP 178/102; TEMP 98.7; O2SAT 97
[2023-02-23 08:00] LABS: HEMATOCRIT 46.9 % (42.0-52.0); HEMOGLOBIN 15.9 g/dl (13.5-17.5); MEAN CORPUSCULAR HEMOGLOBIN 32.8 pg (27.0-33.0); MEAN CORPUSCULAR HGB CONC 33.9 g/dl (32.0-36.5); MEAN CORPUSCULAR VOLUME 96.7 fl (80.0-96.0); PLATELET COUNT, AUTOMATED 342 10^3/uL (150-450); RED BLOOD COUNT 4.85 10^6/uL (4.30-6.10); WHITE BLOOD COUNT 8.1 10^3/uL (4.0-10.0)
[2023-02-23 08:24] LABS: ALBUMIN 3.9 G/DL (3.2-5.2); ALKALINE PHOSPHATASE 98 U/L (46-116); ALT/SGPT 14 U/L (7.0-40); AST/SGOT 13 U/L (<34); BILIRUBIN,TOTAL 0.7 MG/DL (0.3-1.2); BLOOD UREA NITROGEN 23 MG/DL (9-23); CARBON DIOXIDE LEVEL 26 MMOL/L (20-31); CHLORIDE LEVEL 102 MMOL/L (98-107); CREATININE FOR GFR 0.78 MG/DL (0.70-1.30); GLOMERULAR FILTRATION RATE > 60.0 (>56); GLUCOSE, FASTING 107 MG/DL (60-100); POTASSIUM SERUM 4.3 MMOL/L (3.5-5.1); SODIUM LEVEL 137 MMOL/L (136-145); TOTAL PROTEIN 7.5 G/DL (5.7-8.2)
[2023-02-23] MEDS ORDERED: CAPTOpril 12.5 MG TAB PO SCH (09:00)
[2023-02-23] MEDS: GABAPENTIN 300 MG CAP PO SCH (09:49)
[2023-02-23] MEDS: ASPIRIN 81MG ENTERIC TABLET PO SCH (09:49)
[2023-02-23] MEDS: DOCUSATE SODIUM 100MG CAPSULE PO SCH (09:49)
[2023-02-23] MEDS: DULoxetine 30MG CAPSULE (CYMBALTA) PO SCH (09:50)
[2023-02-23] MEDS: **hydrALAZINE** 50 MG TAB PO SCH (09:50)
[2023-02-23] MEDS: LIDOCAINE 5% (LIDODERM) PATCH TD SCH (09:51)
[2023-02-23] MEDS: DICLOFENAC EPOLAMINE 1.3% PATCH TOP SCH (09:51)
[2023-02-23] MEDS ORDERED: AMLO1TAB25 PO (09:51)
[2023-02-23] MEDS: ONDANSETRON 4MG 2ML VIAL IV PRN (11:47)
== END 2023-02-23 12:35 | disposition home or self-care (01) ==
LOC: M ED 14:50 → M ED INP 14:51 → M MS5PR 20:16
PROVIDERS: ADMIT Student in an Organized Health Care Education/Training Program; ATTEND Student in an Organized Health Care Education/Training Program
DX: T84.020A Dislocation of internal right hip prosthesis, initial encounter (principal); Y79.2 Prosthetic and other implants, materials and accessory orthopedic devices associated with adverse incidents; M24.451 Recurrent dislocation, right hip; R11.2 Nausea with vomiting, unspecified; I10 Essential (primary) hypertension; F11.23 Opioid dependence with withdrawal; F32.A Depression, unspecified; F41.9 Anxiety disorder, unspecified; G62.9 Polyneuropathy, unspecified; J44.9 Chronic obstructive pulmonary disease, unspecified; B19.20 Unspecified viral hepatitis C without hepatic coma; K21.9 Gastro-esophageal reflux disease without esophagitis; M19.90 Unspecified osteoarthritis, unspecified site; Z79.899 Other long term (current) drug therapy; Z79.82 Long term (current) use of aspirin; J30.1 Allergic rhinitis due to pollen; Z86.718 Personal history of other venous thrombosis and embolism; Z91.030 Bee allergy status
CPT/HCPCS: 27266; 36415; 71045; 73502; 76000; 80047; 80048; 80053; 85025; 85027; 85610; 87631; 93005; 96361; 96374; 96375; 96376; 97116; 97161; 99285; G0378; J1170; J1200; J1885; J2060; J2250; J2405; J2930; J3010

== ENCOUNTER 2023-03-24 08:40 | Observation (INO) | payer MEDICARE ==
[~2023-03-24] VITALS: Ht 180.3 cm; Wt 64.2 kg
[~2023-03-24 08:40] MED LIST changes: +DICL1PAT6 TOP; -DOCU-153 PO; -HYDR-3910 PO; -HYDR-3911 PO; +HYDR25TA87 PO; +HYDR50TA46 PO; -MIRA1POW3 PO; +MIRA33506 PO; +STOO100C30 PO
[2023-03-24] MEDS: ONDANSETRON 4MG 2ML VIAL IV ONE (09:20)
[2023-03-24] MEDS: MORPHINE 4 MG/ML 1ML VIAL IV PRN (09:21)
[2023-03-24 09:26] LABS: HEMATOCRIT 39.7 % (42.0-52.0); HEMOGLOBIN 13.4 g/dl (13.5-17.5); MEAN CORPUSCULAR HEMOGLOBIN 33.3 pg (27.0-33.0); MEAN CORPUSCULAR HGB CONC 33.8 g/dl (32.0-36.5); MEAN CORPUSCULAR VOLUME 98.8 fl (80.0-96.0); PLATELET COUNT, AUTOMATED 282 10^3/uL (150-450); RED BLOOD COUNT 4.02 10^6/uL (4.30-6.10); WHITE BLOOD COUNT 9.4 10^3/uL (4.0-10.0)
[2023-03-24 10:08] LABS: BLOOD UREA NITROGEN 24 MG/DL (9-23); CALCIUM LEVEL 10.3 MG/DL (8.5-10.1); CARBON DIOXIDE LEVEL 27 MMOL/L (20-31); CHLORIDE LEVEL 108 MMOL/L (98-107); GLOMERULAR FILTRATION RATE > 60.0 (>56); GLUCOSE, FASTING 117 MG/DL (60-100); POTASSIUM SERUM 4.5 MMOL/L (3.5-5.1); SODIUM LEVEL 142 MMOL/L (136-145)
[2023-03-24] MEDS ORDERED: ACETAMINOPHEN TAB 650MG DOSE (2X325MG) PO PRN (10:45)
[2023-03-24] MEDS: NS 1,000 ML IV SCH (11:13)
[2023-03-24] MEDS ORDERED: MED REC IN PROGRESS XX SCH (11:15)
[2023-03-24] MEDS ORDERED: ACET-683 PO (11:31)
[2023-03-24] MEDS ORDERED: HOME MED LIST COMPLETE! XX SCH (14:05)
[2023-03-24] MEDS: HEPARIN SOD (PORCINE) 5000UNITS/ML 1ML VIAL/SYRINGE SQ SCH (14:13)
[2023-03-24 15:35] VITALS: BP 151/83; TEMP 97.4; O2SAT 94
[2023-03-24] MEDS: MORPHINE 2 MG/ML 1ML VIAL IV PRN (15:56)
[2023-03-24] MEDS: GABAPENTIN 300 MG CAP PO SCH (16:46)
[2023-03-24] MEDS ORDERED: LIDOCAINE 2% 100MG/5ML SDV (FOR ANES.) As Ordered ONE (19:22)
[2023-03-24] MEDS ORDERED: ONDANSETRON 4MG 2ML VIAL As Ordered ONE (19:22)
[2023-03-24] MEDS ORDERED: MIDAZOLAM INJ 2MG/2ML VIAL As Ordered ONE (19:22)
[2023-03-24] MEDS ORDERED: propofoL 200 MG/20 ML VIAL As Ordered ONE (19:22)
[2023-03-24] MEDS ORDERED: fentaNYL 100 MCG/2 ML INJECTION As Ordered ONE (19:23)
[2023-03-24] MEDS ORDERED: KETOROLAC 60MG 2ML VIAL As Ordered ONE (19:24)
[2023-03-24 20:00] VITALS: BP 132/79; TEMP 97.6; O2SAT 96
[2023-03-24 21:42] VITALS: BP 120/71; TEMP 96.6; O2SAT 95
[2023-03-24 23:09] VITALS: BP 133/79; TEMP 98.1; O2SAT 96
[2023-03-25 04:00] VITALS: BP 147/87; TEMP 98.4; O2SAT 96
[2023-03-25 07:09] LABS: HEMATOCRIT 38.9 % (42.0-52.0); HEMOGLOBIN 12.9 g/dl (13.5-17.5); MEAN CORPUSCULAR HEMOGLOBIN 33.1 pg (27.0-33.0); MEAN CORPUSCULAR HGB CONC 33.2 g/dl (32.0-36.5); MEAN CORPUSCULAR VOLUME 99.7 fl (80.0-96.0); PLATELET COUNT, AUTOMATED 249 10^3/uL (150-450); WHITE BLOOD COUNT 4.4 10^3/uL (4.0-10.0)
[2023-03-25 07:43] LABS: BLOOD UREA NITROGEN 26 MG/DL (9-23); CALCIUM LEVEL 9.8 MG/DL (8.5-10.1); CARBON DIOXIDE LEVEL 27 MMOL/L (20-31); CHLORIDE LEVEL 105 MMOL/L (98-107); CREATININE FOR GFR 0.68 MG/DL (0.70-1.30); GLOMERULAR FILTRATION RATE > 60.0 (>56); GLUCOSE, FASTING 152 MG/DL (60-100); POTASSIUM SERUM 4.6 MMOL/L (3.5-5.1); SODIUM LEVEL 137 MMOL/L (136-145)
[2023-03-25 08:02] VITALS: BP 158/94; TEMP 98; O2SAT 98
[2023-03-25] MEDS: ASPIRIN 81MG ENTERIC TABLET PO SCH (09:05)
[2023-03-25] MEDS: DULoxetine 30MG CAPSULE (CYMBALTA) PO SCH (09:05)
[2023-03-25 09:08] VITALS: BP 122/68
[2023-03-25] MEDS ORDERED: IBUPROFEN 600MG TAB PO PRN (10:45)
[2023-03-25 12:53] VITALS: BP 129/67; TEMP 97.6; O2SAT 97
[2023-03-25] MEDS: ONDANSETRON 4MG ORAL DISINTEGRATING TAB PO ONE (13:54)
== END 2023-03-25 15:10 | disposition home health service (06) ==
LOC: M ED 08:40 → M ED INP 08:41 → ENRESERV 14:10 → M PCU 15:30
PROVIDERS: ADMIT Internal Medicine; ATTEND Internal Medicine
DX: T84.020A Dislocation of internal right hip prosthesis, initial encounter (principal); Y79.2 Prosthetic and other implants, materials and accessory orthopedic devices associated with adverse incidents; M24.451 Recurrent dislocation, right hip; F19.10 Other psychoactive substance abuse, uncomplicated; F32.A Depression, unspecified; F41.9 Anxiety disorder, unspecified; K21.9 Gastro-esophageal reflux disease without esophagitis; M19.041 Primary osteoarthritis, right hand; M19.042 Primary osteoarthritis, left hand; I73.9 Peripheral vascular disease, unspecified; I10 Essential (primary) hypertension; G62.9 Polyneuropathy, unspecified; F17.210 Nicotine dependence, cigarettes, uncomplicated; Z82.41 Family history of sudden cardiac death; Z79.899 Other long term (current) drug therapy; Z79.82 Long term (current) use of aspirin
CPT/HCPCS: 27266; 36415; 73501; 73502; 80048; 80307; 83735; 85027; 87635; 93005; 96372; 96374; 96375; 96376; 97116; 97161; 99285; G0378; J1100; J1885; J2250; J2405; J3010

== ENCOUNTER 2023-04-15 16:30 | Observation (INO) | payer MEDICARE, OTHER ==
[~2023-04-15] VITALS: Ht 180.3 cm; Wt 67.6 kg
[2023-04-15] MEDS: ONDANSETRON 4MG 2ML VIAL IV ONE (18:05)
[2023-04-15] MEDS: MORPHINE 4 MG/ML 1ML VIAL IV PRN (18:06)
[2023-04-15 18:12] LABS: HEMATOCRIT 40.2 % (42.0-52.0); HEMOGLOBIN 13.4 g/dl (13.5-17.5); MEAN CORPUSCULAR HEMOGLOBIN 33.7 pg (27.0-33.0); MEAN CORPUSCULAR HGB CONC 33.3 g/dl (32.0-36.5); PLATELET COUNT, AUTOMATED 306 10^3/uL (150-450); RED BLOOD COUNT 3.98 10^6/uL (4.30-6.10)
[2023-04-15 18:42] LABS: BLOOD UREA NITROGEN 12 MG/DL (9-23); CALCIUM LEVEL 9.8 MG/DL (8.3-10.6); CARBON DIOXIDE LEVEL 29 MMOL/L (20-31); CHLORIDE LEVEL 104 MMOL/L (98-107); CREATININE FOR GFR 0.72 MG/DL (0.70-1.30); GLOMERULAR FILTRATION RATE > 60.0 (>49); GLUCOSE, FASTING 85 MG/DL (74-106); POTASSIUM SERUM 4.5 MMOL/L (3.5-5.1); SODIUM LEVEL 138 MMOL/L (136-145)
[2023-04-15] MEDS ORDERED: MED REC IN PROGRESS XX SCH (19:00)
[2023-04-15] MEDS ORDERED: MAALOX 30 ML SUSP *UDC PO PRN (19:55)
[2023-04-15 20:42] LABS: AMPHETAMINES LEVEL URINE NEGATIVE (NEGATIVE)
[2023-04-15 20:43] LABS: BARBITURATES URINE NEGATIVE (NEGATIVE); METHADONE URINE NEGATIVE (NEGATIVE); PHENCYCLIDINE URINE NEGATIVE (NEGATIVE)
[2023-04-15 20:45] LABS: BENZODIAZEPINES URINE POSITIVE (NEGATIVE); CANNABINOIDS URINE POSITIVE (NEGATIVE); COCAINE METABOLITE URINE POSITIVE (NEGATIVE); OPIATES URINE POSITIVE (NEGATIVE)
[2023-04-15] MEDS: DOCUSATE SODIUM 100MG CAPSULE PO SCH (21:00)
[2023-04-15] MEDS: NICOTINE 14 MG/24 HR TRANSDERMAL TD SCH (21:10)
[2023-04-15] MEDS: HYDROMORPHONE HCL 0.5 MG/ 0.5 ML SYRINGE IV PRN (21:11)
[2023-04-15 22:40] VITALS: BP 148/110; TEMP 97.9; O2SAT 94
[2023-04-15] MEDS: ACETAMINOPHEN TAB 650MG DOSE (2X325MG) PO PRN (23:03)
[2023-04-15] MEDS ORDERED: HOME MED LIST COMPLETE! XX SCH (23:10)
[2023-04-16] VITALS (8 sets, daily range): BP systolic 123–184; BP diastolic 80–102; TEMP 97.3–99.3; O2SAT 79–98
[2023-04-16 07:04] LABS: HEMATOCRIT 36.7 % (42.0-52.0); HEMOGLOBIN 12.6 g/dl (13.5-17.5); MEAN CORPUSCULAR HEMOGLOBIN 34.1 pg (27.0-33.0); MEAN CORPUSCULAR HGB CONC 34.3 g/dl (32.0-36.5); MEAN CORPUSCULAR VOLUME 99.5 fl (80.0-96.0); PLATELET COUNT, AUTOMATED 280 10^3/uL (150-450); RED BLOOD COUNT 3.69 10^6/uL (4.30-6.10); WHITE BLOOD COUNT 4.7 10^3/uL (4.0-10.0)
[2023-04-16 07:29] LABS: ALBUMIN 2.8 G/DL (3.2-5.2); ALKALINE PHOSPHATASE 82 U/L (46-116); ALT/SGPT 17 U/L (7.0-40); AST/SGOT 13 U/L (<34); BILIRUBIN,TOTAL 0.7 MG/DL (0.3-1.2); BLOOD UREA NITROGEN 13 MG/DL (9-23); CALCIUM LEVEL 9.3 MG/DL (8.3-10.6); CARBON DIOXIDE LEVEL 29 MMOL/L (20-31); CHLORIDE LEVEL 105 MMOL/L (98-107); CREATININE FOR GFR 0.59 MG/DL (0.70-1.30); GLOMERULAR FILTRATION RATE > 60.0 (>49); GLUCOSE, FASTING 94 MG/DL (74-106); POTASSIUM SERUM 3.9 MMOL/L (3.5-5.1); SODIUM LEVEL 138 MMOL/L (136-145); TOTAL PROTEIN 5.4 G/DL (5.7-8.2)
[2023-04-16] MEDS ORDERED: KETOROLAC 60MG 2ML VIAL As Ordered ONE (08:24)
[2023-04-16] MEDS ORDERED: propofoL 200 MG/20 ML VIAL As Ordered ONE (08:24)
[2023-04-16] MEDS ORDERED: LIDOCAINE 2% INJ 100 MG/5 ML SYRINGE As Ordered ONE (08:24)
[2023-04-16] MEDS ORDERED: MIDAZOLAM INJ 2MG/2ML VIAL As Ordered ONE (08:24)
[2023-04-16] MEDS ORDERED: fentaNYL 100 MCG/2 ML INJECTION As Ordered ONE (08:25)
[2023-04-16] MEDS ORDERED: LIDOCAINE 2% 100MG/5ML SDV (FOR ANES.) As Ordered ONE (08:25)
[2023-04-16] MEDS: DULoxetine 30MG CAPSULE (CYMBALTA) PO SCH (09:00)
[2023-04-16] MEDS: PANTOPRAZOLE 40MG TAB (PROTONIX) PO SCH (09:00)
[2023-04-16] MEDS: GABAPENTIN 300 MG CAP PO SCH (09:00)
[2023-04-16] MEDS: LABETALOL 100MG/20ML VIAL IV STA (09:38)
[2023-04-16] MEDS: HYDROMORPHONE HCL 0.5 MG/ 0.5 ML SYRINGE IV PRN ×3 (09:44→13:16)
[2023-04-16] MEDS: fentaNYL 100 MCG/2 ML INJECTION IV PRN (09:56)
[2023-04-16] MEDS: oxyCODONE 5MG TAB PO PRN (09:56)
[2023-04-16] MEDS ORDERED: ACETAMINOPHEN 500 MG TAB PO ONE (10:00)
[2023-04-16] MEDS: ONDANSETRON 4MG 2ML VIAL IV PRN (10:11)
[2023-04-16] MEDS: ACETAMINOPHEN *IV* 1,000 MG in IV 1 EA IV ONE (10:12)
[2023-04-16] MEDS ORDERED: KETAMINE HCL 200MG/20ML VIAL As Ordered ONE (10:16)
[2023-04-16] MEDS ORDERED: LABETALOL 100MG/20ML VIAL IV PRN (10:30)
[2023-04-16] MEDS ORDERED: hydrALAZINE 20MG/ML 1ML VIAL As Ordered ONE (10:36)
[2023-04-16] MEDS: hydrALAZINE 20MG/ML 1ML VIAL IV PRN (10:57)
[2023-04-16] MEDS: ONDANSETRON 4MG 2ML VIAL IV ONE (11:43)
[2023-04-16] MEDS: LR 1,000 ML IV SCH (12:08)
[2023-04-16] MEDS: METOCLOPRAMIDE INJ 10MG/2ML VIAL IV ONE (14:22)
[2023-04-16] MEDS: LORazepam 2 MG/ML 1ML VIAL IV STA (16:52)
[2023-04-16] MEDS ORDERED: ONDANSETRON 4MG 2ML VIAL IV PRN (18:40)
[2023-04-17 02:00] VITALS: BP 132/84; TEMP 98.7; O2SAT 96
[2023-04-17 06:00] VITALS: BP 161/99; TEMP 98.6; O2SAT 96
[2023-04-17 10:38] VITALS: BP 161/94
[2023-04-17 10:43] VITALS: BP 162/99
[2023-04-17] MEDS: LOSARTAN 50MG TABLET PO ONE (10:43)
[2023-04-17 12:40] VITALS: BP 156/100
== END 2023-04-17 14:00 | disposition home or self-care (01) ==
LOC: M ED 16:30 → M ED INP 19:54 → INTOOBSV 19:54 → M MS5PR 22:39
PROVIDERS: ADMIT Family Medicine; ATTEND Internal Medicine
DX: T84.020A Dislocation of internal right hip prosthesis, initial encounter (principal); Y79.2 Prosthetic and other implants, materials and accessory orthopedic devices associated with adverse incidents; M24.451 Recurrent dislocation, right hip; I16.0 Hypertensive urgency; R11.2 Nausea with vomiting, unspecified; S90.421A Blister (nonthermal), right great toe, initial encounter; X50.3XXA Overexertion from repetitive movements, initial encounter; Y92.410 Unspecified street and highway as the place of occurrence of the external cause; Y93.01 Activity, walking, marching and hiking; Y99.9 Unspecified external cause status; F32.A Depression, unspecified; F19.10 Other psychoactive substance abuse, uncomplicated; F41.9 Anxiety disorder, unspecified; M19.041 Primary osteoarthritis, right hand; J30.1 Allergic rhinitis due to pollen; Z96.653 Presence of artificial knee joint, bilateral; Z96.641 Presence of right artificial hip joint; Z79.899 Other long term (current) drug therapy; Z20.822 Contact with and (suspected) exposure to COVID-19; F17.200 Nicotine dependence, unspecified, uncomplicated; Z91.030 Bee allergy status; Z82.49 Family history of ischemic heart disease and other diseases of the circulatory system
CPT/HCPCS: 27266; 36415; 70450; 72125; 72170; 73501; 73502; 80048; 80053; 80307; 85027; 87486; 87581; 87633; 87798; 93005; 96374; 96375; 96376; 97161; 99285; G0378; J0131; J0360; J1170; J1885; J1920; J2060; J2250; J2405; J2765; J3010

== ENCOUNTER 2023-05-10 10:24 | Inpatient (IN) | payer OTHER ==
[~2023-05-10] VITALS: Ht 180.3 cm; Wt 71.9 kg
[~2023-05-10 10:24] MED LIST changes: +DOCU-153 PO; +HYDR-3910 PO; -HYDR25TA87 PO; +MIRA1POW3 PO; -MIRA33506 PO; -STOO100C30 PO
[2023-05-10] MEDS ORDERED: fentaNYL 100 MCG/2 ML INJECTION IV ONE (14:35)
[2023-05-10] MEDS ORDERED: MED REC IN PROGRESS XX SCH (14:40)
[2023-05-10] MEDS ORDERED: THERTAB52 PO (14:53)
[2023-05-10] MEDS ORDERED: ECOT81TA5 PO (14:53)
[2023-05-10] MEDS ORDERED: ACET-683 PO (14:53)
[2023-05-10] MEDS ORDERED: AMLO1TAB25 PO (14:55)
[2023-05-10] MEDS ORDERED: HOME MED LIST COMPLETE! XX SCH (15:00)
[2023-05-10] MEDS ORDERED: NORCO, ANEXSIA 5/325MG TABLET (HYDROcodone/ACETAMINOPHEN) PO PRN ×2 (15:05)
[2023-05-10] MEDS ORDERED: ONDANSETRON 4MG 2ML VIAL IV PRN (15:05)
[2023-05-10] MEDS ORDERED: SENOKOT S TAB PO PRN (15:05)
[2023-05-10] MEDS ORDERED: ENOXAPARIN 40MG/0.4ML SYRINGE (J1650 PER 10MG) SC ONE (15:05)
[2023-05-10] MEDS ORDERED: ACETAMINOPHEN TAB 650MG DOSE (2X325MG) PO PRN (15:05)
[2023-05-10] MEDS ORDERED: MOM 30ML SUSPENSION UDC PO PRN (15:05)
[2023-05-10] MEDS ORDERED: HYDROMORPHONE HCL 0.5 MG/ 0.5 ML SYRINGE IV PRN (15:05)
[2023-05-10 15:15] LABS: HEMOGLOBIN 12.6 g/dl (13.5-17.5); MEAN CORPUSCULAR HEMOGLOBIN 34.4 pg (27.0-33.0); MEAN CORPUSCULAR HGB CONC 32.3 g/dl (32.0-36.5); MEAN CORPUSCULAR VOLUME 106.6 fl (80.0-96.0); PLATELET COUNT, AUTOMATED 287 10^3/uL (150-450); RED BLOOD COUNT 3.66 10^6/uL (4.30-6.10); WHITE BLOOD COUNT 6.4 10^3/uL (4.0-10.0)
[2023-05-10 15:40] LABS: BLOOD UREA NITROGEN 24 MG/DL (9-23); CALCIUM LEVEL 9.2 MG/DL (8.3-10.6); CARBON DIOXIDE LEVEL 29 MMOL/L (20-31); CHLORIDE LEVEL 107 MMOL/L (98-107); CREATININE FOR GFR 0.65 MG/DL (0.70-1.30); GLOMERULAR FILTRATION RATE > 60.0 (>49); GLUCOSE, FASTING 74 MG/DL (74-106); POTASSIUM SERUM 4.5 MMOL/L (3.5-5.1); SODIUM LEVEL 139 MMOL/L (136-145)
[2023-05-10] MEDS ORDERED: NS 1,000 ML IV SCH (16:00)
[2023-05-10 17:38] VITALS: BP 130/85; TEMP 97.9; O2SAT 96
[2023-05-10] MEDS: HYDROMORPHONE HCL 0.5 MG/ 0.5 ML SYRINGE IV ONE ×2 (18:00→22:46)
[2023-05-10] MEDS: KETOROLAC 30 MG/ML 1ML VIAL IV SCH (18:45)
[2023-05-10 20:39] VITALS: BP 139/75; TEMP 96.5; O2SAT 99
[2023-05-11] VITALS (7 sets, daily range): BP systolic 127–160; BP diastolic 72–95; TEMP 96.8–98.2; O2SAT 95–97
[2023-05-11] MEDS: D5W/0.45% SODIUM CHLORIDE 1,000 ML IV SCH ×2 (05:32→16:46)
[2023-05-11] MEDS: KETOROLAC 30 MG/ML 1ML VIAL IV SCH ×2 (05:33)
[2023-05-11 07:12] LABS: HEMATOCRIT 37.1 % (42.0-52.0); MEAN CORPUSCULAR HEMOGLOBIN 34.4 pg (27.0-33.0); MEAN CORPUSCULAR HGB CONC 32.3 g/dl (32.0-36.5); MEAN CORPUSCULAR VOLUME 106.3 fl (80.0-96.0); PLATELET COUNT, AUTOMATED 233 10^3/uL (150-450); RED BLOOD COUNT 3.49 10^6/uL (4.30-6.10); WHITE BLOOD COUNT 5.6 10^3/uL (4.0-10.0)
[2023-05-11 07:23] LABS: INR 1.04; PROTHROMBIN TIME 13.3 SECONDS (12.5-14.5)
[2023-05-11 07:41] LABS: BLOOD UREA NITROGEN 22 MG/DL (9-23); CALCIUM LEVEL 8.5 MG/DL (8.3-10.6); CARBON DIOXIDE LEVEL 27 MMOL/L (20-31); CHLORIDE LEVEL 110 MMOL/L (98-107); CREATININE FOR GFR 0.65 MG/DL (0.70-1.30); GLOMERULAR FILTRATION RATE > 60.0 (>49); GLUCOSE, FASTING 93 MG/DL (74-106); POTASSIUM SERUM 4.3 MMOL/L (3.5-5.1); SODIUM LEVEL 140 MMOL/L (136-145)
[2023-05-11] MEDS ORDERED: ACETAMINOPHEN 500 MG TAB PO PRN (09:35)
[2023-05-11] MEDS ORDERED: KETOROLAC 30 MG/ML 1ML VIAL IV PRN (09:35)
[2023-05-11] MEDS: traMADol 50 MG TAB PO PRN ×2 (11:24→16:49)
[2023-05-11] MEDS ORDERED: LIDOCAINE 2% 100MG/5ML SDV (FOR ANES.) As Ordered ONE (13:01)
[2023-05-11] MEDS ORDERED: propofoL 200 MG/20 ML VIAL As Ordered ONE (13:01)
[2023-05-11] MEDS ORDERED: fentaNYL 100 MCG/2 ML INJECTION As Ordered ONE (13:49)
[2023-05-11] MEDS ORDERED: MIDAZOLAM INJ 2MG/2ML VIAL As Ordered ONE (13:49)
[2023-05-11] MEDS ORDERED: SUGAMMADEX SODIUM 500 MG/5 ML VIAL (BRIDION) As Ordered ONE (13:57)
[2023-05-11] MEDS ORDERED: ROCURONIUM BROMIDE 50MG/5ML VIAL As Ordered ONE (13:57)
[2023-05-11] MEDS ORDERED: ONDANSETRON 4MG 2ML VIAL As Ordered ONE (14:31)
[2023-05-11] MEDS ORDERED: fentaNYL 100 MCG/2 ML INJECTION IV PRN (14:45)
[2023-05-11] MEDS ORDERED: hydrALAZINE 20MG/ML 1ML VIAL IV PRN (14:45)
[2023-05-11] MEDS ORDERED: HYDROMORPHONE HCL 0.5 MG/ 0.5 ML SYRINGE IV PRN (14:45)
[2023-05-11] MEDS ORDERED: LR 1,000 ML IV SCH (14:45)
[2023-05-11] MEDS ORDERED: oxyCODONE 5MG TAB PO PRN (14:45)
[2023-05-11] MEDS ORDERED: ONDANSETRON 4MG 2ML VIAL IV PRN (14:45)
[2023-05-12] MEDS: D5W/0.45% SODIUM CHLORIDE 1,000 ML IV SCH (02:23)
[2023-05-12 06:46] VITALS: BP 182/100; TEMP 97.5; O2SAT 95
[2023-05-12] MEDS ORDERED: KETOROLAC 30 MG/ML 1ML VIAL IV ONE (07:05)
[2023-05-12] MEDS ORDERED: ACETAMINOPHEN 500 MG TAB PO PRN (07:05)
[2023-05-12 07:46] VITALS: BP 183/106
[2023-05-12] MEDS ORDERED: ACETAMINOPHEN 500 MG TAB PO ONE (08:00)
[2023-05-12] MEDS ORDERED: DULoxetine 30MG CAPSULE (CYMBALTA) PO SCH (09:00)
[2023-05-12] MEDS ORDERED: ASPIRIN 81MG ENTERIC TABLET PO SCH (09:00)
[2023-05-12] MEDS ORDERED: GABAPENTIN 300 MG CAP PO SCH (09:00)
== END 2023-05-12 12:00 | disposition home or self-care (01) | DRG 561 ==
LOC: M ED 10:24 → M ED INP 14:59 → OBSVTOIN 14:59 → INTOOBSV 14:59 → ENRESERV 16:15 → M MS5PR 17:30
PROVIDERS: ADMIT General Practice; ATTEND General Practice
PROC: 2W3 Placement, Anatomical Regions, Immobilization (ICD-10-PCS; 2023-05-11)
PROC: 0SS9XZZ Reposition Right Hip Joint, External Approach (ICD-10-PCS; principal; 2023-05-11 14:00)
DX: T84.020A Dislocation of internal right hip prosthesis, initial encounter (principal); F41.9 Anxiety disorder, unspecified; F32.A Depression, unspecified; M19.049 Primary osteoarthritis, unspecified hand; M24.451 Recurrent dislocation, right hip; Z96.653 Presence of artificial knee joint, bilateral; Z96.643 Presence of artificial hip joint, bilateral; Z79.82 Long term (current) use of aspirin; Z79.899 Other long term (current) drug therapy; Z91.030 Bee allergy status; Z20.822 Contact with and (suspected) exposure to COVID-19

== ENCOUNTER 2023-06-21 13:05 | Observation (INO) | payer MEDICARE, OTHER ==
[~2023-06-21] VITALS: Ht 180.3 cm; Wt 72.6 kg
[~2023-06-21 13:05] MED LIST changes: -DOCU-153 PO; -HYDR-3910 PO; +HYDR25TA87 PO; -MIRA1POW3 PO; +MIRA33506 PO; +STOO100C30 PO; +THERTAB52 PO
[2023-06-21 16:29] LABS: BASO # 0.1 10^3/uL (0.0-0.2); BASO % 0.8 % (0.0-1.0); EOS # 0.3 10^3/uL (0.0-0.5); EOS % 4.5 % (0.0-3.0); HEMATOCRIT 42.8 % (42.0-52.0); HEMOGLOBIN 13.7 g/dl (13.5-17.5); LYMPH # 1.3 10^3/uL (1.5-5.0); LYMPH % 21.6 % (24.0-44.0); MEAN CORPUSCULAR HEMOGLOBIN 33.9 pg (27.0-33.0); MEAN CORPUSCULAR VOLUME 105.9 fl (80.0-96.0); MONO # 0.6 10^3/uL (0.0-0.8); MONO % 9.7 % (2.0-8.0); NEUTROPHILS # 3.9 10^3/uL (1.5-8.5); NEUTROPHILS % 63.1 % (36.0-66.0); PLATELET COUNT, AUTOMATED 258 10^3/uL (150-450); RED BLOOD COUNT 4.04 10^6/uL (4.30-6.10); WHITE BLOOD COUNT 6.2 10^3/uL (4.0-10.0)
[2023-06-21 16:54] LABS: ALBUMIN 3.3 G/DL (3.2-5.2); ALKALINE PHOSPHATASE 90 U/L (46-116); ALT/SGPT 23 U/L (7.0-40); AST/SGOT 18 U/L (<34); BILIRUBIN,TOTAL 0.2 MG/DL (0.3-1.2); BLOOD UREA NITROGEN 22 MG/DL (9-23); CALCIUM LEVEL 8.7 MG/DL (8.3-10.6); CARBON DIOXIDE LEVEL 30 MMOL/L (20-31); CHLORIDE LEVEL 104 MMOL/L (98-107); CREATININE FOR GFR 0.69 MG/DL (0.70-1.30); GLOMERULAR FILTRATION RATE > 60.0 (>49); GLUCOSE, FASTING 78 MG/DL (74-106); POTASSIUM SERUM 4.9 MMOL/L (3.5-5.1); SODIUM LEVEL 135 MMOL/L (136-145); TOTAL PROTEIN 5.9 G/DL (5.7-8.2)
[2023-06-21] MEDS: NS 1,000 ML IV SCH (17:14)
[2023-06-21] MEDS: MORPHINE 2 MG/ML 1ML VIAL IV ONE (17:15)
[2023-06-21 17:26] LABS: INR 1.07; PROTHROMBIN TIME 13.6 SECONDS (12.5-14.5)
[2023-06-21] MEDS ORDERED: ONDANSETRON 4MG 2ML VIAL As Ordered ONE (18:25)
[2023-06-21] MEDS: propofoL 200 MG/20 ML VIAL IV ONE ×2 (18:25)
[2023-06-21] MEDS ORDERED: LIDOCAINE 2% 100MG/5ML SDV (FOR ANES.) As Ordered ONE (18:25)
[2023-06-21] MEDS ORDERED: propofoL 200 MG/20 ML VIAL As Ordered ONE (18:25)
[2023-06-21] MEDS ORDERED: fentaNYL 100 MCG/2 ML INJECTION As Ordered ONE (18:25)
[2023-06-21] MEDS ORDERED: KETOROLAC 60MG 2ML VIAL As Ordered ONE (18:26)
[2023-06-21] MEDS ORDERED: MIDAZOLAM INJ 2MG/2ML VIAL As Ordered ONE (18:38)
[2023-06-21] MEDS: propofoL 200 MG/20 ML VIAL IV.PROC PRN (18:46)
[2023-06-21] MEDS ORDERED: HYDROMORPHONE HCL 0.5 MG/ 0.5 ML SYRINGE IV PRN (19:05)
[2023-06-21] MEDS ORDERED: ONDANSETRON 4MG 2ML VIAL IV PRN (19:05)
[2023-06-21] MEDS ORDERED: oxyCODONE 5MG TAB PO PRN (19:05)
[2023-06-21] MEDS ORDERED: fentaNYL 100 MCG/2 ML INJECTION IV PRN (19:05)
[2023-06-21] MEDS ORDERED: SENNA 8.6 MG TAB (SENOKOT) PO PRN (20:05)
[2023-06-21] MEDS ORDERED: IBUPROFEN 600MG TAB PO PRN (20:05)
[2023-06-21] MEDS ORDERED: diphenhydrAMINE 50MG/ML VIAL IV PRN (20:05)
[2023-06-21] MEDS ORDERED: NAPROXEN 250 MG TAB PO SCH (20:05)
[2023-06-21 20:30] VITALS: BP 113/82; TEMP 97.2; O2SAT 96
[2023-06-21 21:00] VITALS: BP 118/81; TEMP 97.3; O2SAT 96
[2023-06-21 21:15] VITALS: BP 150/98; TEMP 97.3; O2SAT 97
[2023-06-21 21:30] VITALS: BP 121/77; TEMP 97.3; O2SAT 95
[2023-06-21 22:30] VITALS: BP 121/74; TEMP 97.7; O2SAT 94
[2023-06-21] MEDS: LR 1,000 ML IV SCH (22:38)
[2023-06-21] MEDS: ACETAMINOPHEN TAB 650MG DOSE (2X325MG) PO SCH (22:39)
[2023-06-21] MEDS: DOCUSATE SODIUM 100MG CAPSULE PO SCH (22:40)
[2023-06-21 23:17] VITALS: BP 126/75; TEMP 97.3; O2SAT 95
[2023-06-22 00:43] VITALS: BP 150/83; TEMP 97.3; O2SAT 96
[2023-06-22] MEDS ORDERED: MULT-40 PO (01:48)
[2023-06-22] MEDS ORDERED: HOME MED LIST COMPLETE! XX SCH (01:50)
[2023-06-22 05:35] VITALS: BP 150/62; TEMP 97.3; O2SAT 95
[2023-06-22] MEDS: FERROUS SULFATE 325MG TAB PO SCH (10:02)
[2023-06-22] MEDS: ASCORBIC ACID 500 MG TAB PO SCH (10:02)
== END 2023-06-22 13:00 | disposition home or self-care (01) ==
LOC: M ED 13:05 → M SDC 13:06 → M ED INP 13:07 → M ED 18:40 → M MS5PR 20:30
PROVIDERS: ADMIT Orthopaedic Surgery; ATTEND Orthopaedic Surgery
DX: T84.020A Dislocation of internal right hip prosthesis, initial encounter (principal); Y79.2 Prosthetic and other implants, materials and accessory orthopedic devices associated with adverse incidents; M24.451 Recurrent dislocation, right hip; I10 Essential (primary) hypertension; F32.A Depression, unspecified; F19.10 Other psychoactive substance abuse, uncomplicated; F41.9 Anxiety disorder, unspecified; J30.1 Allergic rhinitis due to pollen; Z96.653 Presence of artificial knee joint, bilateral; Z96.641 Presence of right artificial hip joint; Z79.899 Other long term (current) drug therapy; Z79.82 Long term (current) use of aspirin; F17.200 Nicotine dependence, unspecified, uncomplicated; Z91.030 Bee allergy status; Z82.49 Family history of ischemic heart disease and other diseases of the circulatory system
CPT/HCPCS: 27266; 72170; 73502; 80053; 83735; 85025; 85610; 93005; 93041; 94760; 96361; 96374; 97161; 99152; 99285; G0378; J1885; J2250; J2405; J3010

== ENCOUNTER 2023-08-31 05:52 | Day surgery (SDC) | payer OTHER ==
[~2023-08-31] VITALS: Ht 180.3 cm; Wt 65.8 kg
[~2023-08-31 05:52] MED LIST changes: +DOXY-440 PO; -DOXY-444 PO; +HYDR12.55 PO; +MULT-40 PO
[2023-08-31] MEDS ORDERED: LR 1,000 ML IV SCH ×2 (06:45→09:20)
[2023-08-31] MEDS: CelecoXIB 400 MG CAP PO ONE (07:10)
[2023-08-31] MEDS ORDERED: MIDAZOLAM INJ 2MG/2ML VIAL As Ordered ONE (07:12)
[2023-08-31] MEDS ORDERED: fentaNYL 100 MCG/2 ML INJECTION As Ordered ONE (07:12)
[2023-08-31] MEDS ORDERED: LIDOCAINE 2% 100MG/5ML SDV (FOR ANES.) As Ordered ONE (07:13)
[2023-08-31] MEDS ORDERED: ROCURONIUM BROMIDE 50MG/5ML VIAL As Ordered ONE (07:13)
[2023-08-31] MEDS ORDERED: ONDANSETRON 4MG 2ML VIAL As Ordered ONE (07:13)
[2023-08-31] MEDS ORDERED: propofoL 200 MG/20 ML VIAL As Ordered ONE (07:13)
[2023-08-31] MEDS ORDERED: KETOROLAC 60MG 2ML VIAL As Ordered ONE (07:13)
[2023-08-31] MEDS ORDERED: KETAMINE HCL 200MG/20ML VIAL As Ordered ONE (07:34)
[2023-08-31] MEDS ORDERED: METOPROLOL 5 MG/5 ML VIAL As Ordered ONE (07:34)
[2023-08-31] MEDS: ceFAZolin SOD 2 GM in IV 1 EA IV ONE (07:45)
[2023-08-31] MEDS ORDERED: HYDROmorphone HCL 2MG/ML 1ML VIAL As Ordered ONE (08:19)
[2023-08-31] MEDS ORDERED: ACETAMINOPHEN 1000MG 100ML IV BAG As Ordered ONE (08:20)
[2023-08-31] MEDS ORDERED: SUGAMMADEX SODIUM 500 MG/5 ML VIAL (BRIDION) As Ordered ONE (09:10)
[2023-08-31] MEDS: LIDOCAINE 1% SDV 30ML VIAL As Ordered ONE (09:17)
[2023-08-31] MEDS ORDERED: ONDANSETRON 4MG 2ML VIAL IV PRN (09:20)
[2023-08-31] MEDS ORDERED: HYDROMORPHONE HCL 0.5 MG/ 0.5 ML SYRINGE IV PRN (09:20)
[2023-08-31] MEDS ORDERED: oxyCODONE 5MG TAB PO PRN (09:20)
[2023-08-31] MEDS ORDERED: fentaNYL 100 MCG/2 ML INJECTION IV PRN (09:20)
[2023-08-31] MEDS: METOPROLOL 5 MG/5 ML VIAL IV PRN (10:40)
[2023-08-31 11:07] VITALS: BP 167/97
[2023-08-31 12:03] VITALS: BP 173/92; TEMP 97; O2SAT 95
[2023-08-31] MEDS ORDERED: KETOROLAC 30 MG/ML 1ML VIAL IV SCH (15:00)
== END 2023-08-31 12:16 | disposition home or self-care (01) ==
LOC: M SDC 05:52
PROVIDERS: ATTEND Surgery
DX: K40.91 Unilateral inguinal hernia, without obstruction or gangrene, recurrent (principal); K41.30 Unilateral femoral hernia, with obstruction, without gangrene, not specified as recurrent; I10 Essential (primary) hypertension; Z86.19 Personal history of other infectious and parasitic diseases; M19.90 Unspecified osteoarthritis, unspecified site; F41.9 Anxiety disorder, unspecified; F32.A Depression, unspecified; Z87.442 Personal history of urinary calculi; F19.10 Other psychoactive substance abuse, uncomplicated; F17.210 Nicotine dependence, cigarettes, uncomplicated; J30.1 Allergic rhinitis due to pollen; Z86.718 Personal history of other venous thrombosis and embolism; Z91.030 Bee allergy status; Z79.899 Other long term (current) drug therapy; Z79.01 Long term (current) use of anticoagulants
CPT/HCPCS: 49651; 64425; C1781; J0131; J0665; J0690; J1100; J1170; J1885; J2250; J2405; J3010; S2900

== ENCOUNTER 2023-09-17 05:30 | Emergency (ER) | payer MEDICARE, OTHER ==
[~2023-09-17] VITALS: Ht 162.6 cm; Wt 64.5 kg
[2023-09-17 06:07] LABS: BASO # 0.1 10^3/uL (0.0-0.2); BASO % 0.8 % (0.0-1.0); EOS # 0.1 10^3/uL (0.0-0.5); EOS % 1.5 % (0.0-3.0); HEMATOCRIT 38.7 % (42.0-52.0); HEMOGLOBIN 12.7 g/dl (13.5-17.5); LYMPH # 1.8 10^3/uL (1.5-5.0); LYMPH % 24.3 % (24.0-44.0); MEAN CORPUSCULAR HGB CONC 32.8 g/dl (32.0-36.5); MEAN CORPUSCULAR VOLUME 97.5 fl (80.0-96.0); MONO # 0.7 10^3/uL (0.0-0.8); MONO % 8.6 % (2.0-8.0); NEUTROPHILS # 4.9 10^3/uL (1.5-8.5); NEUTROPHILS % 64.3 % (36.0-66.0); PLATELET COUNT, AUTOMATED 321 10^3/uL (150-450); RED BLOOD COUNT 3.97 10^6/uL (4.30-6.10); WHITE BLOOD COUNT 7.6 10^3/uL (4.0-10.0)
[2023-09-17 06:20] LABS: PARTIAL THROMBOPLASTIN TIME 26.8 SECONDS (24.8-34.2)
[2023-09-17 06:37] LABS: BLOOD UREA NITROGEN 25 MG/DL (9-23); CALCIUM LEVEL 9.6 MG/DL (8.3-10.6); CARBON DIOXIDE LEVEL 28 MMOL/L (20-31); CHLORIDE LEVEL 105 MMOL/L (98-107); CREATININE FOR GFR 0.87 MG/DL (0.70-1.30); GLOMERULAR FILTRATION RATE > 60.0 (>49); GLUCOSE, FASTING 106 MG/DL (74-106); POTASSIUM SERUM 4.1 MMOL/L (3.5-5.1); SODIUM LEVEL 138 MMOL/L (136-145)
[2023-09-17] MEDS: KETOROLAC 30 MG/ML 1ML VIAL IV ONE (06:38)
[2023-09-17] MEDS: ACETAMINOPHEN *IV* 1,000 MG in IV 1 EA IV ONE (06:38)
[2023-09-17] MEDS: MORPHINE 4 MG/ML 1ML VIAL IV ONE (06:45)
[2023-09-17] MEDS: diazePAM 2 MG TAB PO ONE (07:34)
[2023-09-17 08:29] LABS: INR 1.04; PROTHROMBIN TIME 13.3 SECONDS (12.5-14.5)
[2023-09-17 08:56] VITALS: BP 122/76; TEMP 98.3; O2SAT 97
== END 2023-09-17 08:56 | disposition short-term general hospital (02) ==
LOC: M ED 05:30 → EDBD 05:30 → M ED 08:56
DX: T84.020A Dislocation of internal right hip prosthesis, initial encounter (principal); I10 Essential (primary) hypertension; F17.210 Nicotine dependence, cigarettes, uncomplicated; F32.A Depression, unspecified; M62.82 Rhabdomyolysis; Z91.030 Bee allergy status; Z79.899 Other long term (current) drug therapy
CPT/HCPCS: 71045; 73502; 80048; 85025; 85610; 85730; 86850; 86900; 86901; 93005; 93041; 94760; 96374; 96375; 99285; J0131; J1885

== ENCOUNTER → 2023-11-11 | Outpatient (CLI) | payer MEDICARE, OTHER | LOC: M RAD 16:31 | PROVIDERS: ATTEND Pediatrics | DX: Z12.2 Encounter for screening for malignant neoplasm of respiratory organs (principal); F17.210 Nicotine dependence, cigarettes, uncomplicated ==

== ENCOUNTER 2024-01-31 22:28 | Observation (INO) | payer MEDICARE ==
[~2024-01-31] VITALS: Ht 180.3 cm; Wt 74.1 kg
[~2024-01-31 22:28] MED LIST changes: +GABA-1172 PO; +GABA-1490 PO; -GABA-282 PO; -GABA600T4 PO
[2024-02-01] VITALS (7 sets, daily range): BP systolic 112–184; BP diastolic 68–97; TEMP 97–98.6; O2SAT 96–99
[2024-02-01 01:21] LABS: BLOOD UREA NITROGEN 18 MG/DL (9-23); CALCIUM LEVEL 9.7 MG/DL (8.3-10.6); CARBON DIOXIDE LEVEL 26 MMOL/L (20-31); CHLORIDE LEVEL 110 MMOL/L (98-107); CK-MB VALUE MASS 2.2 NG/ML (<3.6); CREATININE FOR GFR 0.74 MG/DL (0.70-1.30); GLOMERULAR FILTRATION RATE > 60.0 (>49); GLUCOSE, FASTING 109 MG/DL (74-106); POTASSIUM SERUM 4.6 MMOL/L (3.5-5.1); SODIUM LEVEL 139 MMOL/L (136-145)
[2024-02-01 01:22] LABS: CPK CREATINE PHOSPHOKINASE 156 U/L (46-171); MB/CK RELATIVE INDEX 1.41 (< OR =4)
[2024-02-01] MEDS: MORPHINE 4 MG/ML 1ML VIAL IV PRN ×2 (03:03→08:44)
[2024-02-01] MEDS ORDERED: MOM 30ML SUSPENSION UDC PO PRN (04:30)
[2024-02-01] MEDS ORDERED: ACETAMINOPHEN 325 MG TAB PO PRN (04:30)
[2024-02-01] MEDS ORDERED: NALOXONE INJ 0.4MG/1ML VIAL IV PRN (04:30)
[2024-02-01] MEDS: METHOCARBAMOL 1,000 MG/10 ML VIAL IV ONE ×2 (04:30→14:40)
[2024-02-01] MEDS ORDERED: MAALOX 30 ML SUSP *UDC PO PRN (04:30)
[2024-02-01] MEDS ORDERED: MV-M1TAB59 PO (04:46)
[2024-02-01] MEDS ORDERED: HOME MED LIST COMPLETE! XX SCH (04:50)
[2024-02-01 07:48] LABS: HEMOGLOBIN 10.2 g/dl (13.5-17.5); MEAN CORPUSCULAR HEMOGLOBIN 24.9 pg (27.0-33.0); MEAN CORPUSCULAR HGB CONC 30.9 g/dl (32.0-36.5); MEAN CORPUSCULAR VOLUME 80.5 fl (80.0-96.0); PLATELET COUNT, AUTOMATED 411 10^3/uL (150-450); WHITE BLOOD COUNT 6.2 10^3/uL (4.0-10.0)
[2024-02-01 08:00] LABS: INR 1.11
[2024-02-01 08:17] LABS: ALBUMIN 3.2 G/DL (3.2-5.2); ALKALINE PHOSPHATASE 113 U/L (46-116); ALT/SGPT 18 U/L (7.0-40); AST/SGOT 13 U/L (<34); BILIRUBIN,TOTAL 0.4 MG/DL (0.3-1.2); BLOOD UREA NITROGEN 15 MG/DL (9-23); CALCIUM LEVEL 9.8 MG/DL (8.3-10.6); CARBON DIOXIDE LEVEL 27 MMOL/L (20-31); CHLORIDE LEVEL 110 MMOL/L (98-107); CREATININE FOR GFR 0.73 MG/DL (0.70-1.30); GLOMERULAR FILTRATION RATE > 60.0 (>49); GLUCOSE, FASTING 80 MG/DL (74-106); POTASSIUM SERUM 4.4 MMOL/L (3.5-5.1); SODIUM LEVEL 140 MMOL/L (136-145)
[2024-02-01] MEDS: DOCUSATE SODIUM 100MG CAPSULE PO SCH (08:44)
[2024-02-01] MEDS: DULoxetine 30MG CAPSULE (CYMBALTA) PO SCH (11:29)
[2024-02-01] MEDS ORDERED: ONDANSETRON 4MG 2ML VIAL As Ordered ONE (13:20)
[2024-02-01] MEDS ORDERED: LIDOCAINE 2% 100MG/5ML SDV (FOR ANES.) As Ordered ONE (13:20)
[2024-02-01] MEDS ORDERED: MIDAZOLAM INJ 2MG/2ML VIAL As Ordered ONE (13:20)
[2024-02-01] MEDS ORDERED: fentaNYL 100 MCG/2 ML INJECTION As Ordered ONE (13:20)
[2024-02-01] MEDS ORDERED: ACETAMINOPHEN 1000MG 100ML IV BAG As Ordered ONE (14:00)
[2024-02-01] MEDS ORDERED: ONDANSETRON 4MG 2ML VIAL IV PRN (14:05)
[2024-02-01] MEDS: LR 1,000 ML IV SCH (14:05)
[2024-02-01] MEDS ORDERED: HYDROMORPHONE HCL 0.5 MG/ 0.5 ML SYRINGE IV PRN (14:05)
[2024-02-01] MEDS ORDERED: hydrALAZINE 20MG/ML 1ML VIAL As Ordered ONE (14:11)
[2024-02-01] MEDS: hydrALAZINE 20MG/ML 1ML VIAL IV PRN (14:14)
[2024-02-01] MEDS: fentaNYL 100 MCG/2 ML INJECTION IV PRN (14:22)
[2024-02-01] MEDS ORDERED: METHOCARBAMOL 1,000 MG/10 ML VIAL As Ordered ONE (14:36)
[2024-02-01] MEDS: HYDROMORPHONE HCL 0.5 MG/ 0.5 ML SYRINGE IV PRN (14:58)
[2024-02-01] MEDS: oxyCODONE 5MG TAB PO PRN (15:14)
[2024-02-06 23:43] LABS: ACETONE, URINE None Detected; ETHANOL, URINE None Detected; ISOPROPANOL, URINE None Detected; METHANOL, URINE None Detected
== END 2024-02-01 22:46 | disposition left against medical advice (07) ==
LOC: M ED 22:28 → M ED INP 02-01 04:27 → M MS5PR 02-01 16:00
PROVIDERS: ADMIT Student in an Organized Health Care Education/Training Program; ATTEND Hospitalist
DX: M24.451 Recurrent dislocation, right hip (principal); Z96.643 Presence of artificial hip joint, bilateral; K21.9 Gastro-esophageal reflux disease without esophagitis; F41.9 Anxiety disorder, unspecified; F32.A Depression, unspecified; Z82.49 Family history of ischemic heart disease and other diseases of the circulatory system; F17.210 Nicotine dependence, cigarettes, uncomplicated; Z79.899 Other long term (current) drug therapy; Z91.030 Bee allergy status; J30.1 Allergic rhinitis due to pollen
CPT/HCPCS: 27266; 36415; 73502; 80048; 80053; 81001; 82550; 82553; 83735; 84600; 85027; 85610; 85730; 86850; 86900; 86901; 87086; 93041; 94760; 96374; 96375; 96376; 99285; G0378; J0131; J0360; J1100; J1171; J2250; J2405; J2800; J3010

== ENCOUNTER 2024-04-25 03:12 | Emergency (ER) | payer MEDICARE ==
[~2024-04-25] VITALS: Ht 180.3 cm; Wt 72.7 kg
[~2024-04-25 03:12] MED LIST changes: +MV-M1TAB59 PO
[2024-04-25 06:57] VITALS: BP 202/102
[2024-04-25] MEDS: hydroCHLOROthiazide 12.5 MG CAPSULE PO ONE (06:58)
[2024-04-25 07:09] LABS: BASO # 0.1 10^3/uL (0.0-0.2); BASO % 0.9 % (0.0-1.0); EOS # 0.1 10^3/uL (0.0-0.5); HEMOGLOBIN 12.7 g/dl (13.5-17.5); LYMPH # 0.9 10^3/uL (1.5-5.0); LYMPH % 16.4 % (24.0-44.0); MEAN CORPUSCULAR HGB CONC 31.8 g/dl (32.0-36.5); MEAN CORPUSCULAR VOLUME 85.1 fl (80.0-96.0); MONO # 0.6 10^3/uL (0.0-0.8); NEUTROPHILS # 3.7 10^3/uL (1.5-8.5); NEUTROPHILS % 69.5 % (36.0-66.0); PLATELET COUNT, AUTOMATED 295 10^3/uL (150-450); WHITE BLOOD COUNT 5.4 10^3/uL (4.0-10.0)
[2024-04-25 07:39] LABS: SALICYLATE LEVEL < 3.0 MG/DL (<30)
[2024-04-25 07:40] LABS: BLOOD UREA NITROGEN 20 MG/DL (9-23); CALCIUM LEVEL 9.4 MG/DL (8.3-10.6); CARBON DIOXIDE LEVEL 24 MMOL/L (20-31); CHLORIDE LEVEL 105 MMOL/L (98-107); CREATININE FOR GFR 0.63 MG/DL (0.70-1.30); GLOMERULAR FILTRATION RATE > 60.0 (>49); GLUCOSE, FASTING 110 MG/DL (74-106); POTASSIUM SERUM 5.2 MMOL/L (3.5-5.1); SODIUM LEVEL 138 MMOL/L (136-145)
[2024-04-25] MEDS: IBUPROFEN 600MG TAB PO ONE (07:47)
[2024-04-25 08:05] LABS: HEMOGLOBIN A1c 5.2 % (4.0-6.0)
[2024-04-25 08:19] LABS: ALBUMIN 3.6 G/DL (3.2-5.2); ALKALINE PHOSPHATASE 113 U/L (40-129); ALT/SGPT 23 U/L (7.0-40); AST/SGOT 33 U/L (<34); BILIRUBIN,DIRECT < 0.1 MG/DL (<0.4); BILIRUBIN,TOTAL 0.2 MG/DL (0.3-1.2); TOTAL PROTEIN 6.7 G/DL (5.7-8.2)
[2024-04-25 09:46] LABS: BARBITURATES URINE NEGATIVE (NEGATIVE); BENZODIAZEPINES URINE NEGATIVE (NEGATIVE); CANNABINOIDS URINE NEGATIVE (NEGATIVE); METHADONE URINE NEGATIVE (NEGATIVE); OPIATES URINE NEGATIVE (NEGATIVE); PHENCYCLIDINE URINE NEGATIVE (NEGATIVE)
[2024-04-25 09:51] LABS: AMPHETAMINES LEVEL URINE POSITIVE (NEGATIVE); COCAINE METABOLITE URINE POSITIVE (NEGATIVE)
[2024-04-25] MEDS: GABAPENTIN 300 MG CAP PO ONE (10:04)
[2024-04-25] MEDS ORDERED: HYDR12.55 PO (11:39)
[2024-04-25] MEDS ORDERED: AMLO10TA PO (11:39)
[2024-04-25 12:00] VITALS: O2SAT 97
[2024-04-25 12:14] VITALS: BP 170/102
[2024-04-25 12:24] VITALS: TEMP 97.4
== END 2024-04-25 12:33 | disposition home or self-care (01) ==
LOC: M ED 03:12
DX: G60.8 Other hereditary and idiopathic neuropathies (principal); I10 Essential (primary) hypertension; Z86.718 Personal history of other venous thrombosis and embolism; F17.210 Nicotine dependence, cigarettes, uncomplicated; F19.10 Other psychoactive substance abuse, uncomplicated; Z91.030 Bee allergy status; Z79.899 Other long term (current) drug therapy

== ENCOUNTER → 2024-06-01 | Outpatient (CLI) | payer MEDICARE ==
[~2024-06-01] MED LIST changes: +AMLO10TA PO
== END ==
LOC: M LAB 15:41
PROVIDERS: ATTEND Orthopaedic Surgery
DX: R10.2 Pelvic and perineal pain (principal); Z47.89 Encounter for other orthopedic aftercare

== ENCOUNTER → 2024-06-05 | Outpatient (CLI) | payer MEDICARE | LOC: M WUC 11:38 | PROVIDERS: ATTEND Student in an Organized Health Care Education/Training Program | DX: R53.83 Other fatigue (principal) ==

== ENCOUNTER → 2024-07-03 | Outpatient (CLI) | payer MEDICARE ==
[2024-07-03 10:50] LABS: BASO # 0.1 10^3/uL (0.0-0.2); EOS # 0.3 10^3/uL (0.0-0.5); EOS % 4.3 % (0.0-3.0); HEMATOCRIT 44.3 % (42.0-52.0); HEMOGLOBIN 13.5 g/dl (13.5-17.5); LYMPH % 33.2 % (24.0-44.0); MEAN CORPUSCULAR HEMOGLOBIN 27.3 pg (27.0-33.0); MEAN CORPUSCULAR HGB CONC 30.5 g/dl (32.0-36.5); MEAN CORPUSCULAR VOLUME 89.7 fl (80.0-96.0); MONO # 0.5 10^3/uL (0.0-0.8); MONO % 8.5 % (2.0-8.0); NEUTROPHILS # 3.2 10^3/uL (1.5-8.5); NEUTROPHILS % 52.7 % (36.0-66.0); PLATELET COUNT, AUTOMATED 402 10^3/uL (150-450); RED BLOOD COUNT 4.94 10^6/uL (4.30-6.10)
[2024-07-03 11:03] LABS: ALBUMIN 3.6 G/DL (3.2-5.2)
[2024-07-03 11:10] LABS: PERCENT SATURATION 7.5 % (19.7-50.0)
[2024-07-03 11:13] LABS: FERRITIN 20.7 NG/ML (10.5-307.3)
== END ==
LOC: M LAB 09:46
PROVIDERS: ATTEND Orthopaedic Surgery
DX: T84.84XA Pain due to internal orthopedic prosthetic devices, implants and grafts, initial encounter (principal); M25.551 Pain in right hip; M16.11 Unilateral primary osteoarthritis, right hip; Z96.649 Presence of unspecified artificial hip joint

== ENCOUNTER → 2024-08-01 | Outpatient (REF) | payer MEDICARE ==
[~2024-08-01] MED LIST changes: -AMBI5TAB PO; +AMLO-751 PO; -AMLO10TA PO; -FLOM0.4C39 PO; +TAMS-18 PO; +ZOLP-532 PO
[2024-08-01 17:23] LABS: C REACTIVE PROTEIN QUANTITATIV 1.15 MG/DL (<1.0)
[2024-08-01 17:42] LABS: INR 0.97; PARTIAL THROMBOPLASTIN TIME 29.1 SECONDS (24.8-34.2); PROTHROMBIN TIME 13.2 SECONDS (12.5-14.5)
== END ==
LOC: M LAB REF 17:03
PROVIDERS: ATTEND Internal Medicine
DX: I82.409 Acute embolism and thrombosis of unspecified deep veins of unspecified lower extremity (principal); D64.9 Anemia, unspecified

== ENCOUNTER → 2024-08-16 | Outpatient (REF) | payer MEDICARE ==
[2024-08-16 12:48] LABS: HEMATOCRIT 34.9 % (42.0-52.0); HEMOGLOBIN 10.4 g/dl (13.5-17.5); MEAN CORPUSCULAR HEMOGLOBIN 29.4 pg (27.0-33.0); MEAN CORPUSCULAR HGB CONC 29.8 g/dl (32.0-36.5); MEAN CORPUSCULAR VOLUME 98.6 fl (80.0-96.0); PLATELET COUNT, AUTOMATED 422 10^3/uL (150-450); RED BLOOD COUNT 3.54 10^6/uL (4.30-6.10); WHITE BLOOD COUNT 5.1 10^3/uL (4.0-10.0)
== END ==
LOC: M SHH 12:19
PROVIDERS: ATTEND Internal Medicine
DX: D64.9 Anemia, unspecified (principal)

== ENCOUNTER → 2024-10-15 | Outpatient (REF) | payer MEDICARE ==
[2024-10-15 18:45] LABS: C REACTIVE PROTEIN QUANTITATIV 0.66 MG/DL (<1.0); RHEUMATOID FACTOR QUANT < 3.5 IU/ML (<14)
== END ==
LOC: M LAB REF 17:39
PROVIDERS: ATTEND Internal Medicine
DX: M15.9 Polyosteoarthritis, unspecified (principal); I82.409 Acute embolism and thrombosis of unspecified deep veins of unspecified lower extremity; D50.9 Iron deficiency anemia, unspecified

== ENCOUNTER → 2024-12-06 | Outpatient (CLI) | payer MEDICARE ==
[~2024-12-06] MED LIST changes: +ACET-1515 PO; -ACET650T15 PO; -IBUP-1022 PO; +IBUP600T42 PO
== END ==
LOC: M RAD 13:31
PROVIDERS: ATTEND Internal Medicine
DX: Z12.2 Encounter for screening for malignant neoplasm of respiratory organs (principal); F17.210 Nicotine dependence, cigarettes, uncomplicated; R91.8 Other nonspecific abnormal finding of lung field; J84.10 Pulmonary fibrosis, unspecified; J43.9 Emphysema, unspecified; I25.10 Atherosclerotic heart disease of native coronary artery without angina pectoris

== ENCOUNTER → 2025-01-15 | Outpatient (REF) | payer MEDICARE ==
[2025-01-17 16:26] LABS: HEPATITIS C VIRUS ABY INDEX > 11.00 INDEX (<0.8)
== END ==
LOC: M LAB REF 17:47
PROVIDERS: ATTEND Internal Medicine
DX: Z01.89 Encounter for other specified special examinations (principal); M15.9 Polyosteoarthritis, unspecified

== ENCOUNTER → 2025-01-17 | Outpatient (CLI) | payer MEDICARE | LOC: M RAD 13:42 | PROVIDERS: ATTEND Internal Medicine | DX: Z96.641 Presence of right artificial hip joint (principal); Z91.81 History of falling ==

== ENCOUNTER → 2025-01-30 | Outpatient (REF) | payer MEDICARE ==
[~2025-01-30] MED LIST changes: +AMLO1TAB24 PO; +AMOX500C PO; +CARV12.5 PO; +HYDR-3363 PO; +ONDA-282 PO; +PROBCAP14 PO
[2025-01-30 17:54] LABS: APPEARANCE, URINE HAZY (CLEAR); BACTERIA, URINE AUTO NEGATIVE (NEGATIVE); BILIRUBIN, URINE AUTO NEGATIVE (NEGATIVE); BLOOD, URINE BLOOD NEGATIVE (NEGATIVE); GLUCOSE, URINE (UA) AUTO NEGATIVE (NEGATIVE); KETONE, URINE AUTO NEGATIVE (NEGATIVE); LEUKOCYTE ESTERASE, URINE AUTO NEGATIVE (NEGATIVE); MUCUS, URINE SMALL (NEGATIVE); NITRITE, URINE AUTO NEGATIVE (NEGATIVE); PROTEIN, URINE AUTO NEGATIVE (NEGATIVE); RBC, URINE AUTO 0 /HPF (0-3); SPECIFIC GRAVITY URINE AUTO 1.008 (1.002-1.035); SQUAMOUS EPITHELIAL CELL UR AU 0 /HPF (0-6); UROBILINOGEN, URINE AUTO 0.2 mg/dL (0.0-2.0); WBC, URINE AUTO 0 /HPF (0-3)
== END ==
LOC: M LAB REF 17:05
PROVIDERS: ATTEND Internal Medicine
DX: M06.4 Inflammatory polyarthropathy (principal); R31.9 Hematuria, unspecified

== ENCOUNTER 2025-02-08 18:55 | Observation (INO) | payer MEDICARE ==
[~2025-02-08] VITALS: Ht 175.3 cm; Wt 69.5 kg
[~2025-02-08 18:55] MED LIST changes: -AMLO1TAB24 PO; -CARV12.5 PO; -HYDR-3363 PO; -ONDA-282 PO; -PROBCAP14 PO
[2025-02-08 19:33] LABS: BASO # 0.1 10^3/uL (0.0-0.2); BASO % 0.9 % (0.0-1.0); EOS # 0.1 10^3/uL (0.0-0.5); EOS % 0.8 % (0.0-3.0); LYMPH # 1.5 10^3/uL (1.5-5.0); LYMPH % 23.0 % (24.0-44.0); MONO # 0.6 10^3/uL (0.0-0.8); MONO % 9.4 % (2.0-8.0); NEUTROPHILS # 4.3 10^3/uL (1.5-8.5); NEUTROPHILS % 65.4 % (36.0-66.0); PLATELET COUNT, AUTOMATED 463 10^3/uL (150-450)
[2025-02-08 19:53] LABS: CK-MB VALUE MASS 2.7 NG/ML (<3.6)
[2025-02-08 19:55] LABS: CALCIUM LEVEL 9.7 MG/DL (8.3-10.6); CARBON DIOXIDE LEVEL 22 MMOL/L (20-31); CHLORIDE LEVEL 107 MMOL/L (98-107); CREATININE FOR GFR 0.64 MG/DL (0.70-1.30); GLOMERULAR FILTRATION RATE > 90.0 (>49); POTASSIUM SERUM 4.5 MMOL/L (3.5-5.1); SODIUM LEVEL 139 MMOL/L (136-145)
[2025-02-08 19:56] LABS: CPK CREATINE PHOSPHOKINASE 83 U/L (46-171); MB/CK RELATIVE INDEX 3.25 (< OR =4)
[2025-02-08] MEDS: NS 500 ML IV ONE (20:02)
[2025-02-08 20:11] LABS: ALT/SGPT 25 U/L (7.0-40); AST/SGOT 28 U/L (<34); MAGNESIUM LEVEL 1.9 MG/DL (1.8-2.4)
[2025-02-08] MEDS ORDERED: ISOVUE-370 76% 100 ML VIAL As Ordered ONE (20:37)
[2025-02-08] MEDS: ONDANSETRON 4MG/2ML VIAL IV ONE (20:53)
[2025-02-08 21:22] LABS: CK-MB VALUE MASS 2.6 NG/ML (<3.6)
[2025-02-08 21:24] LABS: CPK CREATINE PHOSPHOKINASE 89.0 U/L (46-171); MB/CK RELATIVE INDEX 2.92 (< OR =4)
[2025-02-08] MEDS ORDERED: ONDA-282 PO (22:14)
[2025-02-08] MEDS: amLODIPine 5 MG TAB PO ONE (22:15)
[2025-02-08] MEDS: hydroCHLOROthiazide 25 MG TAB PO ONE (22:15)
[2025-02-08] MEDS: ONDANSETRON 4MG ORAL DISINTEGRATING TAB PO ONE (22:19)
[2025-02-09] VITALS (17 sets, daily range): BP systolic 145–194; BP diastolic 80–110; TEMP 97.2–98.7; O2SAT 97–99
[2025-02-09] MEDS: hydrALAZINE 20 MG/ML 1 ML VIAL IV STA (00:15)
[2025-02-09] MEDS ORDERED: MOM 30 ML SUSPENSION UDC PO PRN (01:40)
[2025-02-09] MEDS ORDERED: ACETAMINOPHEN *IV* 1,000 MG in IV 1 EA IV PRN (01:40)
[2025-02-09] MEDS ORDERED: MAALOX 30 ML SUSP *UDC PO PRN (01:40)
[2025-02-09] MEDS: LABETALOL 100 MG/20 ML VIAL IV ONE ×2 (02:13→03:47)
[2025-02-09] MEDS: metroNIDAZOLE 500 MG in IV 1 EA IV ONE (02:15)
[2025-02-09] MEDS: LR 1,000 ML IV SCH (02:27)
[2025-02-09] MEDS: FAMOTIDINE IV BAG 20 MG in IV 1 EA IV SCH (02:57)
[2025-02-09] MEDS: ONDANSETRON 4MG/2ML VIAL IV PRN (03:00)
[2025-02-09] MEDS ORDERED: IBUP600T42 PO (04:20)
[2025-02-09] MEDS ORDERED: AMLO1TAB24 PO (04:20)
[2025-02-09] MEDS ORDERED: PROBCAP14 PO (04:21)
[2025-02-09] MEDS ORDERED: HOME MED LIST COMPLETE! XX SCH (04:25)
[2025-02-09] MEDS ORDERED: IBUPROFEN 600 MG TAB PO PRN (05:50)
[2025-02-09] MEDS: hydrALAZINE 20 MG/ML 1 ML VIAL IV ONE (05:51)
[2025-02-09] MEDS: ACETAMINOPHEN 325 MG TAB PO PRN (06:32)
[2025-02-09 07:33] LABS: PLATELET COUNT, AUTOMATED 488 10^3/uL (150-450)
[2025-02-09 08:00] LABS: ETHYL ALCOHOL (ETHANOL) 0.004 % (0.000-0.010)
[2025-02-09 08:02] LABS: CALCIUM LEVEL 9.7 MG/DL (8.3-10.6); CARBON DIOXIDE LEVEL 24 MMOL/L (20-31); CHLORIDE LEVEL 101 MMOL/L (98-107); CREATININE FOR GFR 0.69 MG/DL (0.70-1.30); GLOMERULAR FILTRATION RATE > 90.0 (>49); MAGNESIUM LEVEL 1.7 MG/DL (1.8-2.4); POTASSIUM SERUM 4.0 MMOL/L (3.5-5.1); SODIUM LEVEL 135 MMOL/L (136-145)
[2025-02-09] MEDS: DOCUSATE SODIUM 100 MG CAPSULE PO SCH (08:22)
[2025-02-09] MEDS: amLODIPine 10 MG TAB PO SCH (08:22)
[2025-02-09] MEDS: HEPARIN SOD 5000 UNITS/ML 1 ML VIAL/SYRINGE SC SCH (08:22)
[2025-02-09] MEDS: GABAPENTIN 300 MG CAP PO SCH (08:22)
[2025-02-09 09:33] LABS: KETONE, URINE AUTO RFX NEGATIVE (NEGATIVE); LEUKOCYTE ESTERASE UR AUTO RFX NEGATIVE (NEGATIVE); NITRITE, URINE AUTO RFX NEGATIVE (NEGATIVE); RBC, URINE AUTO RFX 1 /HPF (0-3); SQUAM EPITHELIAL CELL UR AURFX 0 /HPF (0-6); WBC, URINE AUTO RFX 0 /HPF (0-3)
[2025-02-09] MEDS: MAG SULF 1GM/100ML (MAG RUN) 1 GM in IV 1 EA IV ONE (10:14)
[2025-02-09 11:26] LABS: AMPHETAMINES LEVEL URINE NEGATIVE (NEGATIVE); BARBITURATES URINE NEGATIVE (NEGATIVE)
[2025-02-09 11:27] LABS: BENZODIAZEPINES URINE NEGATIVE (NEGATIVE); COCAINE METABOLITE URINE NEGATIVE (NEGATIVE); METHADONE URINE NEGATIVE (NEGATIVE); OPIATES URINE NEGATIVE (NEGATIVE); PHENCYCLIDINE URINE NEGATIVE (NEGATIVE)
[2025-02-09 11:28] LABS: CANNABINOIDS URINE POSITIVE (NEGATIVE)
[2025-02-09] MEDS ORDERED: PROHANCE 279.3MG/ML 15ML VIAL As Ordered ONE (12:08)
[2025-02-09 14:38] LABS: CALCIUM LEVEL 10.0 MG/DL (8.3-10.6); CARBON DIOXIDE LEVEL 24 MMOL/L (20-31); CHLORIDE LEVEL 100 MMOL/L (98-107); CREATININE FOR GFR 0.71 MG/DL (0.70-1.30); GLOMERULAR FILTRATION RATE > 90.0 (>49); POTASSIUM SERUM 4.2 MMOL/L (3.5-5.1); SODIUM LEVEL 135 MMOL/L (136-145)
[2025-02-09 18:08] LABS: INR 0.98
[2025-02-10] VITALS (22 sets, daily range): BP systolic 142–206; BP diastolic 74–118; TEMP 98–98.9; O2SAT 94–98
[2025-02-10 05:47] LABS: BASO # 0.1 10^3/uL (0.0-0.2); BASO % 0.8 % (0.0-1.0); EOS # 0.0 10^3/uL (0.0-0.5); EOS % 0.6 % (0.0-3.0); LYMPH # 1.6 10^3/uL (1.5-5.0); LYMPH % 24.0 % (24.0-44.0); MONO # 0.8 10^3/uL (0.0-0.8); MONO % 11.7 % (2.0-8.0); NEUTROPHILS # 4.1 10^3/uL (1.5-8.5); NEUTROPHILS % 62.6 % (36.0-66.0); PLATELET COUNT, AUTOMATED 531 10^3/uL (150-450)
[2025-02-10 06:11] LABS: CALCIUM LEVEL 9.8 MG/DL (8.3-10.6); CARBON DIOXIDE LEVEL 25 MMOL/L (20-31); CHLORIDE LEVEL 102 MMOL/L (98-107); CREATININE FOR GFR 0.77 MG/DL (0.70-1.30); GLOMERULAR FILTRATION RATE > 90.0 (>49); MAGNESIUM LEVEL 2.1 MG/DL (1.8-2.4); POTASSIUM SERUM 4.6 MMOL/L (3.5-5.1); SODIUM LEVEL 136 MMOL/L (136-145)
[2025-02-10] MEDS ORDERED: SENNA 8.6 MG TAB PO PRN (08:20)
[2025-02-10] MEDS ORDERED: MIRALAX *UNIT DOSE* 17 GM PACKET PO PRN (08:20)
[2025-02-10] MEDS: hydrALAZINE 20 MG/ML 1 ML VIAL IV PRN (08:52)
[2025-02-10] MEDS: PNEUMOC 21-VAL CONJ-DIP CRM/PF 0.5 ML SYRINGE IM.IMMUN ONE (11:24)
[2025-02-10] MEDS ORDERED: AMLO1TAB25 PO (13:27)
[2025-02-10] MEDS ORDERED: CARV12.5 PO (13:27)
[2025-02-10] MEDS ORDERED: HYDR-3363 PO (14:22)
== END 2025-02-10 17:14 | disposition home or self-care (01) ==
LOC: M ED 18:55 → EDBD 18:55 → M ED INP 18:56 → M PCU 02-09 05:11 → INTOOBSV 02-09 05:42 → OBSVTOIN 02-09 05:42 → UNDODISIN 02-10 17:14
PROVIDERS: ADMIT Student in an Organized Health Care Education/Training Program; ATTEND Student in an Organized Health Care Education/Training Program
DX: R11.2 Nausea with vomiting, unspecified (principal); G93.6 Cerebral edema; I16.0 Hypertensive urgency; R91.1 Solitary pulmonary nodule; D64.9 Anemia, unspecified; D75.839 Thrombocytosis, unspecified; R07.89 Other chest pain; R51.9 Headache, unspecified; H53.8 Other visual disturbances; K57.90 Diverticulosis of intestine, part unspecified, without perforation or abscess without bleeding; I10 Essential (primary) hypertension; F41.9 Anxiety disorder, unspecified; Z96.641 Presence of right artificial hip joint; M24.451 Recurrent dislocation, right hip; M25.451 Effusion, right hip; I73.9 Peripheral vascular disease, unspecified; F32.A Depression, unspecified; M19.241 Secondary osteoarthritis, right hand; M19.242 Secondary osteoarthritis, left hand; K21.9 Gastro-esophageal reflux disease without esophagitis; F19.11 Other psychoactive substance abuse, in remission; Z96.643 Presence of artificial hip joint, bilateral; Z96.653 Presence of artificial knee joint, bilateral; Z98.890 Other specified postprocedural states; F17.210 Nicotine dependence, cigarettes, uncomplicated; J30.1 Allergic rhinitis due to pollen; Z79.899 Other long term (current) drug therapy; Z79.2 Long term (current) use of antibiotics; Z23 Encounter for immunization
CPT/HCPCS: 36415; 70450; 70553; 71045; 71260; 71275; 74177; 80048; 80076; 80307; 81001; 82077; 82550; 82553; 83605; 83690; 83735; 84145; 84484; 85025; 85027; 85610; 85730; 87486; 87581; 87633; 87798; 90684; 93005; 93041; 94760; 96365; 96366; 96372; 96375; 96376; 97161; 97530; 99285; A9576; G0009; G0378; J0360; J1308; J1836; J1920; J2060; J2405; J3475; Q9967

== ENCOUNTER 2025-02-15 14:45 | Observation (INO) | payer MEDICARE ==
[~2025-02-15] VITALS: Ht 180.3 cm; Wt 72.7 kg
[~2025-02-15 14:45] MED LIST changes: +AMLO1TAB24 PO; +CARV12.5 PO; +HYDR-3363 PO; +ONDA-282 PO; +PROBCAP14 PO
[2025-02-15] MEDS ORDERED: CYCL-707 (15:57)
[2025-02-15 16:03] LABS: BASO # 0.1 10^3/uL (0.0-0.2); BASO % 0.9 % (0.0-1.0); EOS # 0.2 10^3/uL (0.0-0.5); EOS % 2.2 % (0.0-3.0); LYMPH # 2.0 10^3/uL (1.5-5.0); LYMPH % 29.0 % (24.0-44.0); MONO # 0.7 10^3/uL (0.0-0.8); MONO % 9.6 % (2.0-8.0); NEUTROPHILS # 4.0 10^3/uL (1.5-8.5); NEUTROPHILS % 57.9 % (36.0-66.0); PLATELET COUNT, AUTOMATED 455 10^3/uL (150-450)
[2025-02-15 16:29] LABS: INR 0.94
[2025-02-15] MEDS: KETOROLAC 30 MG/ML 1 ML VIAL IV ONE (16:44)
[2025-02-15] MEDS: ONDANSETRON 4MG/2ML VIAL IV ONE (16:44)
[2025-02-15] MEDS: HYDROMORPHONE HCL 0.5 MG/0.5 ML SYRINGE IV PRN (16:45)
[2025-02-15 17:36] LABS: ALT/SGPT 24 U/L (7.0-40); AST/SGOT 23 U/L (<34); CALCIUM LEVEL 9.3 MG/DL (8.3-10.6); CARBON DIOXIDE LEVEL 27 MMOL/L (20-31); CHLORIDE LEVEL 103 MMOL/L (98-107); CREATININE FOR GFR 0.76 MG/DL (0.70-1.30); GLOMERULAR FILTRATION RATE > 90.0 (>49); POTASSIUM SERUM 4.8 MMOL/L (3.5-5.1); SODIUM LEVEL 137 MMOL/L (136-145)
[2025-02-15] MEDS ORDERED: PROHANCE 279.3MG/ML 15ML VIAL As Ordered ONE (18:24)
[2025-02-15] MEDS ORDERED: HYDR-3363 PO (20:41)
[2025-02-15] MEDS ORDERED: ONDA-282 PO (20:41)
[2025-02-15] MEDS ORDERED: CARV12.5 PO (20:41)
[2025-02-15] MEDS ORDERED: HOME MED LIST COMPLETE! XX SCH (20:45)
[2025-02-15] MEDS ORDERED: ASPIRIN 325 MG TAB PO SCH (23:35)
[2025-02-16] MEDS ORDERED: NICOTINE 7 MG/24 HR TRANSDERMAL TD PRN (00:30)
[2025-02-16 00:58] LABS: BASO # 0.1 10^3/uL (0.0-0.2); BASO % 1.2 % (0.0-1.0); EOS # 0.2 10^3/uL (0.0-0.5); EOS % 3.5 % (0.0-3.0); LYMPH # 2.1 10^3/uL (1.5-5.0); LYMPH % 37.2 % (24.0-44.0); MONO # 0.6 10^3/uL (0.0-0.8); MONO % 10.1 % (2.0-8.0); NEUTROPHILS # 2.7 10^3/uL (1.5-8.5); NEUTROPHILS % 47.5 % (36.0-66.0); PLATELET COUNT, AUTOMATED 415 10^3/uL (150-450)
[2025-02-16 01:07] VITALS: BP 157/88; TEMP 98.7; O2SAT 91
[2025-02-16 01:08] VITALS: BP 157/88; TEMP 98.7; O2SAT 91
[2025-02-16 01:25] LABS: ESTIMATED AVERAGE GLUCOSE 111.0 MG/DL (60-110)
[2025-02-16 01:29] LABS: INR 1.01
[2025-02-16 01:31] LABS: CPK CREATINE PHOSPHOKINASE 58 U/L (46-171)
[2025-02-16 01:33] LABS: ALT/SGPT 20 U/L (7.0-40); AST/SGOT 18 U/L (<34); CALCIUM LEVEL 8.7 MG/DL (8.3-10.6); CARBON DIOXIDE LEVEL 27 MMOL/L (20-31); CHLORIDE LEVEL 104 MMOL/L (98-107); CHOLESTEROL LEVEL 126 MG/DL (<200); CHOLESTEROL RISK RATIO 3.40 (<5); CK-MB VALUE MASS 1.7 NG/ML (<3.6); CREATININE FOR GFR 0.78 MG/DL (0.70-1.30); GLOMERULAR FILTRATION RATE > 90.0 (>49); LDL CHOLESTEROL 68.0 MG/DL (<100); MB/CK RELATIVE INDEX 2.93 (< OR =4); NON-HDL-C 89.0 MG/DL; POTASSIUM SERUM 4.6 MMOL/L (3.5-5.1); SODIUM LEVEL 138 MMOL/L (136-145); TRIGLYCERIDES LEVEL 105 MG/DL (<150)
[2025-02-16] MEDS: GABAPENTIN 300 MG CAP PO SCH (01:34)
[2025-02-16] MEDS: ATORVASTATIN 20 MG TAB PO SCH (01:34)
[2025-02-16] MEDS: ASPIRIN 81 MG ENTERIC TABLET PO SCH (01:35)
[2025-02-16 02:07] VITALS: O2SAT 93
[2025-02-16 04:17] VITALS: BP 152/78; TEMP 98.7; O2SAT 93
[2025-02-16] MEDS: amLODIPine 10 MG TAB PO SCH (08:31)
[2025-02-16 10:53] LABS: VITAMIN B12 LEVEL 427 PG/ML (211-911)
[2025-02-16 12:00] VITALS: BP 117/68; TEMP 98.1; O2SAT 91; O2SAT 94
[2025-02-16] MEDS: ONDANSETRON 4MG ORAL DISINTEGRATING TAB PO PRN (18:50)
[2025-02-16 19:33] VITALS: BP_SYST 126; BP_SYST 157; BP_DIAS 60; BP_DIAS 88; TEMP 98.6; TEMP 98.7; O2SAT 91; O2SAT 94
[2025-02-16] MEDS: ONDANSETRON 4MG/2ML VIAL IV PRN (20:36)
[2025-02-16] MEDS: HEPARIN SOD 5000 UNITS/ML 1 ML VIAL/SYRINGE SQ SCH (21:10)
[2025-02-17 03:59] VITALS: BP 150/82; TEMP 97.2; O2SAT 95
[2025-02-17 08:00] VITALS: BP 169/98; TEMP 97.4; O2SAT 95
[2025-02-17 08:36] VITALS: BP 169/98
[2025-02-17] MEDS ORDERED: ASPI81TAEC PO (09:55)
[2025-02-17] MEDS ORDERED: NICO7PA TD (09:55)
[2025-02-17] MEDS ORDERED: ATOR1TAB21 PO (09:55)
[2025-02-17 12:00] VITALS: BP 130/70; TEMP 98.8; O2SAT 95
[2025-02-17] MEDS ORDERED: CLOP75TA99 PO (16:35)
[2025-02-17] MEDS: CLOPIDOGREL 75 MG TAB PO ONE (16:50)
[2025-02-17] MEDS: ATORVASTATIN 20 MG TAB PO ONE (17:14)
[2025-02-18 18:48] LABS: T P ELECTROPHORESIS SO 5.9 g/dL (6.1-8.1)
[2025-02-20 10:17] LABS: ALBUMIN SPEP 3.3 g/dL (3.8-4.8); ALPHA-1-GLOBULINS SO 0.3 g/dL (0.2-0.3); ALPHA-2-GLOBULINS SO 0.8 g/dL (0.5-0.9); BETA 2 GLOBULIN 0.3 g/dL (0.2-0.5); BETA-GLOBULIN SO 0.4 g/dL (0.4-0.6); GAMMA GLOBULINS SO 0.8 g/dL (0.8-1.7)
[2025-02-20 18:56] LABS: VITAMIN E(ALPHA TOCOPHEROL) 6.8 mg/L (5.7-19.9); VITAMIN E(GAMMA TOCOPHEROL) < 1.0 mg/L (<=4.3)
== END 2025-02-17 17:30 | disposition home or self-care (01) ==
LOC: M ED 14:45 → M ED INP 14:46 → M MSPAV 02-16 00:58
PROVIDERS: ADMIT Student in an Organized Health Care Education/Training Program; ATTEND Internal Medicine
DX: I63.9 Cerebral infarction, unspecified (principal); H53.8 Other visual disturbances; R51.9 Headache, unspecified; K21.9 Gastro-esophageal reflux disease without esophagitis; F41.9 Anxiety disorder, unspecified; G93.6 Cerebral edema; F32.A Depression, unspecified; I73.9 Peripheral vascular disease, unspecified; M19.041 Primary osteoarthritis, right hand; M19.042 Primary osteoarthritis, left hand; Z96.653 Presence of artificial knee joint, bilateral; Z96.643 Presence of artificial hip joint, bilateral; G89.29 Other chronic pain; F17.200 Nicotine dependence, unspecified, uncomplicated; Z71.6 Tobacco abuse counseling; Z79.899 Other long term (current) drug therapy; Z91.030 Bee allergy status
CPT/HCPCS: 36415; 70544; 70553; 71045; 80047; 80048; 80053; 80061; 80076; 82550; 82553; 82607; 83036; 84155; 84165; 84207; 84425; 84446; 84484; 85025; 85610; 85730; 86850; 86900; 86901; 93005; 93306; 93880; 96372; 96374; 96375; 96376; 97161; 97530; 99285; 99406; A9579; G0378; G0463; J1171; J1885; J2405

== ENCOUNTER → 2025-02-17 | Outpatient (CLI) | payer MEDICARE ==
[~2025-02-17] MED LIST changes: +ASPI81TAEC PO; +ATOR1TAB21 PO; +CLOP75TA99 PO; +CYCL-707; +NICO7PA TD
== END ==
LOC: M EKG 15:44
PROVIDERS: ATTEND Internal Medicine
DX: Z53.9 Procedure and treatment not carried out, unspecified reason (principal)

== ENCOUNTER 2025-02-24 16:01 | Inpatient (IN) | payer MEDICARE ==
[~2025-02-24] VITALS: Ht 177.8 cm; Wt 75.8 kg
[2025-02-24 16:38] LABS: BASO # 0.1 10^3/uL (0.0-0.2); BASO % 0.8 % (0.0-1.0); EOS # 0.2 10^3/uL (0.0-0.5); EOS % 3.7 % (0.0-3.0); LYMPH # 1.7 10^3/uL (1.5-5.0); LYMPH % 25.4 % (24.0-44.0); MONO # 0.6 10^3/uL (0.0-0.8); MONO % 9.1 % (2.0-8.0); NEUTROPHILS # 4.0 10^3/uL (1.5-8.5); NEUTROPHILS % 60.5 % (36.0-66.0); PLATELET COUNT, AUTOMATED 349 10^3/uL (150-450)
[2025-02-24] MEDS: MORPHINE 4 MG/ML 1 ML VIAL IV ONE ×2 (16:51→19:16)
[2025-02-24 17:00] LABS: CALCIUM LEVEL 9.1 MG/DL (8.3-10.6); CARBON DIOXIDE LEVEL 28 MMOL/L (20-31); CHLORIDE LEVEL 105 MMOL/L (98-107); CREATININE FOR GFR 0.62 MG/DL (0.70-1.30); GLOMERULAR FILTRATION RATE > 90.0 (>49); POTASSIUM SERUM 4.2 MMOL/L (3.5-5.1); SODIUM LEVEL 140 MMOL/L (136-145)
[2025-02-24 17:18] LABS: INR 0.94
[2025-02-24] MEDS ORDERED: ATOR40TA75 PO (18:06)
[2025-02-24] MEDS ORDERED: CLOP75TA99 PO (18:06)
[2025-02-24] MEDS ORDERED: HOME MED LIST COMPLETE! XX SCH (18:10)
[2025-02-24] MEDS ORDERED: MOM 30 ML SUSPENSION UDC PO PRN (21:55)
[2025-02-24] MEDS ORDERED: MAALOX 30 ML SUSP *UDC PO PRN (21:55)
[2025-02-24] MEDS: ATORVASTATIN 20 MG TAB PO SCH (22:46)
[2025-02-24] MEDS: GABAPENTIN 300 MG CAP PO SCH (22:46)
[2025-02-25] VITALS (8 sets, daily range): BP systolic 147–176; BP diastolic 74–91; TEMP 97.5–98.8; O2SAT 94–96
[2025-02-25] MEDS: KETOROLAC 30 MG/ML 1 ML VIAL IV ONE (05:52)
[2025-02-25] MEDS: CLOPIDOGREL 75 MG TAB PO SCH (08:50)
[2025-02-25] MEDS: DOCUSATE SODIUM 100 MG CAPSULE PO SCH (08:50)
[2025-02-25] MEDS: amLODIPine 10 MG TAB PO SCH (08:51)
[2025-02-25] MEDS: ACETAMINOPHEN 325 MG TAB PO PRN (08:52)
[2025-02-25 09:24] LABS: PLATELET COUNT, AUTOMATED 365 10^3/uL (150-450)
[2025-02-25 09:54] LABS: CALCIUM LEVEL 8.9 MG/DL (8.3-10.6); CARBON DIOXIDE LEVEL 27 MMOL/L (20-31); CHLORIDE LEVEL 107 MMOL/L (98-107); CREATININE FOR GFR 0.67 MG/DL (0.70-1.30); GLOMERULAR FILTRATION RATE > 90.0 (>49); POTASSIUM SERUM 4.8 MMOL/L (3.5-5.1); SODIUM LEVEL 140 MMOL/L (136-145)
[2025-02-25] MEDS ORDERED: HYDROMORPHONE HCL 0.5 MG/0.5 ML SYRINGE IV PRN ×2 (15:30)
[2025-02-25] MEDS ORDERED: diphenhydrAMINE 50 MG/ML VIAL IV PRN ×2 (15:30→15:35)
[2025-02-25] MEDS: HYDROMORPHONE HCL 0.5 MG/0.5 ML SYRINGE IV STA (15:32)
[2025-02-25] MEDS ORDERED: ONDANSETRON 4MG/2ML VIAL IV PRN ×2 (15:35→17:45)
[2025-02-25] MEDS ORDERED: ACETAMINOPHEN 325 MG TAB PO PRN (15:35)
[2025-02-25] MEDS ORDERED: SENNA 8.6 MG TAB PO PRN (15:35)
[2025-02-25] MEDS: HYDROMORPHONE HCL 0.5 MG/0.5 ML SYRINGE IV PRN (15:42)
[2025-02-25] MEDS ORDERED: KETOROLAC 30 MG/ML 1 ML VIAL IV SCH (16:00)
[2025-02-25] MEDS ORDERED: MORPHINE 4 MG/ML 1 ML VIAL IV PRN (17:45)
[2025-02-25] MEDS: MORPHINE 4 MG/ML 1 ML VIAL IV ONE (17:45)
[2025-02-25] MEDS: ENOXAPARIN 40 MG/0.4 ML SYRINGE (J1650 PER 10MG) SC SCH (18:29)
[2025-02-25] MEDS: MORPHINE 4 MG/ML 1 ML VIAL IV PRN (22:29)
[2025-02-26 03:53] VITALS: BP 158/86; TEMP 98.5; O2SAT 96
[2025-02-26 05:58] LABS: PLATELET COUNT, AUTOMATED 383 10^3/uL (150-450)
[2025-02-26 06:22] LABS: CALCIUM LEVEL 8.9 MG/DL (8.3-10.6); CARBON DIOXIDE LEVEL 26 MMOL/L (20-31); CHLORIDE LEVEL 106 MMOL/L (98-107); CREATININE FOR GFR 0.70 MG/DL (0.70-1.30); GLOMERULAR FILTRATION RATE > 90.0 (>49); POTASSIUM SERUM 4.7 MMOL/L (3.5-5.1); SODIUM LEVEL 142 MMOL/L (136-145)
[2025-02-26] MEDS: PANTOPRAZOLE 40MG TAB PO SCH (08:01)
[2025-02-26] MEDS ORDERED: ENOXAPARIN 40 MG/0.4 ML SYRINGE (J1650 PER 10MG) SC SCH (09:00)
[2025-02-26 12:00] VITALS: TEMP 97; O2SAT 95
[2025-02-26] MEDS: MORPHINE 2 MG/ML 1 ML VIAL IV ONE (13:56)
[2025-02-26] MEDS ORDERED: IBUPROFEN 600 MG TAB PO PRN (16:00)
[2025-02-26 20:00] VITALS: BP 164/77; TEMP 99.5; O2SAT 97
[2025-02-27 04:00] VITALS: BP_SYST 119; BP_SYST 132; BP_DIAS 62; BP_DIAS 70; TEMP 98.3; TEMP 99.7; O2SAT 96; O2SAT 97
[2025-02-27 05:55] LABS: PLATELET COUNT, AUTOMATED 389 10^3/uL (150-450)
[2025-02-27 06:17] LABS: CALCIUM LEVEL 8.5 MG/DL (8.3-10.6); CARBON DIOXIDE LEVEL 25 MMOL/L (20-31); CHLORIDE LEVEL 106 MMOL/L (98-107); CREATININE FOR GFR 0.65 MG/DL (0.70-1.30); GLOMERULAR FILTRATION RATE > 90.0 (>49); POTASSIUM SERUM 4.1 MMOL/L (3.5-5.1); SODIUM LEVEL 140 MMOL/L (136-145)
[2025-02-27 12:00] VITALS: BP 155/78; TEMP 97.8; O2SAT 97
[2025-02-27] MEDS: IBUPROFEN 400 MG TAB PO PRN (13:07)
[2025-02-27 19:43] VITALS: BP 180/88; TEMP 98.2; O2SAT 94
[2025-02-27 20:44] VITALS: BP 146/70
[2025-02-28 04:24] VITALS: BP 179/91; TEMP 98.3; O2SAT 96
[2025-02-28 06:11] VITALS: BP 178/96
[2025-02-28 06:14] VITALS: BP 180/94
[2025-02-28 07:27] LABS: PLATELET COUNT, AUTOMATED 382 10^3/uL (150-450)
[2025-02-28 08:12] LABS: CALCIUM LEVEL 8.7 MG/DL (8.3-10.6); CARBON DIOXIDE LEVEL 24 MMOL/L (20-31); CHLORIDE LEVEL 109 MMOL/L (98-107); CREATININE FOR GFR 0.70 MG/DL (0.70-1.30); GLOMERULAR FILTRATION RATE > 90.0 (>49); POTASSIUM SERUM 4.2 MMOL/L (3.5-5.1); SODIUM LEVEL 142 MMOL/L (136-145)
[2025-02-28 12:09] VITALS: BP 151/75; TEMP 97.5; O2SAT 98
[2025-02-28 20:10] VITALS: BP 181/91; TEMP 98.5; O2SAT 95
[2025-03-01 04:35] VITALS: BP 162/80; TEMP 98.3; O2SAT 98
[2025-03-01 06:23] LABS: PLATELET COUNT, AUTOMATED 419 10^3/uL (150-450)
[2025-03-01 06:36] LABS: CALCIUM LEVEL 9.4 MG/DL (8.3-10.6); CARBON DIOXIDE LEVEL 26 MMOL/L (20-31); CHLORIDE LEVEL 104 MMOL/L (98-107); CREATININE FOR GFR 0.65 MG/DL (0.70-1.30); GLOMERULAR FILTRATION RATE > 90.0 (>49); POTASSIUM SERUM 4.5 MMOL/L (3.5-5.1); SODIUM LEVEL 139 MMOL/L (136-145)
[2025-03-01 13:05] VITALS: BP 163/82; TEMP 98.3; O2SAT 98
[2025-03-01 20:00] VITALS: BP 155/79; TEMP 98.7; O2SAT 97
[2025-03-01 21:01] VITALS: BP 155/79
[2025-03-02 04:00] VITALS: BP 168/84; TEMP 99; O2SAT 98
[2025-03-02 06:12] LABS: PLATELET COUNT, AUTOMATED 405 10^3/uL (150-450)
[2025-03-02 06:35] VITALS: BP 182/96; TEMP 99.4; O2SAT 96
[2025-03-02 06:36] LABS: CALCIUM LEVEL 9.5 MG/DL (8.3-10.6); CARBON DIOXIDE LEVEL 25 MMOL/L (20-31); CHLORIDE LEVEL 106 MMOL/L (98-107); CREATININE FOR GFR 0.66 MG/DL (0.70-1.30); GLOMERULAR FILTRATION RATE > 90.0 (>49); POTASSIUM SERUM 4.8 MMOL/L (3.5-5.1); SODIUM LEVEL 141 MMOL/L (136-145)
== END 2025-03-02 06:46 | disposition short-term general hospital (02) | DRG 560 ==
LOC: M ED 16:01 → EDBD 16:01 → M ED INP 21:51 → M MS4PR 02-25 16:06
PROVIDERS: ADMIT Student in an Organized Health Care Education/Training Program; ATTEND Student in an Organized Health Care Education/Training Program
PROC: 0SSBXZZ Reposition Left Hip Joint, External Approach (ICD-10-PCS; principal; 2025-02-25 09:00)
DX: T84.021A Dislocation of internal left hip prosthesis, initial encounter (principal); I69.354 Hemiplegia and hemiparesis following cerebral infarction affecting left non-dominant side; I73.9 Peripheral vascular disease, unspecified; I69.328 Other speech and language deficits following cerebral infarction; K21.9 Gastro-esophageal reflux disease without esophagitis; F41.9 Anxiety disorder, unspecified; F32.A Depression, unspecified; F17.210 Nicotine dependence, cigarettes, uncomplicated; M19.90 Unspecified osteoarthritis, unspecified site; W19.XXXA Unspecified fall, initial encounter; Y92.9 Unspecified place or not applicable; Z96.643 Presence of artificial hip joint, bilateral; Z96.653 Presence of artificial knee joint, bilateral; Z79.02 Long term (current) use of antithrombotics/antiplatelets; Z79.899 Other long term (current) drug therapy; G89.29 Other chronic pain; Z91.030 Bee allergy status

== ENCOUNTER 2025-03-09 02:32 | Emergency (ER) | payer MEDICARE ==
[~2025-03-09] VITALS: Ht 180.3 cm; Wt 72.3 kg
[~2025-03-09 02:32] MED LIST changes: +ATOR40TA75 PO
[2025-03-09] MEDS ORDERED: OXYC-517 PO (03:56)
[2025-03-09] MEDS ORDERED: ONDA-83 PO (03:56)
[2025-03-09] MEDS ORDERED: DIAZ5TAB PO (03:56)
[2025-03-09] MEDS ORDERED: ACET-907 PO (03:56)
[2025-03-09] MEDS: amLODIPine 10 MG TAB PO ONE (04:51)
[2025-03-09] MEDS ORDERED: ACETAMINOPHEN 325 MG TAB PO PRN (06:40)
[2025-03-09 07:16] VITALS: TEMP 98.3
[2025-03-09] MEDS ORDERED: HOME MED LIST COMPLETE! XX SCH (08:05)
[2025-03-09 08:14] VITALS: BP 150/87; O2SAT 95
[2025-03-09] MEDS ORDERED: GABAPENTIN 300 MG CAP PO SCH (09:00)
[2025-03-09] MEDS: CLOPIDOGREL 75 MG TAB PO SCH (09:10)
[2025-03-09] MEDS: GABAPENTIN 300 MG CAP PO SCH (09:11)
[2025-03-09] MEDS: ASPIRIN 81 MG ENTERIC TABLET PO SCH (09:11)
[2025-03-09] MEDS ORDERED: ATORVASTATIN 20 MG TAB PO SCH (21:00)
[2025-03-10] MEDS ORDERED: amLODIPine 10 MG TAB PO SCH (09:00)
== END 2025-03-09 09:23 | disposition left against medical advice (07) ==
LOC: EDBD 02:32 → M ED 02:32
DX: I10 Essential (primary) hypertension (principal); G89.18 Other acute postprocedural pain; K21.9 Gastro-esophageal reflux disease without esophagitis; F17.210 Nicotine dependence, cigarettes, uncomplicated; Z91.030 Bee allergy status; Z91.09 Other allergy status, other than to drugs and biological substances; Z79.1 Long term (current) use of non-steroidal anti-inflammatories (NSAID); Z79.899 Other long term (current) drug therapy; Z53.9 Procedure and treatment not carried out, unspecified reason